=== PATIENT | male | born 1955 | race African-American/Black ===

== ENCOUNTER 2016-11-30 19:30 | Inpatient (IN) | payer OTHER, MEDICARE ==
[~2016-11-30] VITALS: Ht 182.9 cm; Wt 83.7 kg
[~2016-11-30 19:30] MED LIST: AMLO10TA2 PO; CARV12.52 PO; CLON0.1T PO; IRON18TA PO; TRAM50TA PO
[2016-11-30] MEDS ORDERED: PANTOPRAZOLE IV PUSH 40 MG VIAL. IVP ONE (20:00)
[2016-11-30] MEDS ORDERED: IV NORMAL SALINE 1000ML BAG 1,000 ML IV ONE (20:00)
[2016-11-30] MEDS: PANTOPRAZOLE SODIUM IV 80 MG in IV NORMAL SALINE 100ML 100 ML IV SCH (20:05)
[2016-11-30 20:07] LABS: BASO # 0.1 x10^3/uL (0.0-0.2); BASO % 1 % (0-3); EOS % 0 % (0-3); HEMATOCRIT 24.4 % (39.0-53.0); HEMOGLOBIN 7.8 g/dL (13.0-17.5); LYMPH % 10 % (24-48); MEAN CORPUSCULAR HEMOGLOBIN 26 pg (25-35); MEAN CORPUSCULAR HGB CONC 32 g/dL (31-37); MEAN CORPUSCULAR VOLUME 80 fL (79-100); MONO % 5 % (0-9); NEUT % 84 % (31-73); PLATELET COUNT 234 x10^3/uL (140-400); RED BLOOD COUNT 3.05 x10^6/uL (4.30-5.70); RED CELL DISTRIBUTION WIDTH 19.2 % (11.5-14.5); WHITE BLOOD COUNT 20.8 x10^3/uL (4.0-11.0)
--- NOTE | 2016-11-30 20:20 | ED.ADGEN ---
Past Medical History Past Medical History: Diabetes-Type II, Hypertension, Renal Failure Additional Past Medical Histor: KIDNEY DISEASE Past Surgical History: Other Additional Past Surgical Histo: Lt arm dialysis shunt Alcohol Use: None Drug Use: Marijuana Adult General Chief Complaint Chief Complaint: GI PROBLEM HPI HPI Patient is a 61 year old male with history diabetes, hypertension, end-stage renal disease requiring dialysis who presents with multiple episodes of coffee-ground emesis following dialysis at 10 AM this morning. Patient reports diffuse abdominal pain, dizziness lightheadedness accompanied with a syncopal episode. On ED arrival, the patient's tachycardic type hypotensive and mildly diaphoretic. Complains of diffuse abdominal pain and persistent nausea. Patient also reports dark stools for the past several hours. Denies history of cirrhosis, chronic liver disease, peptic ulcer disease or gastritis. Patient takes daily baby aspirin but is not on anticoagulation therapy. No other acute symptoms or complaints. Patient denies routine alcohol use. Review of Systems Review of Systems ROS as per HPI. All other ROS as HPI. Current Medications Current Medications Current Medications Medications (Trade) Dose Ordered Sig/Julian Start Time Stop Time Status Last Admin Dose Admin Fentanyl Citrate (Fentanyl 2ml Vial) 50 mcg 1X ONCE 11/30/16 20:30 11/30/16 20:31 DC 11/30/16 20:16 50 MCG Info (Do NOT chart on this entry -- for MONITORING) 1 each PRN DAILY PRN 11/30/16 20:45 12/02/16 20:44 Iohexol (Omnipaque 300 Mg/ml) 75 ml 1X ONCE 11/30/16 21:00 11/30/16 21:01 DC 11/30/16 21:16 75 ML Metoclopramide HCl (Reglan) 10 mg 1X ONCE 11/30/16 21:30 11/30/16 21:31 DC Ondansetron HCl (Zofran) 8 mg 1X ONCE 11/30/16 20:30 11/30/16 20:31 DC 11/30/16 20:15 8 MG Pantoprazole Sodium (Protonix Vial) 80 mg 1X ONCE 11/30/16 20:00 11/30/16 20:01 DC 11/30/16 20:05 80 MG Pantoprazole Sodium 80 mg/ Sodium Chloride 100 ml @ 10 mls/hr Q10H 11/30/16 20:00 11/30/16 20:05 10 MLS/HR Sodium Chloride 1,000 ml @ 1,000 mls/hr 1X ONCE 11/30/16 20:00 11/30/16 20:59 DC 11/30/16 20:06 1,000 MLS/HR Allergies Allergies Allergies Coded Allergies Type Severity Reaction Last Updated Verified No Known Drug Allergies 08/27/13 No Physical Exam Physical Exam Constitutional: Clammy, weak appearing HENT: Normocephalic, atraumatic, bilateral external ears normal, oropharynx moist, dark brown dried blood around nares and on tongue/ Eyes: PERRLA, EOMI, conjunctiva pale. Neck: Normal range of motion. Cardiovascular: Tachycardic. Lungs & Thorax: Bilateral breath sounds clear to auscultation. Abdomen: Bowel sounds normal, soft, bowel diffuse epigastric pain, no rebound rigidity or guarding. Skin: Diaphoretic. Skin color appropriate for ethnicity. Extremities: No tenderness. Neurologic: Alert and oriented X 3, normal motor function, normal sensory function. Psychologic: Affect normal, judgement normal, mood normal. Current Patient Data Vital Signs Vital Signs Date Time Temp Pulse Resp B/P (MAP) Pulse Ox O2 Delivery O2 Flow Rate FiO2 11/30/16 20:55 96 12 96/54 (68) 100 11/30/16 19:45 Room Air 11/30/16 19:37 97.5 97.5 Lab Values Laboratory Tests Test 11/30/16 19:43 11/30/16 19:56 White Blood Count 20.8 x10^3/uL (4.0-11.0) H Red Blood Count 3.05 x10^6/uL (4.30-5.70) L Hemoglobin 7.8 g/dL (13.0-17.5) L Hematocrit 24.4 % (39.0-53.0) L Mean Corpuscular Volume 80 fL (79-100) Mean Corpuscular Hemoglobin 26 pg (25-35) Mean Corpuscular Hemoglobin Concent 32 g/dL (31-37) Red Cell Distribution Width 19.2 % (11.5-14.5) H Platelet Count 234 x10^3/uL (140-400) Neutrophils (%) (Auto) 84 % (31-73) H Lymphocytes (%) (Auto) 10 % (24-48) L Monocytes (%) (Auto) 5 % (0-9) Eosinophils (%) (Auto) 0 % (0-3) Basophils (%) (Auto) 1 % (0-3) Neutrophils # (Auto) 17.5 x10^3uL (1.8-7.7) H Lymphocytes # (Auto) 2.0 x10^3/uL (1.0-4.8) Monocytes # (Auto) 1.1 x10^3/uL (0.0-1.1) Eosinophils # (Auto) 0.0 x10^3/uL (0.0-0.7) Basophils # (Auto) 0.1 x10^3/uL (0.0-0.2) Segmented Neutrophils % 87 % (35-66) H Lymphocytes % 8 % (24-48) L Monocytes % 4 % (0-10) Basophils % 1 % (0-3) Platelet Estimate Adequate (ADEQUATE) Polychromasia Slight Target Cells Occ Ovalocytes Occ Stomatocytes Occ Prothrombin Time 15.0 SEC (11.7-14.0) H Prothrombin Time INR 1.3 (0.8-1.1) H PTT 31 SEC (24-38) Sodium Level 141 mmol/L (136-145) Potassium Level 4.1 mmol/L (3.5-5.1) Chloride Level 98 mmol/L (98-107) Carbon Dioxide Level 29 mmol/L (21-32) Anion Gap 14 (6-14) Blood Urea Nitrogen 66 mg/dL (8-26) H Creatinine 9.2 mg/dL (0.7-1.3) H Estimated GFR (Cockcroft-Gault) 7.1 BUN/Creatinine Ratio 7 (6-20) Glucose Level 235 mg/dL (70-99) H Calcium Level 8.0 mg/dL (8.5-10.1) L Total Bilirubin 0.3 mg/dL (0.2-1.0) Aspartate Amino Transferase (AST) 10 U/L (15-37) L Alanine Aminotransferase (ALT) 19 U/L (16-63) Alkaline Phosphatase 49 U/L (46-116) Total Protein 7.3 g/dL (6.4-8.2) Albumin 3.1 g/dL (3.4-5.0) L Albumin/Globulin Ratio 0.7 (1.0-1.7) L Lipase 231 U/L (73-393) Ethyl Alcohol Level < 10 mg/dL (0-10) Glucose (Fingerstick) 248 mg/dL (70-99) H Laboratory Tests 11/30/16 19:43 Laboratory Tests 11/30/16 19:43 EKG EKG [EKG: Sinus tach, rate 106, QTC 491, no acute ST-T wave changes.] Radiology/Procedures Radiology/Procedures [CT abdomen pelvis: No acute cardiopulmonary disease.] Course & Med Decision Making Course & Med Decision Making Pertinent Labs and Imaging studies reviewed. (See chart for details) [Patient with acute upper GI bleed with blood loss anemia. Patient initially presents with tachycardia and hypotension with one episode of coffee-ground emesis while in the ED. IV fluids, Protonix bolus and drip given. Abdomen soft, nonsurgical. CT abdomen pelvis is nonacute. Blood pressure, abdominal pain improved with treatment. Patient states he feels much better. Vital signs stabilized. Suspect elevated white blood cell count is stress reaction. Clinically I do not suspect sepsis and multiple boluses of IV fluids are currently contraindicated given patient's end-stage renal disease. Case reviewed in detail with Dr. Mehdi Still. Recommendations are to continue IV fluids, antiemetics, Protonix drips with GI consult in the morning. Patient will be admitted to the ICU. Dr. Martinez accepts care of the patient. Courtesy bridging orders written.] Dragon Disclaimer Dragon Disclaimer This electronic medical record was generated, in whole or in part, using a voice recognition dictation system. HERNANDEZ FIELDS DO Nov 30, 2016 20:20
[2016-11-30 20:24] LABS: CREATININE 9.2 mg/dL (0.7-1.3); GFR 7.1; POTASSIUM 4.1 mmol/L (3.5-5.1)
[2016-11-30] MEDS ORDERED: fentaNYL PF VIAL 100 MCG/2 ML VIAL IV ONE (20:30)
[2016-11-30] MEDS ORDERED: ONDANSETRON PF 4 MG/2 ML VIAL. IV ONE (20:30)
[2016-11-30 20:44] LABS: ALBUMIN 3.1 g/dL (3.4-5.0); ALBUMIN/GLOBULIN RATIO 0.7 (1.0-1.7); TOTAL BILIRUBIN 0.3 mg/dL (0.2-1.0); TOTAL PROTEIN 7.3 g/dL (6.4-8.2)
[2016-11-30] MEDS ORDERED: CONTRAST GIVEN MC PRN (20:45)
[2016-11-30 20:52] LABS: INR 1.3 (0.8-1.1)
[2016-11-30] MEDS ORDERED: IOHEXOL 300 MG/ML 75 ML VIAL IV ONE (21:00)
[2016-11-30] MEDS ORDERED: METOCLOPRAMIDE HCL 10 MG/2 ML VIAL. IV ONE (21:30)
--- NOTE | 2016-11-30 21:35 | RAD ---
CT abdomen and pelvis with contrast History: Left upper quadrant pain, history of kidney failure Technique: After the administration of intravenous contrast, CT imaging was performed of the abdomen and pelvis. No oral contrast was given as per request. Multiplanar images are reviewed. Exposure: One or more of the following individualized dose reduction techniques were utilized for this examination: 1. Automated exposure control 2. Adjustment of the mA and/or kV according to patient size 3. Use of iterative reconstruction technique. Comparison: August 05, 2012 Findings: There is some emphysema of the visualized lung bases. There is no new significant abnormality of the liver, spleen, pancreas, adrenal glands. Band of density along the right dome of the liver is grossly unchanged. Both kidneys enhance without hydronephrosis. There is again 1.3 cm hypodense lesion of the superior right kidney although density measurements indeterminate for simple cyst on this exam 26 Hounsfield units. There is also 1 cm hypodense lesion of the inferior right kidney also with indeterminate density measurements indeterminate for a simple cyst. Tiny hypodense lesion mid left kidney is too small to otherwise characterize at 0.3 cm in size. Kidneys are small.Gallbladder is present without obvious intraluminal abnormality by CT. Accurate evaluation of bowel is limited without oral contrast. There is no significant inflammatory change adjacent to the bowel. There is no evidence of bowel obstruction, free fluid, or free air. Normal appendix is visualized. Relative wall prominence of the stomach could be accentuated by nondistention during exam. Abdominal aortic caliber is within normal limits, scattered plaque present. Urinary bladder is not well distended during exam. Impression: 1. Relative wall prominence of stomach could be due to nondistention during exam unless suspicion for gastritis. 2. Kidneys are small, no hydronephrosis. There are 2 indeterminate small hypodense foci of the right kidney for which nonemergent ultrasound evaluation may be beneficial, also small hypodense lesion of the left kidney too small to characterize accurately. Electronically signed by: Elijah Rodriguez MD (11/30/2016 9:31 PM) [facility]
[2016-11-30 21:39] LABS: % BASOS 1 % (0-3)
[2016-11-30 21:40] LABS: OVALOCYTES OCC; PLT ESTIMATE ADEQUATE (ADEQUATE); POLYCHROMASIA SLIGHT; STOMATOCYTES OCC; TARGET CELLS OCC
[2016-11-30] MEDS ORDERED: ONDANSETRON PF 4 MG/2 ML VIAL. IV PRN (21:45)
[2016-11-30] MEDS: IV NORMAL SALINE 1000ML BAG 1,000 ML IV SCH (22:47)
[2016-11-30 23:20] VITALS: BP 119/85
[2016-11-30 23:30] VITALS: BP 134/61
[2016-11-30 23:45] VITALS: BP 87/57
[2016-12-01] VITALS (34 sets, daily range): BP systolic 81–171; BP diastolic 50–99
[2016-12-01 00:49] LABS: RED BLOOD COUNT 2.63 x10^6/uL (4.30-5.70); RED CELL DISTRIBUTION WIDTH 19.4 % (11.5-14.5); WHITE BLOOD COUNT 19.9 x10^3/uL (4.0-11.0)
[2016-12-01 00:54] LABS: HEMATOCRIT 20.9 % (39.0-53.0); HEMOGLOBIN 6.7 g/dL (13.0-17.5)
--- NOTE | 2016-12-01 02:09 | ACF ---
Admission Forms Criteria GASTROINTESTINAL BLEEDING Clinical Indications for Inpatient Care (Place 'X' for any and all applicable criteria): Ongoing inpatient care may be indicated for gastrointestinal bleeding with ANY ONE of the following (4)(20)(21)(22)(23)(24): [ ]I. Active bleeding (eg, fresh voluminous blood in emesis or nasogastric aspirate, or per rectum) [X]II. Hemodynamic instability [ ]III. Anticoagulation therapy or coagulopathy ((eg, advanced liver disease, irreversible anticoagulation) [ ]IV. Ischemic colitis (22) [ ]V. Endoscopy showing arterial bleeding, adherent clot, nonbleeding visible vessel, varices, flat red spots, ulcer size greater than 2 cm, or portal hypertensive gastropathy [ ]. High-risk low platelet count [ ]VII. Anemia requiring inpatient care as indicated by ANY ONE of the following a)[ ] Cognitive impairment b)[ ] Syncope c)[ ] Heart failure d)[ ] Chest pain e)[ ] Dyspnea f)[ ] Other findings suggesting inadequate perfusion (eg, peripheral or myocardial ischemia, end organ dysfunction) [ ]VIII. High-risk low platelet count [ ]IX. Suspected variceal cause of bleeding as indicated by ANY ONE of the following(27)(28): a)[ ] Known varices b)[ ] Hepatomegaly or splenomegaly c)[ ] Ascites d)[ ] Jaundice or scleral icterus e)[ ] History of liver disease (eg, cirrhosis) f)[ ] Physical findings of portal hypertension (eg, caput medusa) g)[ ] Comorbid disorder indicating risk for portal vein thrombosis (eg , abdominal surgery, sepsis, shock, exchange transfusion, prior umbilical vein catheterization) Extended stay may be needed until ALL of the following are present(20)(38)(47): [ ]a) Hemodynamic stability [ ]b) No evidence of active bleeding (eg, stable Hematocrit) [ ]c) Platelet count, prothrombin time, and partial thromboplastin time acceptable for next level of care [ ]d) Surgical or other acute intervention not needed [ ]e) Oral hydration and diet tolerated The original [employer] content created by Larry Stephenson has been revised. The portions of the content which have been revised are identified through the use of italic text or in bold, and aLrry Stephenson has neither reviewed nor approved the modified material. All other unmodified content is copyright [facility]. Please see references footnoted in the original [facility] edition 2016 Admission Criteria Met?: Yes AUDREY MONTEIRO Dec 01, 2016 02:08
[2016-12-01] MEDS ORDERED: NOREPINEPHRIN PREMIX 250 ML IV ONE (03:40)
[2016-12-01] MEDS ORDERED: NOREPINEPHRIN PREMIX 250 ML IV PRN (04:15)
[2016-12-01] MEDS: PANTOPRAZOLE SODIUM IV 80 MG in IV NORMAL SALINE 100ML 100 ML IV SCH ×3 (04:30→23:19)
[2016-12-01] MEDS: IV NORMAL SALINE 1000ML BAG 1,000 ML IV SCH ×3 (05:44→16:07)
--- NOTE | 2016-12-01 06:05 | EKG ---
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
[2016-12-01] MEDS: MORPHINE SULFATE 4 MG/ML DISP.SYRIN. IV PRN ×2 (06:22→08:31)
--- NOTE | 2016-12-01 07:29 | RAD ---
AP chest radiograph 11/30/2016 Clinical indication: Shortness of air. Comparison: 07/22/2014 Findings: Cardiac and mediastinal silhouettes are within normal limits. There is a stable calcified nodule in the left lung base and bilateral pulmonary gabriella. No pleural effusion, pneumothorax or focal consolidation. Impression: No acute cardiopulmonary abnormality.
[2016-12-01] MEDS ORDERED: PNEUMOC CONJ VACC 23-VALENT 0.5 ML VIAL. VAX IM ONE (09:00)
[2016-12-01] MEDS ORDERED: PNEUMOCOCCAL VAX SCREEN BY RX. MC ONE (09:00)
[2016-12-01 09:31] LABS: CALCIUM 7.3 mg/dL (8.5-10.1); GFR 6.4; POTASSIUM 4.6 mmol/L (3.5-5.1)
--- NOTE | 2016-12-01 09:33 | PDOC2 ---
GI CONSULT Reason For Consult: Hematemesis HPI: HPI: 61 y/o male who developed upper abdominal pain after dialysis yesterday. Subsequently had coffee-ground emesis and presented to ER. Melanotic stools as well. Reasonably stable overnight, but this am, hypotension and small volume coffee-ground emesis (witnessed). No h/o prior GI bleeding. Recently some heartburn and dyspepsia, using TUMS prn. No dysphagia or prior h/o PUD. No prior EGD. Denies liver, GB or pancreatic disease. Smokes. No alcohol. ASA 81mg daily, otherwise no NSAIDS. Stools generally loose w/o h/o overt blood in stool. Had colonoscopy nearly 5 years ago, perhaps with polyps found. PMH: PMH: DM, HTN, ESRD on HD. S/p left arm AV fistula. FH: Family History: No pertinent hx Social History: ALCOHOL: none Drugs: Marijuana ROS: GEN: Denies fevers, chills, sweats HEENT: Denies blurred vision, sore throat CV: Denies chest pain RESP: Denies shortness of air, cough GI: Per HPI : Denies hematuria, dysuria ENDO: Denies weight changes NEURO: Denies confusion, dizziness MSK: Denies weakness, joint pain/swelling SKIN: Denies jaundice, pruritus Vitals: Vitals: Vital Signs Date Time Temp Pulse Resp B/P (MAP) Pulse Ox O2 Delivery O2 Flow Rate FiO2 12/01/16 09:05 112 19 85/54 (64) 99 Room Air 12/01/16 07:00 97.4 97.4 Labs: Labs: Laboratory Tests Test 11/30/16 19:43 11/30/16 19:56 12/01/16 00:30 White Blood Count 20.8 x10^3/uL (4.0-11.0) 19.9 x10^3/uL (4.0-11.0) Red Blood Count 3.05 x10^6/uL (4.30-5.70) 2.63 x10^6/uL (4.30-5.70) Hemoglobin 7.8 g/dL (13.0-17.5) 6.7 g/dL (13.0-17.5) Hematocrit 24.4 % (39.0-53.0) 20.9 % (39.0-53.0) Mean Corpuscular Volume 80 fL (79-100) 79 fL (79-100) Mean Corpuscular Hemoglobin 26 pg (25-35) 26 pg (25-35) Mean Corpuscular Hemoglobin Concent 32 g/dL (31-37) 32 g/dL (31-37) Red Cell Distribution Width 19.2 % (11.5-14.5) 19.4 % (11.5-14.5) Platelet Count 234 x10^3/uL (140-400) 201 x10^3/uL (140-400) Neutrophils (%) (Auto) 84 % (31-73) Lymphocytes (%) (Auto) 10 % (24-48) Monocytes (%) (Auto) 5 % (0-9) Eosinophils (%) (Auto) 0 % (0-3) Basophils (%) (Auto) 1 % (0-3) Neutrophils # (Auto) 17.5 x10^3uL (1.8-7.7) Lymphocytes # (Auto) 2.0 x10^3/uL (1.0-4.8) Monocytes # (Auto) 1.1 x10^3/uL (0.0-1.1) Eosinophils # (Auto) 0.0 x10^3/uL (0.0-0.7) Basophils # (Auto) 0.1 x10^3/uL (0.0-0.2) Segmented Neutrophils % 87 % (35-66) Lymphocytes % 8 % (24-48) Monocytes % 4 % (0-10) Basophils % 1 % (0-3) Platelet Estimate Adequate (ADEQUATE) Polychromasia Slight Target Cells Occ Ovalocytes Occ Stomatocytes Occ Prothrombin Time 15.0 SEC (11.7-14.0) Prothromb Time International Ratio 1.3 (0.8-1.1) Activated Partial Thromboplast Time 31 SEC (24-38) Sodium Level 141 mmol/L (136-145) Potassium Level 4.1 mmol/L (3.5-5.1) Chloride Level 98 mmol/L (98-107) Carbon Dioxide Level 29 mmol/L (21-32) Anion Gap 14 (6-14) Blood Urea Nitrogen 66 mg/dL (8-26) Creatinine 9.2 mg/dL (0.7-1.3) Estimated GFR (Cockcroft-Gault) 7.1 BUN/Creatinine Ratio 7 (6-20) Glucose Level 235 mg/dL (70-99) Calcium Level 8.0 mg/dL (8.5-10.1) Total Bilirubin 0.3 mg/dL (0.2-1.0) Aspartate Amino Transf (AST/SGOT) 10 U/L (15-37) Alanine Aminotransferase (ALT/SGPT) 19 U/L (16-63) Alkaline Phosphatase 49 U/L (46-116) Total Protein 7.3 g/dL (6.4-8.2) Albumin 3.1 g/dL (3.4-5.0) Albumin/Globulin Ratio 0.7 (1.0-1.7) Lipase 231 U/L (73-393) Ethyl Alcohol Level < 10 mg/dL (0-10) Glucose (Fingerstick) 248 mg/dL (70-99) Allergies: Coded Allergies: No Known Drug Allergies (Unverified , 08/27/13) Medications: Current Medications Medications (Trade) Dose Ordered Sig/Julian Route PRN Reason Start Time Stop Time Status Last Admin Dose Admin Sodium Chloride 1,000 ml @ 1,000 mls/hr 1X ONCE IV 11/30/16 20:00 11/30/16 20:59 DC 11/30/16 20:06 Pantoprazole Sodium (Protonix Vial) 80 mg 1X ONCE IVP 11/30/16 20:00 11/30/16 20:01 DC 11/30/16 20:05 Pantoprazole Sodium 80 mg/ Sodium Chloride 100 ml @ 10 mls/hr Q10H IV 11/30/16 20:00 12/01/16 04:30 Ondansetron HCl (Zofran) 8 mg 1X ONCE IV 11/30/16 20:30 11/30/16 20:31 DC 11/30/16 20:15 Fentanyl Citrate (Fentanyl 2ml Vial) 50 mcg 1X ONCE IV 11/30/16 20:30 11/30/16 20:31 DC 11/30/16 20:16 Iohexol (Omnipaque 300 Mg/ml) 75 ml 1X ONCE IV 11/30/16 21:00 11/30/16 21:01 DC 11/30/16 21:16 Metoclopramide HCl (Reglan) 10 mg 1X ONCE IV 11/30/16 21:30 11/30/16 21:31 DC 11/30/16 22:46 Sodium Chloride 1,000 ml @ 150 mls/hr Q6H40M IV 11/30/16 22:00 12/01/16 21:59 12/01/16 05:44 Norepinephrine Bitartrate 250 ml @ 0 mls/hr CONT PRN IV SEE I/O RECORD 12/01/16 04:15 12/01/16 04:32 Morphine Sulfate 2 mg PRN Q2HR PRN IV SEVERE PAIN 12/01/16 06:15 12/01/16 08:31 Imaging: Imaging: CT not revealing. PE: GEN: NAD HEENT: Atraumatic, PERRLA LUNGS: CTAB HEART: RRR, no murmurs ABD: NABS, S/ND, epigastric tenderness, no masses EXTREMITY: No edema SKIN: No rashes, no jaundice NEURO/PSYCH: A & O 3 A/P: A/P: IMP: UGI bleeding in setting of recent dyspepsia--PUD, MW most likely. No history of liver disease, so varices less likely. Vascular lesions possible ( avm's, Dieulafoy's). H/o polyps. REC: Continue IV PPI. Urgent EGD after some volume/blood. --other pending. Thanks. CHRISTINE MODI MD Dec 01, 2016 09:33
--- NOTE | 2016-12-01 09:48 | PDOC1 ---
History and Physical Date of Admission Date of Admission DATE: 12/01/16 TIME: 09:48 Identification/Chief Complaint Chief Complaint vomiting blood Problems: Source Source: Chart review, Patient History of Present Illness History of Present Illness Mr. Pete, is a 61 y/o male admit for acute anemia, s/p vomiting blood. coffee ground emesis X2, then once in ICU this AM He reported acute upper abdominal pain after dialysis yesterday. . no prior Hx GERD or abd pain or bleed, he takes aspirin 82 daily he also reports recent change in stools, darker, not sticky BP low this AM, fluid bolus, 1 u PRBC given, Dr. Still to EGD in ICU This AM, 2 other U PRBC pending Past Medical History Cardiovascular: HTN Renal/: Chronic renal failure Past Surgical History Past Surgical History: No pertinent history Family History Family History: Heart Disease, Hypertension Social History Smoke: No ALCOHOL: none Drugs: Marijuana Current Medications Current Medications Current Medications Sodium Chloride 1,000 ml @ 1,000 mls/hr 1X ONCE IV Last administered on 20:06; Start 11/30/16 at 20:00; Stop 11/30/16 at 20:59; Status DC Pantoprazole Sodium (Protonix Vial) 80 mg 1X ONCE IVP Last administered on 11/30 20:05; Start 11/30/16 at 20:00; Stop 11/30/16 at 20:01; Status DC Pantoprazole Sodium 80 mg/ Sodium Chloride 100 ml @ 10 mls/hr Q10H IV Last administered on 12/01/16 04:30; Start 11/30/16 at 20:00 Ondansetron HCl (Zofran) 8 mg 1X ONCE IV Last administered on 11/30/16 20:15; Start 11/30/16 at 20:30; Stop 11/30/16 at 20:31; Status DC Fentanyl Citrate (Fentanyl 2ml Vial) 50 mcg 1X ONCE IV Last administered on 20:16; Start 11/30/16 at 20:30; Stop 11/30/16 at 20:31; Status DC Iohexol (Omnipaque 300 Mg/ml) 75 ml 1X ONCE IV Last administered on 11/30/16 21:16; Start 11/30/16 at 21:00; Stop 11/30/16 at 21:01; Status DC Info (Do NOT chart on this entry -- for MONITORING) 1 each PRN DAILY PRN MC SEE COMMENTS; Start 11/30/16 at 20:45; Stop 12/02/16 at 20:44 Metoclopramide HCl (Reglan) 10 mg 1X ONCE IV Last administered on 11/30/16 22: 46; Start 11/30/16 at 21:30; Stop 11/30/16 at 21:31; Status DC Ondansetron HCl (Zofran) 4 mg PRN Q8HRS PRN IV NAUSEA/VOMITING; Start 11/30/16 at 21:45; Stop 12/01/16 at 21:44 Sodium Chloride 1,000 ml @ 150 mls/hr Q6H40M IV Last administered on 12/01/16 05:44; Start 11/30/16 at 22:00; Stop 12/01/16 at 21:59 Pneumococcal Polyvalent Vaccine (Do NOT chart on this placeholder) 1 each 1X ONCE MC ; Start 12/01/16 at 09:00; Stop 12/01/16 at 09:01; Status UNV Pneumococcal Polyvalent Vaccine (Pneumovax 23) 0.5 ml ONCE ONCE VAX IM ; Start 12/01/16 at 09:00; Stop 12/01/16 at 09:01; Status DC Norepinephrine Bitartrate 250 ml @ As Directed STK-MED ONCE IV ; Start 12/01/16 at 03:40; Stop 12/01/16 at 03:41; Status DC Norepinephrine Bitartrate 250 ml @ 0 mls/hr CONT PRN IV SEE I/O RECORD Last administered on 12/01/16 04:32; Start 12/01/16 at 04:15 Morphine Sulfate 2 mg PRN Q2HR PRN IV SEVERE PAIN Last administered on 08:31; Start 12/01/16 at 06:15 Active Scripts Active Reported Iron 18 Mg Tablet 65 Mg PO Tramadol Hcl 50 Mg Tablet 50 Mg PO TID Amlodipine Besylate 10 Mg Tablet 10 Mg PO DAILY Clonidine Hcl 0.1 Mg Tablet 0.1 Mg PO BID Carvedilol 12.5 Mg Tablet 12.5 Mg PO BID Allergies Allergies: Coded Allergies: No Known Drug Allergies (Unverified , 08/27/13) ROS General: YES: Fatigue, Malaise, Appetite, No: Chills, Night Sweats, Other PSYCHOLOGICAL ROS: No: Anxiety, Behavioral Disorder, Concentration difficultie , Decreased libido, Depression, Disorientation, Hallucinations, Hostility, Irritablity, Memory difficulties, Mood Swings, Obsessive thoughts, Physical abuse, Sexual abuse, Sleep disturbances, Suicidal ideation, Other Eyes: No Blurry vision, No Decreased vision, No Double vision, No Dry eyes, No Excessive tearing, No Eye Pain, No Itchy Eyes, No Loss of vision, No Photophobia , No Scotomata, No Uses contacts, No Uses glasses, No Other HEENT: No: Heacaches, Visual Changes, Hearing change, Nasal congestion, Nasal discharge, Oral lesions, Sinus pain, Sore Throat, Epistaxis, Sneezing, Snoring, Tinnitus, Vertigo, Vocal changes, Other Respiratory: No: Cough, Hemoptysis, Orthopnea, Pleuritic Pain, Shortness of breath, SOB with excertion, Sputum Changes, Stridor, Tachypnea, Wheezing, Other Cardiovascular: No Chest Pain, No Palpitations, No Orthopnea, No Paroxysmal Noc. Dyspnea, No Edema, No Lt Headedness, No Other Gastrointestinal: Yes Nausea, Yes Vomiting, No Abdominal Pain, No Diarrhea, No Constipation, No Melena, No Hematochezia, No Other Genitourinary: No Dysuria, No Frequency, No Incontinence, No Hematuria, No Retention, No Discharge, No Urgency, No Pain, No Flank Pain, No Other, No , No , No , No , No , No , No Musculoskeletal: No Gait Disturbance, No Joint Pain, No Joint Stiffness, No Joint Swelling, No Muscle Pain, No Muscular Weakness, No Pain In:, No Swelling In:, No Other Neurological: No Behavorial Changes, No Bowel/Bladder ControlChng, No Confusion , No Dizziness, No Gait Disturbance, No Headaches, No Impaired Coord/balance, No Memory Loss, No Numbness/Tingling, No Seizures, No Speech Problems, No Tremors, No Visual Changes, No Weakness, No Other Skin: No Dry Skin, No Eczema, No Hair Changes, No Lumps, No Mole Changes, No Mottling, No Nail Changes, No Pruritus, No Rash, No Skin Lesion Changes, No Other, No Acne Physical Exam General: Alert, Cooperative, mild distress, moderate distress HEENT: Atraumatic, PERRLA Lungs: Clear to auscultation Abdomen: Normal bowel sounds Psych/Mental Status: Mental status NL, Other (lethargic) Vitals Vitals Vital Signs Date Time Temp Pulse Resp B/P (MAP) Pulse Ox O2 Delivery O2 Flow Rate FiO2 12/01/16 09:05 112 19 85/54 (64) 99 Room Air 12/01/16 07:00 97.4 97.4 Labs Labs Laboratory Tests Test 11/30/16 19:43 11/30/16 19:56 12/01/16 00:30 12/01/16 08:35 White Blood Count 20.8 x10^3/uL (4.0-11.0) 19.9 x10^3/uL (4.0-11.0) Red Blood Count 3.05 x10^6/uL (4.30-5.70) 2.63 x10^6/uL (4.30-5.70) Hemoglobin 7.8 g/dL (13.0-17.5) 6.7 g/dL (13.0-17.5) Hematocrit 24.4 % (39.0-53.0) 20.9 % (39.0-53.0) Mean Corpuscular Volume 80 fL (79-100) 79 fL (79-100) Mean Corpuscular Hemoglobin 26 pg (25-35) 26 pg (25-35) Mean Corpuscular Hemoglobin Concent 32 g/dL (31-37) 32 g/dL (31-37) Red Cell Distribution Width 19.2 % (11.5-14.5) 19.4 % (11.5-14.5) Platelet Count 234 x10^3/uL (140-400) 201 x10^3/uL (140-400) Neutrophils (%) (Auto) 84 % (31-73) Lymphocytes (%) (Auto) 10 % (24-48) Monocytes (%) (Auto) 5 % (0-9) Eosinophils (%) (Auto) 0 % (0-3) Basophils (%) (Auto) 1 % (0-3) Neutrophils # (Auto) 17.5 x10^3uL (1.8-7.7) Lymphocytes # (Auto) 2.0 x10^3/uL (1.0-4.8) Monocytes # (Auto) 1.1 x10^3/uL (0.0-1.1) Eosinophils # (Auto) 0.0 x10^3/uL (0.0-0.7) Basophils # (Auto) 0.1 x10^3/uL (0.0-0.2) Segmented Neutrophils % 87 % (35-66) Lymphocytes % 8 % (24-48) Monocytes % 4 % (0-10) Basophils % 1 % (0-3) Platelet Estimate Adequate (ADEQUATE) Polychromasia Slight Target Cells Occ Ovalocytes Occ Stomatocytes Occ Prothrombin Time 15.0 SEC (11.7-14.0) Prothromb Time International Ratio 1.3 (0.8-1.1) Activated Partial Thromboplast Time 31 SEC (24-38) Sodium Level 141 mmol/L (136-145) 142 mmol/L (136-145) Potassium Level 4.1 mmol/L (3.5-5.1) 4.6 mmol/L (3.5-5.1) Chloride Level 98 mmol/L (98-107) 103 mmol/L (98-107) Carbon Dioxide Level 29 mmol/L (21-32) 24 mmol/L (21-32) Anion Gap 14 (6-14) 15 (6-14) Blood Urea Nitrogen 66 mg/dL (8-26) 82 mg/dL (8-26) Creatinine 9.2 mg/dL (0.7-1.3) 10.0 mg/dL (0.7-1.3) Estimated GFR (Cockcroft-Gault) 7.1 6.4 BUN/Creatinine Ratio 7 (6-20) Glucose Level 235 mg/dL (70-99) 194 mg/dL (70-99) Calcium Level 8.0 mg/dL (8.5-10.1) 7.3 mg/dL (8.5-10.1) Total Bilirubin 0.3 mg/dL (0.2-1.0) Aspartate Amino Transf (AST/SGOT) 10 U/L (15-37) Alanine Aminotransferase (ALT/SGPT) 19 U/L (16-63) Alkaline Phosphatase 49 U/L (46-116) Total Protein 7.3 g/dL (6.4-8.2) Albumin 3.1 g/dL (3.4-5.0) Albumin/Globulin Ratio 0.7 (1.0-1.7) Lipase 231 U/L (73-393) Ethyl Alcohol Level < 10 mg/dL (0-10) Glucose (Fingerstick) 248 mg/dL (70-99) Laboratory Tests Test 11/30/16 19:43 11/30/16 19:56 12/01/16 00:30 12/01/16 08:35 White Blood Count 20.8 x10^3/uL (4.0-11.0) 19.9 x10^3/uL (4.0-11.0) Red Blood Count 3.05 x10^6/uL (4.30-5.70) 2.63 x10^6/uL (4.30-5.70) Hemoglobin 7.8 g/dL (13.0-17.5) 6.7 g/dL (13.0-17.5) Hematocrit 24.4 % (39.0-53.0) 20.9 % (39.0-53.0) Mean Corpuscular Volume 80 fL (79-100) 79 fL (79-100) Mean Corpuscular Hemoglobin 26 pg (25-35) 26 pg (25-35) Mean Corpuscular Hemoglobin Concent 32 g/dL (31-37) 32 g/dL (31-37) Red Cell Distribution Width 19.2 % (11.5-14.5) 19.4 % (11.5-14.5) Platelet Count 234 x10^3/uL (140-400) 201 x10^3/uL (140-400) Neutrophils (%) (Auto) 84 % (31-73) Lymphocytes (%) (Auto) 10 % (24-48) Monocytes (%) (Auto) 5 % (0-9) Eosinophils (%) (Auto) 0 % (0-3) Basophils (%) (Auto) 1 % (0-3) Neutrophils # (Auto) 17.5 x10^3uL (1.8-7.7) Lymphocytes # (Auto) 2.0 x10^3/uL (1.0-4.8) Monocytes # (Auto) 1.1 x10^3/uL (0.0-1.1) Eosinophils # (Auto) 0.0 x10^3/uL (0.0-0.7) Basophils # (Auto) 0.1 x10^3/uL (0.0-0.2) Segmented Neutrophils % 87 % (35-66) Lymphocytes % 8 % (24-48) Monocytes % 4 % (0-10) Basophils % 1 % (0-3) Platelet Estimate Adequate (ADEQUATE) Polychromasia Slight Target Cells Occ Ovalocytes Occ Stomatocytes Occ Prothrombin Time 15.0 SEC (11.7-14.0) Prothromb Time International Ratio 1.3 (0.8-1.1) Activated Partial Thromboplast Time 31 SEC (24-38) Sodium Level 141 mmol/L (136-145) 142 mmol/L (136-145) Potassium Level 4.1 mmol/L (3.5-5.1) 4.6 mmol/L (3.5-5.1) Chloride Level 98 mmol/L (98-107) 103 mmol/L (98-107) Carbon Dioxide Level 29 mmol/L (21-32) 24 mmol/L (21-32) Anion Gap 14 (6-14) 15 (6-14) Blood Urea Nitrogen 66 mg/dL (8-26) 82 mg/dL (8-26) Creatinine 9.2 mg/dL (0.7-1.3) 10.0 mg/dL (0.7-1.3) Estimated GFR (Cockcroft-Gault) 7.1 6.4 BUN/Creatinine Ratio 7 (6-20) Glucose Level 235 mg/dL (70-99) 194 mg/dL (70-99) Calcium Level 8.0 mg/dL (8.5-10.1) 7.3 mg/dL (8.5-10.1) Total Bilirubin 0.3 mg/dL (0.2-1.0) Aspartate Amino Transf (AST/SGOT) 10 U/L (15-37) Alanine Aminotransferase (ALT/SGPT) 19 U/L (16-63) Alkaline Phosphatase 49 U/L (46-116) Total Protein 7.3 g/dL (6.4-8.2) Albumin 3.1 g/dL (3.4-5.0) Albumin/Globulin Ratio 0.7 (1.0-1.7) Lipase 231 U/L (73-393) Ethyl Alcohol Level < 10 mg/dL (0-10) Glucose (Fingerstick) 248 mg/dL (70-99) VTE Prophylaxis Ordered VTE Prophylaxis Devices: Yes VTE Pharmacological Prophylaxi: Contraindicated Assessment/Plan Assessment/Plan ACute blood loss anemia GI bleed, Upper, PPI IV BID IV fluid 3 U prbc, then recheck X2 today htn,, currently hypotensive, fluid bolus PRN< hold home BP meds ESRD, renal to follow, will be due 12/02 admitted to ICU SARAH CASTELLON MD Dec 01, 2016 09:48
[2016-12-01 10:18] LABS: BASO % 0 % (0-3); EOS % 0 % (0-3); LYMPH # 2.5 x10^3/uL (1.0-4.8); LYMPH % 13 % (24-48); MEAN CORPUSCULAR HEMOGLOBIN 26 pg (25-35); MEAN CORPUSCULAR HGB CONC 33 g/dL (31-37); MEAN CORPUSCULAR VOLUME 80 fL (79-100); MONO % 7 % (0-9); NEUT % 80 % (31-73); PLATELET COUNT 177 x10^3/uL (140-400); RED BLOOD COUNT 2.22 x10^6/uL (4.30-5.70); RED CELL DISTRIBUTION WIDTH 17.9 % (11.5-14.5)
[2016-12-01 10:25] LABS: HEMATOCRIT 17.7 % (39.0-53.0); HEMOGLOBIN 5.8 g/dL (13.0-17.5)
--- NOTE | 2016-12-01 10:33 | PDOC4 ---
PROCEDURE Procedure EGD/clip x 2 Ind: UGI bleeding. Meds: per anesthesia. Findings: E--Normal. No varices, M-W tear. G--Blood, clots obscuring fundus. Cardia w/o varices or gastric MW. Brisk oozing of BRB from upper body, posterior wall. Unable to clear field to see source. 2 clips blindly placed w/o effect. More distal stomach OK. D--Normal to second portion save old blood. Tolerated well. Due to software malfunction, no photos. IMP: Gastric bleeding, seemingly arterial--ulcer, Dieulafoy's possible. AVM less likely given nature of bleeding. REC: Continue PPI, blood, ivf's. Consult IR re; embolization. Consider surgical consult for standby. Thanks. CHRISTINE MODI MD Dec 01, 2016 10:33
[2016-12-01] MEDS ORDERED: EPINEPHrine SYRINGE 1 MG/10 ML SYRINGE ONE (10:42)
[2016-12-01] MEDS ORDERED: IOHEXOL 300 MG/ML 100ML VIAL. ONE ×2 (12:33→14:38)
[2016-12-01] MEDS ORDERED: LIDOCAINE 1% / SOD BICARB 8.4% 20 ML VIAL. IJ ONE ×2 (12:34→14:45)
[2016-12-01] MEDS ORDERED: HEPARIN for ARTERIAL LINE 1,500 ML ONE (12:34)
[2016-12-01] MEDS ORDERED: MIDAZOLAM HCL/PF 5 MG/5 ML VIAL. ONE (14:09)
[2016-12-01] MEDS ORDERED: fentaNYL PF VIAL 100 MCG/2 ML VIAL ONE (14:09)
[2016-12-01] MEDS ORDERED: MIDAZOLAM HCL/PF 5 MG/5 ML VIAL. IV ONE (14:45)
[2016-12-01] MEDS ORDERED: fentaNYL PF VIAL 100 MCG/2 ML VIAL IV ONE (14:45)
[2016-12-01] MEDS ORDERED: IOHEXOL 300 MG/ML 100ML VIAL. IART ONE (14:45)
--- NOTE | 2016-12-01 15:54 | PDOC ---
G I PROGRESS NOTE Objective Angio done. Reviewed with IR. No active bleeding at time of procedure; no embolization. One clip still present in general area of active bleeding, other free in lumen. Review of Relevant I have reviewed the following items tomas (where applicable) has been applied. Labs Laboratory Tests Test 11/30/16 19:43 11/30/16 19:56 11/30/16 23:25 12/01/16 00:30 White Blood Count 20.8 x10^3/uL (4.0-11.0) 19.9 x10^3/uL (4.0-11.0) Red Blood Count 3.05 x10^6/uL (4.30-5.70) 2.63 x10^6/uL (4.30-5.70) Hemoglobin 7.8 g/dL (13.0-17.5) 6.7 g/dL (13.0-17.5) Hematocrit 24.4 % (39.0-53.0) 20.9 % (39.0-53.0) Mean Corpuscular Volume 80 fL (79-100) 79 fL (79-100) Mean Corpuscular Hemoglobin 26 pg (25-35) 26 pg (25-35) Mean Corpuscular Hemoglobin Concent 32 g/dL (31-37) 32 g/dL (31-37) Red Cell Distribution Width 19.2 % (11.5-14.5) 19.4 % (11.5-14.5) Platelet Count 234 x10^3/uL (140-400) 201 x10^3/uL (140-400) Neutrophils (%) (Auto) 84 % (31-73) Lymphocytes (%) (Auto) 10 % (24-48) Monocytes (%) (Auto) 5 % (0-9) Eosinophils (%) (Auto) 0 % (0-3) Basophils (%) (Auto) 1 % (0-3) Neutrophils # (Auto) 17.5 x10^3uL (1.8-7.7) Lymphocytes # (Auto) 2.0 x10^3/uL (1.0-4.8) Monocytes # (Auto) 1.1 x10^3/uL (0.0-1.1) Eosinophils # (Auto) 0.0 x10^3/uL (0.0-0.7) Basophils # (Auto) 0.1 x10^3/uL (0.0-0.2) Segmented Neutrophils % 87 % (35-66) Lymphocytes % 8 % (24-48) Monocytes % 4 % (0-10) Basophils % 1 % (0-3) Platelet Estimate Adequate (ADEQUATE) Polychromasia Slight Target Cells Occ Ovalocytes Occ Stomatocytes Occ Prothrombin Time 15.0 SEC (11.7-14.0) Prothromb Time International Ratio 1.3 (0.8-1.1) Activated Partial Thromboplast Time 31 SEC (24-38) Sodium Level 141 mmol/L (136-145) Potassium Level 4.1 mmol/L (3.5-5.1) Chloride Level 98 mmol/L (98-107) Carbon Dioxide Level 29 mmol/L (21-32) Anion Gap 14 (6-14) Blood Urea Nitrogen 66 mg/dL (8-26) Creatinine 9.2 mg/dL (0.7-1.3) Estimated GFR (Cockcroft-Gault) 7.1 BUN/Creatinine Ratio 7 (6-20) Glucose Level 235 mg/dL (70-99) Calcium Level 8.0 mg/dL (8.5-10.1) Total Bilirubin 0.3 mg/dL (0.2-1.0) Aspartate Amino Transf (AST/SGOT) 10 U/L (15-37) Alanine Aminotransferase (ALT/SGPT) 19 U/L (16-63) Alkaline Phosphatase 49 U/L (46-116) Total Protein 7.3 g/dL (6.4-8.2) Albumin 3.1 g/dL (3.4-5.0) Albumin/Globulin Ratio 0.7 (1.0-1.7) Lipase 231 U/L (73-393) Ethyl Alcohol Level < 10 mg/dL (0-10) Glucose (Fingerstick) 248 mg/dL (70-99) Nasal Screen MRSA (PCR) Negative (Negative) Test 12/01/16 08:35 White Blood Count 19.0 x10^3/uL (4.0-11.0) Red Blood Count 2.22 x10^6/uL (4.30-5.70) Hemoglobin 5.8 g/dL (13.0-17.5) Hematocrit 17.7 % (39.0-53.0) Mean Corpuscular Volume 80 fL (79-100) Mean Corpuscular Hemoglobin 26 pg (25-35) Mean Corpuscular Hemoglobin Concent 33 g/dL (31-37) Red Cell Distribution Width 17.9 % (11.5-14.5) Platelet Count 177 x10^3/uL (140-400) Neutrophils (%) (Auto) 80 % (31-73) Lymphocytes (%) (Auto) 13 % (24-48) Monocytes (%) (Auto) 7 % (0-9) Eosinophils (%) (Auto) 0 % (0-3) Basophils (%) (Auto) 0 % (0-3) Neutrophils # (Auto) 15.1 x10^3uL (1.8-7.7) Lymphocytes # (Auto) 2.5 x10^3/uL (1.0-4.8) Monocytes # (Auto) 1.3 x10^3/uL (0.0-1.1) Eosinophils # (Auto) 0.0 x10^3/uL (0.0-0.7) Basophils # (Auto) 0.0 x10^3/uL (0.0-0.2) Sodium Level 142 mmol/L (136-145) Potassium Level 4.6 mmol/L (3.5-5.1) Chloride Level 103 mmol/L (98-107) Carbon Dioxide Level 24 mmol/L (21-32) Anion Gap 15 (6-14) Blood Urea Nitrogen 82 mg/dL (8-26) Creatinine 10.0 mg/dL (0.7-1.3) Estimated GFR (Cockcroft-Gault) 6.4 Glucose Level 194 mg/dL (70-99) Calcium Level 7.3 mg/dL (8.5-10.1) Laboratory Tests Test 11/30/16 19:43 11/30/16 19:56 11/30/16 23:25 12/01/16 00:30 White Blood Count 20.8 x10^3/uL (4.0-11.0) 19.9 x10^3/uL (4.0-11.0) Red Blood Count 3.05 x10^6/uL (4.30-5.70) 2.63 x10^6/uL (4.30-5.70) Hemoglobin 7.8 g/dL (13.0-17.5) 6.7 g/dL (13.0-17.5) Hematocrit 24.4 % (39.0-53.0) 20.9 % (39.0-53.0) Mean Corpuscular Volume 80 fL (79-100) 79 fL (79-100) Mean Corpuscular Hemoglobin 26 pg (25-35) 26 pg (25-35) Mean Corpuscular Hemoglobin Concent 32 g/dL (31-37) 32 g/dL (31-37) Red Cell Distribution Width 19.2 % (11.5-14.5) 19.4 % (11.5-14.5) Platelet Count 234 x10^3/uL (140-400) 201 x10^3/uL (140-400) Neutrophils (%) (Auto) 84 % (31-73) Lymphocytes (%) (Auto) 10 % (24-48) Monocytes (%) (Auto) 5 % (0-9) Eosinophils (%) (Auto) 0 % (0-3) Basophils (%) (Auto) 1 % (0-3) Neutrophils # (Auto) 17.5 x10^3uL (1.8-7.7) Lymphocytes # (Auto) 2.0 x10^3/uL (1.0-4.8) Monocytes # (Auto) 1.1 x10^3/uL (0.0-1.1) Eosinophils # (Auto) 0.0 x10^3/uL (0.0-0.7) Basophils # (Auto) 0.1 x10^3/uL (0.0-0.2) Segmented Neutrophils % 87 % (35-66) Lymphocytes % 8 % (24-48) Monocytes % 4 % (0-10) Basophils % 1 % (0-3) Platelet Estimate Adequate (ADEQUATE) Polychromasia Slight Target Cells Occ Ovalocytes Occ Stomatocytes Occ Prothrombin Time 15.0 SEC (11.7-14.0) Prothromb Time International Ratio 1.3 (0.8-1.1) Activated Partial Thromboplast Time 31 SEC (24-38) Sodium Level 141 mmol/L (136-145) Potassium Level 4.1 mmol/L (3.5-5.1) Chloride Level 98 mmol/L (98-107) Carbon Dioxide Level 29 mmol/L (21-32) Anion Gap 14 (6-14) Blood Urea Nitrogen 66 mg/dL (8-26) Creatinine 9.2 mg/dL (0.7-1.3) Estimated GFR (Cockcroft-Gault) 7.1 BUN/Creatinine Ratio 7 (6-20) Glucose Level 235 mg/dL (70-99) Calcium Level 8.0 mg/dL (8.5-10.1) Total Bilirubin 0.3 mg/dL (0.2-1.0) Aspartate Amino Transf (AST/SGOT) 10 U/L (15-37) Alanine Aminotransferase (ALT/SGPT) 19 U/L (16-63) Alkaline Phosphatase 49 U/L (46-116) Total Protein 7.3 g/dL (6.4-8.2) Albumin 3.1 g/dL (3.4-5.0) Albumin/Globulin Ratio 0.7 (1.0-1.7) Lipase 231 U/L (73-393) Ethyl Alcohol Level < 10 mg/dL (0-10) Glucose (Fingerstick) 248 mg/dL (70-99) Nasal Screen MRSA (PCR) Negative (Negative) Test 12/01/16 08:35 White Blood Count 19.0 x10^3/uL (4.0-11.0) Red Blood Count 2.22 x10^6/uL (4.30-5.70) Hemoglobin 5.8 g/dL (13.0-17.5) Hematocrit 17.7 % (39.0-53.0) Mean Corpuscular Volume 80 fL (79-100) Mean Corpuscular Hemoglobin 26 pg (25-35) Mean Corpuscular Hemoglobin Concent 33 g/dL (31-37) Red Cell Distribution Width 17.9 % (11.5-14.5) Platelet Count 177 x10^3/uL (140-400) Neutrophils (%) (Auto) 80 % (31-73) Lymphocytes (%) (Auto) 13 % (24-48) Monocytes (%) (Auto) 7 % (0-9) Eosinophils (%) (Auto) 0 % (0-3) Basophils (%) (Auto) 0 % (0-3) Neutrophils # (Auto) 15.1 x10^3uL (1.8-7.7) Lymphocytes # (Auto) 2.5 x10^3/uL (1.0-4.8) Monocytes # (Auto) 1.3 x10^3/uL (0.0-1.1) Eosinophils # (Auto) 0.0 x10^3/uL (0.0-0.7) Basophils # (Auto) 0.0 x10^3/uL (0.0-0.2) Sodium Level 142 mmol/L (136-145) Potassium Level 4.6 mmol/L (3.5-5.1) Chloride Level 103 mmol/L (98-107) Carbon Dioxide Level 24 mmol/L (21-32) Anion Gap 15 (6-14) Blood Urea Nitrogen 82 mg/dL (8-26) Creatinine 10.0 mg/dL (0.7-1.3) Estimated GFR (Cockcroft-Gault) 6.4 Glucose Level 194 mg/dL (70-99) Calcium Level 7.3 mg/dL (8.5-10.1) Medications Current Medications Sodium Chloride 1,000 ml @ 1,000 mls/hr 1X ONCE IV Last administered on 20:06; Start 11/30/16 at 20:00; Stop 11/30/16 at 20:59; Status DC Pantoprazole Sodium (Protonix Vial) 80 mg 1X ONCE IVP Last administered on 11/30 20:05; Start 11/30/16 at 20:00; Stop 11/30/16 at 20:01; Status DC Pantoprazole Sodium 80 mg/ Sodium Chloride 100 ml @ 10 mls/hr Q10H IV Last administered on 12/01/16 04:30; Start 11/30/16 at 20:00 Ondansetron HCl (Zofran) 8 mg 1X ONCE IV Last administered on 11/30/16 20:15; Start 11/30/16 at 20:30; Stop 11/30/16 at 20:31; Status DC Fentanyl Citrate (Fentanyl 2ml Vial) 50 mcg 1X ONCE IV Last administered on 20:16; Start 11/30/16 at 20:30; Stop 11/30/16 at 20:31; Status DC Iohexol (Omnipaque 300 Mg/ml) 75 ml 1X ONCE IV Last administered on 11/30/16 21:16; Start 11/30/16 at 21:00; Stop 11/30/16 at 21:01; Status DC Info (Do NOT chart on this entry -- for MONITORING) 1 each PRN DAILY PRN MC SEE COMMENTS; Start 11/30/16 at 20:45; Stop 12/02/16 at 20:44 Metoclopramide HCl (Reglan) 10 mg 1X ONCE IV Last administered on 11/30/16 22: 46; Start 11/30/16 at 21:30; Stop 11/30/16 at 21:31; Status DC Ondansetron HCl (Zofran) 4 mg PRN Q8HRS PRN IV NAUSEA/VOMITING; Start 11/30/16 at 21:45; Stop 12/01/16 at 21:44 Sodium Chloride 1,000 ml @ 150 mls/hr Q6H40M IV Last administered on 12/01/16 05:44; Start 11/30/16 at 22:00; Stop 12/01/16 at 21:59 Pneumococcal Polyvalent Vaccine (Do NOT chart on this placeholder) 1 each 1X ONCE MC ; Start 12/01/16 at 09:00; Stop 12/01/16 at 09:01; Status UNV Pneumococcal Polyvalent Vaccine (Pneumovax 23) 0.5 ml ONCE ONCE VAX IM ; Start 12/01/16 at 09:00; Stop 12/01/16 at 09:01; Status DC Norepinephrine Bitartrate 250 ml @ As Directed STK-MED ONCE IV ; Start 12/01/16 at 03:40; Stop 12/01/16 at 03:41; Status DC Norepinephrine Bitartrate 250 ml @ 0 mls/hr CONT PRN IV SEE I/O RECORD Last administered on 12/01/16 04:32; Start 12/01/16 at 04:15 Morphine Sulfate 2 mg PRN Q2HR PRN IV SEVERE PAIN Last administered on 08:31; Start 12/01/16 at 06:15 Epinephrine HCl (EPINEPHrine SYRINGE) 1 mg STK-MED ONCE .ROUTE ; Start 12/01/16 at 10:42; Stop 12/01/16 at 10:43; Status DC Iohexol (Omnipaque 300 Mg/ml) 100 ml STK-MED ONCE .ROUTE ; Start 12/01/16 at 12: 33; Stop 12/01/16 at 12:34; Status DC Lidocaine/Sodium Bicarbonate (Buffered Lidocaine 1%) 20 ml STK-MED ONCE IJ ; Start 12/01/16 at 12:34; Stop 12/01/16 at 12:35; Status DC Heparin Sodium/ Sodium Chloride 1,500 ml @ As Directed STK-MED ONCE .ROUTE ; Start 12/01/16 at 12:34; Stop 12/01/16 at 12:35; Status DC Midazolam HCl (Versed) 5 mg STK-MED ONCE .ROUTE ; Start 12/01/16 at 14:09; Stop 12/01/16 at 14:10; Status DC Fentanyl Citrate (Fentanyl 2ml Vial) 100 mcg STK-MED ONCE .ROUTE ; Start at 14:09; Stop 12/01/16 at 14:10; Status DC Iohexol (Omnipaque 300 Mg/ml) 100 ml STK-MED ONCE .ROUTE ; Start 12/01/16 at 14: 38; Stop 12/01/16 at 14:39; Status DC Heparin Sodium/ Sodium Chloride 1,000 unit 1X ONCE IART Last administered on 15:19; Start 12/01/16 at 14:45; Stop 12/01/16 at 14:51; Status DC Heparin Sodium/ Sodium Chloride 1,000 unit 1X ONCE IART Last administered on 15:20; Start 12/01/16 at 14:45; Stop 12/01/16 at 14:52; Status DC Lidocaine/Sodium Bicarbonate (Buffered Lidocaine 1%) 20 ml 1X ONCE IJ Last administered on 12/01/16 15:18; Start 12/01/16 at 14:45; Stop 12/01/16 at 14:51; Status DC Midazolam HCl (Versed) 5 mg 1X ONCE IV Last administered on 12/01/16 15:17; Start 12/01/16 at 14:45; Stop 12/01/16 at 14:51; Status DC Fentanyl Citrate (Fentanyl 2ml Vial) 100 mcg 1X ONCE IV Last administered on 15:18; Start 12/01/16 at 14:45; Stop 12/01/16 at 14:51; Status DC Iohexol (Omnipaque 300 Mg/ml) 100 ml 1X ONCE IART Last administered on t 15:18; Start 12/01/16 at 14:45; Stop 12/01/16 at 14:51; Status DC Active Scripts Active Reported Iron 18 Mg Tablet 65 Mg PO Tramadol Hcl 50 Mg Tablet 50 Mg PO TID Amlodipine Besylate 10 Mg Tablet 10 Mg PO DAILY Clonidine Hcl 0.1 Mg Tablet 0.1 Mg PO BID Carvedilol 12.5 Mg Tablet 12.5 Mg PO BID Vitals/I & O Vital Sign - Last 24 Hours 11/30/16 11/30/16 11/30/16 11/30/16 19:37 19:45 19:55 20:10 Temp 97.5 97.5 Pulse 111 107 107 109 Resp 20 21 18 21 B/P (MAP) 97/53 (68) 100/56 (71) 94/53 (67) 104/50 (68) Pulse Ox 97 100 99 99 O2 Delivery Room Air Room Air 11/30/16 11/30/16 11/30/16 11/30/16 20:25 20:40 20:55 21:10 Pulse 103 94 96 91 Resp 16 14 12 20 B/P (MAP) 109/57 (74) 87/53 (64) 96/54 (68) 95/57 (70) Pulse Ox 100 98 100 100 11/30/16 11/30/16 11/30/16 11/30/16 21:25 21:40 21:55 22:10 Pulse 91 90 94 100 Resp 20 20 21 21 B/P (MAP) 160/73 (102) 109/54 (72) 109/67 (81) 111/71 (84) Pulse Ox 100 100 100 99 11/30/16 11/30/16 11/30/16 11/30/16 22:25 22:40 23:20 23:30 Temp 97.6 97.6 Pulse 98 99 112 108 Resp 20 21 16 25 B/P (MAP) 120/75 (90) 137/98 (111) 119/85 (96) 134/61 (85) Pulse Ox 100 100 100 99 O2 Delivery Room Air Room Air Room Air 11/30/16 11/30/16 12/01/16 12/01/16 23:45 23:45 00:00 01:00 Pulse 104 106 108 Resp 10 14 13 B/P (MAP) 87/57 (67) 101/54 (70) 108/73 (85) Pulse Ox 98 99 98 O2 Delivery Room Air Room Air Room Air Room Air 12/01/16 12/01/16 12/01/16 12/01/16 01:25 01:40 02:00 03:00 Temp 98.4 98.1 98.4 98.1 Pulse 113 117 122 107 Resp 12 8 22 20 B/P (MAP) 93/55 100/61 85/52 (63) 137/62 (87) Pulse Ox 100 100 O2 Delivery Room Air Room Air 12/01/16 12/01/16 12/01/16 12/01/16 04:00 04:00 05:00 06:00 Temp 99.0 99.0 Pulse 116 118 115 Resp 20 23 30 B/P (MAP) 99/55 (70) 109/56 (73) 91/50 (64) Pulse Ox 100 100 99 O2 Delivery Room Air Room Air Room Air Room Air 12/01/16 12/01/16 12/01/16 12/01/16 06:22 07:00 08:00 08:21 Temp 97.4 97.4 Pulse 118 110 Resp 12 19 20 B/P (MAP) 81/54 (63) 97/54 (68) Pulse Ox 99 99 100 O2 Delivery Room Air Room Air Room Air Room Air 12/01/16 12/01/16 12/01/16 12/01/16 08:31 09:01 09:05 10:00 Pulse 112 97 Resp 19 17 B/P (MAP) 85/54 (64) 116/62 (80) Pulse Ox 100 99 97 O2 Delivery Room Air Room Air Room Air Room Air 12/01/16 12/01/16 12/01/16 12/01/16 10:27 11:16 11:48 12:06 Temp 97 97.8 97.0 97.8 Pulse 96 103 99 Resp 18 20 12 B/P (MAP) 85/50 125/70 (88) 153/93 (113) Pulse Ox 92 100 100 O2 Delivery Nasal Cannula Room Air Room Air Room Air O2 Flow Rate 2 2.0 12/01/16 12/01/16 12/01/1612/01/17 13:13 14:10 14:25 14:25 Temp 98.9 98.6 98.6 98.9 98.6 98.6 Pulse 101 102 96 86 Resp 11 19 20 18 B/P (MAP) 112/66 (81) 150/66 141/74 128/73 Pulse Ox 100 O2 Delivery Room Air 12/01/16 12/01/16 12/01/16 15:10 15:18 15:27 Temp 98.4 98.4 Pulse 92 92 Resp 19 17 16 B/P (MAP) 147/79 Pulse Ox 100 99 O2 Delivery Room Air Room Air Intake and Output 11/30/16 11/30/16 12/01/16 15:00 23:00 07:00 Intake Total 1462 ml Balance 1462 ml Assessment UGI bleed from intragastric lesion, nature unclear. Suspect vascular lesion. Plan of Care: Continue current Tx, Mgmt Plan of Care Note Keep NPO save ice chips. Monitor for re-bleed. If rebleeds, call IR. Would obtain surgical opinion for standby. If remains OK over the weekend, may consider second-look EGD Sunday. Dr. Nazanin carrington. CHRISTINE MODI MD Dec 01, 2016 15:54
[2016-12-01 15:57] LABS: HEMATOCRIT 29.8 % (39.0-53.0); HEMOGLOBIN 9.8 g/dL (13.0-17.5); RED BLOOD COUNT 3.36 x10^6/uL (4.30-5.70); RED CELL DISTRIBUTION WIDTH 17.2 % (11.5-14.5); WHITE BLOOD COUNT 18.8 x10^3/uL (4.0-11.0)
[2016-12-01] MEDS ORDERED: LIDOCAINE 1% PF 5 ML VIAL. ONE (16:47)
[2016-12-01] MEDS ORDERED: PROPOFOL 40 ML IV ONE (16:47)
--- NOTE | 2016-12-01 16:55 | RAD ---
Mesenteric angiography 12/01/2016 Indication: Upper gastrointestinal hemorrhage, localized to the stomach by endoscopy Discussion: The risks and benefits of the procedure were discussed the patient. Informed consent was obtained. The patient was brought to the fluoroscopy suite and placed in the supine position. A timeout procedure was performed. The right groin was prepped and draped using maximum sterile barrier technique. Right common femoral artery was accessed using micropuncture technique. Fluoroscopic and ultrasound guidance was used. Reference images were saved in the medical record. A 5 Norwegian vascular sheath was placed. A Simio Omni catheter was advanced into the celiac artery. Multiple angiograms were obtained. 2 Gastric clips are noted, one free-floating, the other in the body of the stomach. Using a series of wires and catheters selective angiography of the gastroduodenal artery, splenic artery, and the common trunk supplying the left hepatic artery and multiple small left gastric arteries was performed. No evidence of active extravasation of contrast or active bleeding was appreciated. No lesion readily identifiable as a source of bleeding was identified. The superior mesenteric artery was also selected. Angiography demonstrates no gross abnormalities. The right common femoral artery was heavily calcified. Manual pressure was held to achieve hemostasis. A Sterile dressing was applied. Fluoroscopy time: 16.9 minutes Dose area product: 815 The procedure was performed under conscious sedation including continuous cardiopulmonary monitoring via dedicated sedation nurse. Sedation time was approximately 1 hour. Impression: No evidence of active gastrointestinal hemorrhage is identified.
--- NOTE | 2016-12-01 17:11 | PDOC ---
Provider Note Provider Note IR NOTE Mesenteric angiography performed for upper GI bleed. No active bleeding. Patient has variant celiac anatomy making angiography and possible intervention more challenging. Endoscopy earlier today demonstrated general area of bleeding in the body of the stomach with active bleeding at that time, and signs of shock. No endoscopic intervention was performed as bleeding obscured visualization. He is now hemodynamically stable and his Hb has responded to transfusion. He does not appear to be actively bleeding at current. If he rebleeds, or shows signs of oozing, repeat endoscopy may be needed. Alternatively a CTA may be helpful. This could help localize bleeding source. ROSARIO ADKINS MD Dec 01, 2016 17:11
[2016-12-01 22:22] LABS: HEMATOCRIT 26.5 % (39.0-53.0); HEMOGLOBIN 8.8 g/dL (13.0-17.5); RED BLOOD COUNT 3.12 x10^6/uL (4.30-5.70); RED CELL DISTRIBUTION WIDTH 17.5 % (11.5-14.5); WHITE BLOOD COUNT 20.7 x10^3/uL (4.0-11.0)
[2016-12-02] VITALS (26 sets, daily range): BP systolic 105–153; BP diastolic 48–89
[2016-12-02 04:40] LABS: BASO # 0.1 x10^3/uL (0.0-0.2); BASO % 1 % (0-3); EOS % 1 % (0-3); HEMATOCRIT 23.1 % (39.0-53.0); HEMOGLOBIN 7.7 g/dL (13.0-17.5); LYMPH # 2.4 x10^3/uL (1.0-4.8); LYMPH % 12 % (24-48); MEAN CORPUSCULAR HEMOGLOBIN 29 pg (25-35); MEAN CORPUSCULAR HGB CONC 33 g/dL (31-37); MEAN CORPUSCULAR VOLUME 86 fL (79-100); MONO % 8 % (0-9); NEUT % 78 % (31-73); PLATELET COUNT 105 x10^3/uL (140-400); RED BLOOD COUNT 2.68 x10^6/uL (4.30-5.70); RED CELL DISTRIBUTION WIDTH 17.1 % (11.5-14.5); WHITE BLOOD COUNT 19.3 x10^3/uL (4.0-11.0)
[2016-12-02 05:11] LABS: ALBUMIN 2.1 g/dL (3.4-5.0); ALBUMIN/GLOBULIN RATIO 0.7 (1.0-1.7); CALCIUM 6.3 mg/dL (8.5-10.1); GFR 5.8; POTASSIUM 5.2 mmol/L (3.5-5.1); TOTAL BILIRUBIN 0.2 mg/dL (0.2-1.0)
[2016-12-02] MEDS: PANTOPRAZOLE SODIUM IV 80 MG in IV NORMAL SALINE 100ML 100 ML IV SCH ×2 (08:31→19:36)
[2016-12-02] MEDS ORDERED: IV NORMAL SALINE 1000ML BAG 1,000 ML IV PRN ×2 (09:54)
[2016-12-02] MEDS ORDERED: PHYTONADIONE (VIT K1) IV 10 MG in IV NORMAL SALINE 50ML 50 ML IV ONE (10:00)
[2016-12-02] MEDS ORDERED: DIALYSIS PATIENT. MC PRN ×2 (10:00)
--- NOTE | 2016-12-02 10:40 | PDOC ---
PROGRESS NOTES Chief Complaint Chief Complaint ACute blood loss anemia GI bleed, Upper, PPI IV BID IV fluid 3 U prbc, then recheck X2 today htn,, currently hypotensive, fluid bolus PRN< hold home BP meds ESRD, renal to follow, will be due 12/02 admitted to ICU History of Present Illness History of Present Illness awake and alert, sitting up today, no new complaint is a few pounds over dry weight, blood and NS given mult doses yesterday HD today in ICU, per able to tolerative with BP, sBP 140 this AM cont NPO with ice chips, add biotene Vitals Vitals Vital Signs Date Time Temp Pulse Resp B/P (MAP) Pulse Ox O2 Delivery O2 Flow Rate FiO2 12/02/16 10:02 97 133/71 (91) 100 Nasal Cannula 2.0 12/02/16 07:23 97.6 97.6 12/02/16 05:08 18 Physical Exam General: Alert, Cooperative, mild distress, moderate distress Abdomen: Normal bowel sounds Labs LABS Laboratory Tests Test 12/01/16 15:50 12/01/16 21:45 12/02/16 04:00 White Blood Count 18.8 x10^3/uL (4.0-11.0) 20.7 x10^3/uL (4.0-11.0) 19.3 x10^3/uL (4.0-11.0) Red Blood Count 3.36 x10^6/uL (4.30-5.70) 3.12 x10^6/uL (4.30-5.70) 2.68 x10^6/uL (4.30-5.70) Hemoglobin 9.8 g/dL (13.0-17.5) 8.8 g/dL (13.0-17.5) 7.7 g/dL (13.0-17.5) Hematocrit 29.8 % (39.0-53.0) 26.5 % (39.0-53.0) 23.1 % (39.0-53.0) Mean Corpuscular Volume 89 fL (79-100) 85 fL (79-100) 86 fL (79-100) Mean Corpuscular Hemoglobin 29 pg (25-35) 28 pg (25-35) 29 pg (25-35) Mean Corpuscular Hemoglobin Concent 33 g/dL (31-37) 33 g/dL (31-37) 33 g/dL (31-37) Red Cell Distribution Width 17.2 % (11.5-14.5) 17.5 % (11.5-14.5) 17.1 % (11.5-14.5) Platelet Count 100 x10^3/uL (140-400) 115 x10^3/uL (140-400) 105 x10^3/uL (140-400) Neutrophils (%) (Auto) 78 % (31-73) Lymphocytes (%) (Auto) 12 % (24-48) Monocytes (%) (Auto) 8 % (0-9) Eosinophils (%) (Auto) 1 % (0-3) Basophils (%) (Auto) 1 % (0-3) Neutrophils # (Auto) 15.1 x10^3uL (1.8-7.7) Lymphocytes # (Auto) 2.4 x10^3/uL (1.0-4.8) Monocytes # (Auto) 1.5 x10^3/uL (0.0-1.1) Eosinophils # (Auto) 0.2 x10^3/uL (0.0-0.7) Basophils # (Auto) 0.1 x10^3/uL (0.0-0.2) Sodium Level 140 mmol/L (136-145) Potassium Level 5.2 mmol/L (3.5-5.1) Chloride Level 107 mmol/L (98-107) Carbon Dioxide Level 23 mmol/L (21-32) Anion Gap 10 (6-14) Blood Urea Nitrogen 100 mg/dL (8-26) Creatinine 11.0 mg/dL (0.7-1.3) Estimated GFR (Cockcroft-Gault) 5.8 BUN/Creatinine Ratio 9 (6-20) Glucose Level 117 mg/dL (70-99) Calcium Level 6.3 mg/dL (8.5-10.1) Total Bilirubin 0.2 mg/dL (0.2-1.0) Aspartate Amino Transf (AST/SGOT) 11 U/L (15-37) Alanine Aminotransferase (ALT/SGPT) 12 U/L (16-63) Alkaline Phosphatase 32 U/L (46-116) Total Protein 5.0 g/dL (6.4-8.2) Albumin 2.1 g/dL (3.4-5.0) Albumin/Globulin Ratio 0.7 (1.0-1.7) Review of Systems Review of Systems thirsty, dry mouth no pain no stool 12 hours, no bloody sensatino in mouth, no vomitus he overall feels much better Assessment and Plan Assessmemt and Plan 1 u pRBC ordered, cont to follow, bleeding seems to have slowed but continues , cont ICu care, Problems: Comment Review of Relevant I have reviewed the following items tomas (where applicable) has been applied. Labs Laboratory Tests Test 11/30/16 19:43 11/30/16 19:56 11/30/16 23:25 12/01/16 00:30 White Blood Count 20.8 x10^3/uL (4.0-11.0) 19.9 x10^3/uL (4.0-11.0) Red Blood Count 3.05 x10^6/uL (4.30-5.70) 2.63 x10^6/uL (4.30-5.70) Hemoglobin 7.8 g/dL (13.0-17.5) 6.7 g/dL (13.0-17.5) Hematocrit 24.4 % (39.0-53.0) 20.9 % (39.0-53.0) Mean Corpuscular Volume 80 fL (79-100) 79 fL (79-100) Mean Corpuscular Hemoglobin 26 pg (25-35) 26 pg (25-35) Mean Corpuscular Hemoglobin Concent 32 g/dL (31-37) 32 g/dL (31-37) Red Cell Distribution Width 19.2 % (11.5-14.5) 19.4 % (11.5-14.5) Platelet Count 234 x10^3/uL (140-400) 201 x10^3/uL (140-400) Neutrophils (%) (Auto) 84 % (31-73) Lymphocytes (%) (Auto) 10 % (24-48) Monocytes (%) (Auto) 5 % (0-9) Eosinophils (%) (Auto) 0 % (0-3) Basophils (%) (Auto) 1 % (0-3) Neutrophils # (Auto) 17.5 x10^3uL (1.8-7.7) Lymphocytes # (Auto) 2.0 x10^3/uL (1.0-4.8) Monocytes # (Auto) 1.1 x10^3/uL (0.0-1.1) Eosinophils # (Auto) 0.0 x10^3/uL (0.0-0.7) Basophils # (Auto) 0.1 x10^3/uL (0.0-0.2) Segmented Neutrophils % 87 % (35-66) Lymphocytes % 8 % (24-48) Monocytes % 4 % (0-10) Basophils % 1 % (0-3) Platelet Estimate Adequate (ADEQUATE) Polychromasia Slight Target Cells Occ Ovalocytes Occ Stomatocytes Occ Prothrombin Time 15.0 SEC (11.7-14.0) Prothromb Time International Ratio 1.3 (0.8-1.1) Activated Partial Thromboplast Time 31 SEC (24-38) Sodium Level 141 mmol/L (136-145) Potassium Level 4.1 mmol/L (3.5-5.1) Chloride Level 98 mmol/L (98-107) Carbon Dioxide Level 29 mmol/L (21-32) Anion Gap 14 (6-14) Blood Urea Nitrogen 66 mg/dL (8-26) Creatinine 9.2 mg/dL (0.7-1.3) Estimated GFR (Cockcroft-Gault) 7.1 BUN/Creatinine Ratio 7 (6-20) Glucose Level 235 mg/dL (70-99) Calcium Level 8.0 mg/dL (8.5-10.1) Total Bilirubin 0.3 mg/dL (0.2-1.0) Aspartate Amino Transf (AST/SGOT) 10 U/L (15-37) Alanine Aminotransferase (ALT/SGPT) 19 U/L (16-63) Alkaline Phosphatase 49 U/L (46-116) Total Protein 7.3 g/dL (6.4-8.2) Albumin 3.1 g/dL (3.4-5.0) Albumin/Globulin Ratio 0.7 (1.0-1.7) Lipase 231 U/L (73-393) Ethyl Alcohol Level < 10 mg/dL (0-10) Glucose (Fingerstick) 248 mg/dL (70-99) Nasal Screen MRSA (PCR) Negative (Negative) Test 12/01/16 08:35 12/01/16 15:50 12/01/16 21:45 12/02/16 04:00 White Blood Count 19.0 x10^3/uL (4.0-11.0) 18.8 x10^3/uL (4.0-11.0) 20.7 x10^3/uL (4.0-11.0) 19.3 x10^3/uL (4.0-11.0) Red Blood Count 2.22 x10^6/uL (4.30-5.70) 3.36 x10^6/uL (4.30-5.70) 3.12 x10^6/uL (4.30-5.70) 2.68 x10^6/uL (4.30-5.70) Hemoglobin 5.8 g/dL (13.0-17.5) 9.8 g/dL (13.0-17.5) 8.8 g/dL (13.0-17.5) 7.7 g/dL (13.0-17.5) Hematocrit 17.7 % (39.0-53.0) 29.8 % (39.0-53.0) 26.5 % (39.0-53.0) 23.1 % (39.0-53.0) Mean Corpuscular Volume 80 fL (79-100) 89 fL (79-100) 85 fL (79-100) 86 fL ( 79-100) Mean Corpuscular Hemoglobin 26 pg (25-35) 29 pg (25-35) 28 pg (25-35) 29 pg ( 25-35) Mean Corpuscular Hemoglobin Concent 33 g/dL (31-37) 33 g/dL (31-37) 33 g/dL (31-37) 33 g/dL (31-37) Red Cell Distribution Width 17.9 % (11.5-14.5) 17.2 % (11.5-14.5) 17.5 % (11.5-14.5) 17.1 % (11.5-14.5) Platelet Count 177 x10^3/uL (140-400) 100 x10^3/uL (140-400) 115 x10^3/uL (140-400) 105 x10^3/uL (140-400) Neutrophils (%) (Auto) 80 % (31-73) 78 % (31-73) Lymphocytes (%) (Auto) 13 % (24-48) 12 % (24-48) Monocytes (%) (Auto) 7 % (0-9) 8 % (0-9) Eosinophils (%) (Auto) 0 % (0-3) 1 % (0-3) Basophils (%) (Auto) 0 % (0-3) 1 % (0-3) Neutrophils # (Auto) 15.1 x10^3uL (1.8-7.7) 15.1 x10^3uL (1.8-7.7) Lymphocytes # (Auto) 2.5 x10^3/uL (1.0-4.8) 2.4 x10^3/uL (1.0-4.8) Monocytes # (Auto) 1.3 x10^3/uL (0.0-1.1) 1.5 x10^3/uL (0.0-1.1) Eosinophils # (Auto) 0.0 x10^3/uL (0.0-0.7) 0.2 x10^3/uL (0.0-0.7) Basophils # (Auto) 0.0 x10^3/uL (0.0-0.2) 0.1 x10^3/uL (0.0-0.2) Sodium Level 142 mmol/L (136-145) 140 mmol/L (136-145) Potassium Level 4.6 mmol/L (3.5-5.1) 5.2 mmol/L (3.5-5.1) Chloride Level 103 mmol/L (98-107) 107 mmol/L (98-107) Carbon Dioxide Level 24 mmol/L (21-32) 23 mmol/L (21-32) Anion Gap 15 (6-14) 10 (6-14) Blood Urea Nitrogen 82 mg/dL (8-26) 100 mg/dL (8-26) Creatinine 10.0 mg/dL (0.7-1.3) 11.0 mg/dL (0.7-1.3) Estimated GFR (Cockcroft-Gault) 6.4 5.8 Glucose Level 194 mg/dL (70-99) 117 mg/dL (70-99) Calcium Level 7.3 mg/dL (8.5-10.1) 6.3 mg/dL (8.5-10.1) BUN/Creatinine Ratio 9 (6-20) Total Bilirubin 0.2 mg/dL (0.2-1.0) Aspartate Amino Transf (AST/SGOT) 11 U/L (15-37) Alanine Aminotransferase (ALT/SGPT) 12 U/L (16-63) Alkaline Phosphatase 32 U/L (46-116) Total Protein 5.0 g/dL (6.4-8.2) Albumin 2.1 g/dL (3.4-5.0) Albumin/Globulin Ratio 0.7 (1.0-1.7) Laboratory Tests Test 12/01/16 15:50 12/01/16 21:45 12/02/16 04:00 White Blood Count 18.8 x10^3/uL (4.0-11.0) 20.7 x10^3/uL (4.0-11.0) 19.3 x10^3/uL (4.0-11.0) Red Blood Count 3.36 x10^6/uL (4.30-5.70) 3.12 x10^6/uL (4.30-5.70) 2.68 x10^6/uL (4.30-5.70) Hemoglobin 9.8 g/dL (13.0-17.5) 8.8 g/dL (13.0-17.5) 7.7 g/dL (13.0-17.5) Hematocrit 29.8 % (39.0-53.0) 26.5 % (39.0-53.0) 23.1 % (39.0-53.0) Mean Corpuscular Volume 89 fL (79-100) 85 fL (79-100) 86 fL (79-100) Mean Corpuscular Hemoglobin 29 pg (25-35) 28 pg (25-35) 29 pg (25-35) Mean Corpuscular Hemoglobin Concent 33 g/dL (31-37) 33 g/dL (31-37) 33 g/dL (31-37) Red Cell Distribution Width 17.2 % (11.5-14.5) 17.5 % (11.5-14.5) 17.1 % (11.5-14.5) Platelet Count 100 x10^3/uL (140-400) 115 x10^3/uL (140-400) 105 x10^3/uL (140-400) Neutrophils (%) (Auto) 78 % (31-73) Lymphocytes (%) (Auto) 12 % (24-48) Monocytes (%) (Auto) 8 % (0-9) Eosinophils (%) (Auto) 1 % (0-3) Basophils (%) (Auto) 1 % (0-3) Neutrophils # (Auto) 15.1 x10^3uL (1.8-7.7) Lymphocytes # (Auto) 2.4 x10^3/uL (1.0-4.8) Monocytes # (Auto) 1.5 x10^3/uL (0.0-1.1) Eosinophils # (Auto) 0.2 x10^3/uL (0.0-0.7) Basophils # (Auto) 0.1 x10^3/uL (0.0-0.2) Sodium Level 140 mmol/L (136-145) Potassium Level 5.2 mmol/L (3.5-5.1) Chloride Level 107 mmol/L (98-107) Carbon Dioxide Level 23 mmol/L (21-32) Anion Gap 10 (6-14) Blood Urea Nitrogen 100 mg/dL (8-26) Creatinine 11.0 mg/dL (0.7-1.3) Estimated GFR (Cockcroft-Gault) 5.8 BUN/Creatinine Ratio 9 (6-20) Glucose Level 117 mg/dL (70-99) Calcium Level 6.3 mg/dL (8.5-10.1) Total Bilirubin 0.2 mg/dL (0.2-1.0) Aspartate Amino Transf (AST/SGOT) 11 U/L (15-37) Alanine Aminotransferase (ALT/SGPT) 12 U/L (16-63) Alkaline Phosphatase 32 U/L (46-116) Total Protein 5.0 g/dL (6.4-8.2) Albumin 2.1 g/dL (3.4-5.0) Albumin/Globulin Ratio 0.7 (1.0-1.7) Medications Current Medications Sodium Chloride 1,000 ml @ 1,000 mls/hr 1X ONCE IV Last administered on 20:06; Start 11/30/16 at 20:00; Stop 11/30/16 at 20:59; Status DC Pantoprazole Sodium (Protonix Vial) 80 mg 1X ONCE IVP Last administered on 11/30 20:05; Start 11/30/16 at 20:00; Stop 11/30/16 at 20:01; Status DC Pantoprazole Sodium 80 mg/ Sodium Chloride 100 ml @ 10 mls/hr Q10H IV Last administered on 12/02/16 08:31; Start 11/30/16 at 20:00 Ondansetron HCl (Zofran) 8 mg 1X ONCE IV Last administered on 11/30/16 20:15; Start 11/30/16 at 20:30; Stop 11/30/16 at 20:31; Status DC Fentanyl Citrate (Fentanyl 2ml Vial) 50 mcg 1X ONCE IV Last administered on 20:16; Start 11/30/16 at 20:30; Stop 11/30/16 at 20:31; Status DC Iohexol (Omnipaque 300 Mg/ml) 75 ml 1X ONCE IV Last administered on 11/30/16 21:16; Start 11/30/16 at 21:00; Stop 11/30/16 at 21:01; Status DC Info (Do NOT chart on this entry -- for MONITORING) 1 each PRN DAILY PRN MC SEE COMMENTS; Start 11/30/16 at 20:45; Stop 12/02/16 at 20:44 Metoclopramide HCl (Reglan) 10 mg 1X ONCE IV Last administered on 11/30/16 22: 46; Start 11/30/16 at 21:30; Stop 11/30/16 at 21:31; Status DC Ondansetron HCl (Zofran) 4 mg PRN Q8HRS PRN IV NAUSEA/VOMITING; Start 11/30/16 at 21:45; Stop 12/01/16 at 21:44; Status DC Sodium Chloride 1,000 ml @ 150 mls/hr Q6H40M IV Last administered on 12/01/16 05:44; Start 11/30/16 at 22:00; Stop 12/01/16 at 21:59; Status DC Pneumococcal Polyvalent Vaccine (Do NOT chart on this placeholder) 1 each 1X ONCE MC ; Start 12/01/16 at 09:00; Stop 12/01/16 at 09:01; Status UNV Pneumococcal Polyvalent Vaccine (Pneumovax 23) 0.5 ml ONCE ONCE VAX IM ; Start 12/01/16 at 09:00; Stop 12/01/16 at 09:01; Status DC Norepinephrine Bitartrate 250 ml @ As Directed STK-MED ONCE IV ; Start 12/01/16 at 03:40; Stop 12/01/16 at 03:41; Status DC Norepinephrine Bitartrate 250 ml @ 0 mls/hr CONT PRN IV SEE I/O RECORD Last administered on 12/01/16 04:32; Start 12/01/16 at 04:15 Morphine Sulfate 2 mg PRN Q2HR PRN IV SEVERE PAIN Last administered on 08:31; Start 12/01/16 at 06:15 Epinephrine HCl (EPINEPHrine SYRINGE) 1 mg STK-MED ONCE .ROUTE ; Start 12/01/16 at 10:42; Stop 12/01/16 at 10:43; Status DC Iohexol (Omnipaque 300 Mg/ml) 100 ml STK-MED ONCE .ROUTE ; Start 12/01/16 at 12: 33; Stop 12/01/16 at 12:34; Status DC Lidocaine/Sodium Bicarbonate (Buffered Lidocaine 1%) 20 ml STK-MED ONCE IJ ; Start 12/01/16 at 12:34; Stop 12/01/16 at 12:35; Status DC Heparin Sodium/ Sodium Chloride 1,500 ml @ As Directed STK-MED ONCE .ROUTE ; Start 12/01/16 at 12:34; Stop 12/01/16 at 12:35; Status DC Midazolam HCl (Versed) 5 mg STK-MED ONCE .ROUTE ; Start 12/01/16 at 14:09; Stop 12/01/16 at 14:10; Status DC Fentanyl Citrate (Fentanyl 2ml Vial) 100 mcg STK-MED ONCE .ROUTE ; Start at 14:09; Stop 12/01/16 at 14:10; Status DC Iohexol (Omnipaque 300 Mg/ml) 100 ml STK-MED ONCE .ROUTE ; Start 12/01/16 at 14: 38; Stop 12/01/16 at 14:39; Status DC Heparin Sodium/ Sodium Chloride 1,000 unit 1X ONCE IART Last administered on 15:19; Start 12/01/16 at 14:45; Stop 12/01/16 at 14:51; Status DC Heparin Sodium/ Sodium Chloride 1,000 unit 1X ONCE IART Last administered on 15:20; Start 12/01/16 at 14:45; Stop 12/01/16 at 14:52; Status DC Lidocaine/Sodium Bicarbonate (Buffered Lidocaine 1%) 20 ml 1X ONCE IJ Last administered on 12/01/16 15:18; Start 12/01/16 at 14:45; Stop 12/01/16 at 14:51; Status DC Midazolam HCl (Versed) 5 mg 1X ONCE IV Last administered on 12/01/16 15:17; Start 12/01/16 at 14:45; Stop 12/01/16 at 14:51; Status DC Fentanyl Citrate (Fentanyl 2ml Vial) 100 mcg 1X ONCE IV Last administered on 15:18; Start 12/01/16 at 14:45; Stop 12/01/16 at 14:51; Status DC Iohexol (Omnipaque 300 Mg/ml) 100 ml 1X ONCE IART Last administered on 15:18; Start 12/01/16 at 14:45; Stop 12/01/16 at 14:51; Status DC Propofol 40 ml @ As Directed STK-MED ONCE IV ; Start 12/01/16 at 16:47; Stop 12/01 at 16:48; Status DC Lidocaine HCl (Xylocaine-Mpf 1% Vial) 5 ml STK-MED ONCE .ROUTE ; Start 12/01/16 at 16:47; Stop 12/01/16 at 16:48; Status DC Phytonadione 10 mg/Sodium Chloride 51 ml @ 102 mls/hr 1X ONCE IV ; Start at 10:00; Stop 12/02/16 at 10:29; Status DC Sodium Chloride 1,000 ml @ 1,000 mls/hr Q1H PRN IV hypotension; Start 12/02/16 at 09:54; Stop 12/02/16 at 15:53 Sodium Chloride 1,000 ml @ 400 mls/hr Q2H30M PRN IV PATENCY; Start 12/02/16 at 09:54; Stop 12/02/16 at 21:53 Info (PHARMACY MONITORING -- do not chart) 1 each PRN DAILY PRN MC SEE COMMENTS ; Start 12/02/16 at 10:00; Status UNV Info (PHARMACY MONITORING -- do not chart) 1 each PRN DAILY PRN MC SEE COMMENTS ; Start 12/02/16 at 10:00 Active Scripts Active Reported Iron 18 Mg Tablet 65 Mg PO Tramadol Hcl 50 Mg Tablet 50 Mg PO TID Amlodipine Besylate 10 Mg Tablet 10 Mg PO DAILY Clonidine Hcl 0.1 Mg Tablet 0.1 Mg PO BID Carvedilol 12.5 Mg Tablet 12.5 Mg PO BID Vitals/I & O Vital Sign - Last 24 Hours 12/01/16 12/01/16 12/01/16 12/01/16 11:16 11:48 12:06 13:13 Temp 97.8 97.8 Pulse 103 99 101 Resp 20 12 11 B/P (MAP) 125/70 (88) 153/93 (113) 112/66 (81) Pulse Ox 100 100 100 O2 Delivery Room Air Room Air Room Air Room Air O2 Flow Rate 2.0 12/01/16 12/01/16 12/01/16 12/01/16 14:10 14:25 14:25 15:10 Temp 98.9 98.6 98.6 98.4 98.9 98.6 98.6 98.4 Pulse 102 96 86 92 Resp 19 20 18 19 B/P (MAP) 150/66 141/74 128/73 147/79 12/01/16 12/01/16 12/01/16 12/01/16 15:18 15:27 15:45 15:50 Temp 98.6 98.6 98.6 98.6 Pulse 92 96 96 Resp 17 16 12 12 B/P (MAP) 152/99 (116) 152/99 Pulse Ox 100 99 100 O2 Delivery Room Air Room Air Room Air 12/01/16 12/01/16 12/01/16 12/01/16 15:56 16:00 16:17 16:30 Pulse 94 96 94 Resp 14 20 16 B/P (MAP) 171/88 (115) 162/94 (116) 163/88 (113) Pulse Ox 100 100 100 O2 Delivery Room Air Room Air Room Air Room Air O2 Flow Rate 2.0 12/01/16 12/01/16 12/01/16 12/01/16 16:45 17:00 17:30 18:00 Pulse 94 94 98 98 Resp 10 11 13 23 B/P (MAP) 164/85 (111) 166/86 (112) 170/91 (117) 157/86 (109) Pulse Ox 100 100 100 99 O2 Delivery Room Air Room Air Room Air Room Air 12/01/16 12/01/16 12/01/16 12/01/16 19:00 20:00 20:00 20:55 Temp 98.9 98.9 Pulse 96 99 Resp 18 20 16 B/P (MAP) 148/73 (98) 151/80 (103) Pulse Ox 97 100 87 O2 Delivery Room Air Room Air Room Air Room Air 12/01/16 12/01/16 12/01/16 12/01/16 21:00 22:00 22:53 23:59 Pulse 99 101 97 Resp 18 16 14 B/P (MAP) 133/74 (93) 134/72 (92) 107/52 (70) Pulse Ox 100 100 100 O2 Delivery Room Air Nasal Cannula Nasal Cannula Nasal Cannula O2 Flow Rate 2.0 2.0 2.0 12/02/16 12/02/16 12/02/16 12/02/16 00:01 01:00 02:00 03:00 Pulse 94 96 95 91 Resp 18 20 16 18 B/P (MAP) 150/88 (108) 114/56 (75) 113/48 (69) 141/70 (93) Pulse Ox 99 99 96 95 O2 Delivery Nasal Cannula Nasal Cannula Nasal Cannula Nasal Cannula O2 Flow Rate 2.0 2.0 2.0 2.0 12/02/16 12/02/16 12/02/16 12/02/16 04:00 04:06 05:08 06:00 Temp 98.2 98.2 Pulse 101 90 94 Resp 16 18 B/P (MAP) 119/71 (87) 136/78 (97) 152/67 (95) Pulse Ox 99 100 100 O2 Delivery Nasal Cannula Nasal Cannula Nasal Cannula Nasal Cannula O2 Flow Rate 2.0 2.0 2.0 2.0 12/02/16 12/02/16 12/02/16 12/02/16 07:07 07:23 07:30 08:00 Temp 97.6 97.6 Pulse 96 83 B/P (MAP) 119/72 (88) 135/75 (95) Pulse Ox 99 97 O2 Delivery Nasal Cannula Nasal Cannula Nasal Cannula O2 Flow Rate 2.0 2.0 2.0 12/02/16 12/02/16 09:00 10:02 Pulse 86 97 B/P (MAP) 148/76 (100) 133/71 (91) Pulse Ox 100 100 O2 Delivery Nasal Cannula Nasal Cannula O2 Flow Rate 2.0 2.0 Intake and Output 12/01/16 12/01/16 12/02/16 15:00 23:00 07:00 Intake Total 325 ml 1720 ml 0 ml Output Total 250 ml 300 ml Balance 325 ml 1470 ml -300 ml SARAH CASTELLON MD Dec 02, 2016 10:40
[2016-12-02] MEDS ORDERED: SALIVA STIMULANT AGENT 44ML SPRAY BOTTLE. PO PRN (10:45)
--- NOTE | 2016-12-02 12:39 | PDOC ---
G I PROGRESS NOTE Reason for Follow-up Hematemesis/acute blood loss anemia Subjective No further bleeding/dialysis in progress Physical Exam Lungs clear CV S1 S2 ABD +BS, soft, nontender Review of Relevant I have reviewed the following items tomas (where applicable) has been applied. Labs Laboratory Tests Test 11/30/16 19:43 11/30/16 19:56 11/30/16 23:25 12/01/16 00:30 White Blood Count 20.8 x10^3/uL (4.0-11.0) 19.9 x10^3/uL (4.0-11.0) Red Blood Count 3.05 x10^6/uL (4.30-5.70) 2.63 x10^6/uL (4.30-5.70) Hemoglobin 7.8 g/dL (13.0-17.5) 6.7 g/dL (13.0-17.5) Hematocrit 24.4 % (39.0-53.0) 20.9 % (39.0-53.0) Mean Corpuscular Volume 80 fL (79-100) 79 fL (79-100) Mean Corpuscular Hemoglobin 26 pg (25-35) 26 pg (25-35) Mean Corpuscular Hemoglobin Concent 32 g/dL (31-37) 32 g/dL (31-37) Red Cell Distribution Width 19.2 % (11.5-14.5) 19.4 % (11.5-14.5) Platelet Count 234 x10^3/uL (140-400) 201 x10^3/uL (140-400) Neutrophils (%) (Auto) 84 % (31-73) Lymphocytes (%) (Auto) 10 % (24-48) Monocytes (%) (Auto) 5 % (0-9) Eosinophils (%) (Auto) 0 % (0-3) Basophils (%) (Auto) 1 % (0-3) Neutrophils # (Auto) 17.5 x10^3uL (1.8-7.7) Lymphocytes # (Auto) 2.0 x10^3/uL (1.0-4.8) Monocytes # (Auto) 1.1 x10^3/uL (0.0-1.1) Eosinophils # (Auto) 0.0 x10^3/uL (0.0-0.7) Basophils # (Auto) 0.1 x10^3/uL (0.0-0.2) Segmented Neutrophils % 87 % (35-66) Lymphocytes % 8 % (24-48) Monocytes % 4 % (0-10) Basophils % 1 % (0-3) Platelet Estimate Adequate (ADEQUATE) Polychromasia Slight Target Cells Occ Ovalocytes Occ Stomatocytes Occ Prothrombin Time 15.0 SEC (11.7-14.0) Prothromb Time International Ratio 1.3 (0.8-1.1) Activated Partial Thromboplast Time 31 SEC (24-38) Sodium Level 141 mmol/L (136-145) Potassium Level 4.1 mmol/L (3.5-5.1) Chloride Level 98 mmol/L (98-107) Carbon Dioxide Level 29 mmol/L (21-32) Anion Gap 14 (6-14) Blood Urea Nitrogen 66 mg/dL (8-26) Creatinine 9.2 mg/dL (0.7-1.3) Estimated GFR (Cockcroft-Gault) 7.1 BUN/Creatinine Ratio 7 (6-20) Glucose Level 235 mg/dL (70-99) Calcium Level 8.0 mg/dL (8.5-10.1) Total Bilirubin 0.3 mg/dL (0.2-1.0) Aspartate Amino Transf (AST/SGOT) 10 U/L (15-37) Alanine Aminotransferase (ALT/SGPT) 19 U/L (16-63) Alkaline Phosphatase 49 U/L (46-116) Total Protein 7.3 g/dL (6.4-8.2) Albumin 3.1 g/dL (3.4-5.0) Albumin/Globulin Ratio 0.7 (1.0-1.7) Lipase 231 U/L (73-393) Ethyl Alcohol Level < 10 mg/dL (0-10) Glucose (Fingerstick) 248 mg/dL (70-99) Nasal Screen MRSA (PCR) Negative (Negative) Test 12/01/16 08:35 12/01/16 15:50 12/01/16 21:45 12/02/16 04:00 White Blood Count 19.0 x10^3/uL (4.0-11.0) 18.8 x10^3/uL (4.0-11.0) 20.7 x10^3/uL (4.0-11.0) 19.3 x10^3/uL (4.0-11.0) Red Blood Count 2.22 x10^6/uL (4.30-5.70) 3.36 x10^6/uL (4.30-5.70) 3.12 x10^6/uL (4.30-5.70) 2.68 x10^6/uL (4.30-5.70) Hemoglobin 5.8 g/dL (13.0-17.5) 9.8 g/dL (13.0-17.5) 8.8 g/dL (13.0-17.5) 7.7 g/dL (13.0-17.5) Hematocrit 17.7 % (39.0-53.0) 29.8 % (39.0-53.0) 26.5 % (39.0-53.0) 23.1 % (39.0-53.0) Mean Corpuscular Volume 80 fL (79-100) 89 fL (79-100) 85 fL (79-100) 86 fL ( 79-100) Mean Corpuscular Hemoglobin 26 pg (25-35) 29 pg (25-35) 28 pg (25-35) 29 pg ( 25-35) Mean Corpuscular Hemoglobin Concent 33 g/dL (31-37) 33 g/dL (31-37) 33 g/dL (31-37) 33 g/dL (31-37) Red Cell Distribution Width 17.9 % (11.5-14.5) 17.2 % (11.5-14.5) 17.5 % (11.5-14.5) 17.1 % (11.5-14.5) Platelet Count 177 x10^3/uL (140-400) 100 x10^3/uL (140-400) 115 x10^3/uL (140-400) 105 x10^3/uL (140-400) Neutrophils (%) (Auto) 80 % (31-73) 78 % (31-73) Lymphocytes (%) (Auto) 13 % (24-48) 12 % (24-48) Monocytes (%) (Auto) 7 % (0-9) 8 % (0-9) Eosinophils (%) (Auto) 0 % (0-3) 1 % (0-3) Basophils (%) (Auto) 0 % (0-3) 1 % (0-3) Neutrophils # (Auto) 15.1 x10^3uL (1.8-7.7) 15.1 x10^3uL (1.8-7.7) Lymphocytes # (Auto) 2.5 x10^3/uL (1.0-4.8) 2.4 x10^3/uL (1.0-4.8) Monocytes # (Auto) 1.3 x10^3/uL (0.0-1.1) 1.5 x10^3/uL (0.0-1.1) Eosinophils # (Auto) 0.0 x10^3/uL (0.0-0.7) 0.2 x10^3/uL (0.0-0.7) Basophils # (Auto) 0.0 x10^3/uL (0.0-0.2) 0.1 x10^3/uL (0.0-0.2) Sodium Level 142 mmol/L (136-145) 140 mmol/L (136-145) Potassium Level 4.6 mmol/L (3.5-5.1) 5.2 mmol/L (3.5-5.1) Chloride Level 103 mmol/L (98-107) 107 mmol/L (98-107) Carbon Dioxide Level 24 mmol/L (21-32) 23 mmol/L (21-32) Anion Gap 15 (6-14) 10 (6-14) Blood Urea Nitrogen 82 mg/dL (8-26) 100 mg/dL (8-26) Creatinine 10.0 mg/dL (0.7-1.3) 11.0 mg/dL (0.7-1.3) Estimated GFR (Cockcroft-Gault) 6.4 5.8 Glucose Level 194 mg/dL (70-99) 117 mg/dL (70-99) Calcium Level 7.3 mg/dL (8.5-10.1) 6.3 mg/dL (8.5-10.1) BUN/Creatinine Ratio 9 (6-20) Total Bilirubin 0.2 mg/dL (0.2-1.0) Aspartate Amino Transf (AST/SGOT) 11 U/L (15-37) Alanine Aminotransferase (ALT/SGPT) 12 U/L (16-63) Alkaline Phosphatase 32 U/L (46-116) Total Protein 5.0 g/dL (6.4-8.2) Albumin 2.1 g/dL (3.4-5.0) Albumin/Globulin Ratio 0.7 (1.0-1.7) Laboratory Tests Test 12/01/16 15:50 12/01/16 21:45 12/02/16 04:00 White Blood Count 18.8 x10^3/uL (4.0-11.0) 20.7 x10^3/uL (4.0-11.0) 19.3 x10^3/uL (4.0-11.0) Red Blood Count 3.36 x10^6/uL (4.30-5.70) 3.12 x10^6/uL (4.30-5.70) 2.68 x10^6/uL (4.30-5.70) Hemoglobin 9.8 g/dL (13.0-17.5) 8.8 g/dL (13.0-17.5) 7.7 g/dL (13.0-17.5) Hematocrit 29.8 % (39.0-53.0) 26.5 % (39.0-53.0) 23.1 % (39.0-53.0) Mean Corpuscular Volume 89 fL (79-100) 85 fL (79-100) 86 fL (79-100) Mean Corpuscular Hemoglobin 29 pg (25-35) 28 pg (25-35) 29 pg (25-35) Mean Corpuscular Hemoglobin Concent 33 g/dL (31-37) 33 g/dL (31-37) 33 g/dL (31-37) Red Cell Distribution Width 17.2 % (11.5-14.5) 17.5 % (11.5-14.5) 17.1 % (11.5-14.5) Platelet Count 100 x10^3/uL (140-400) 115 x10^3/uL (140-400) 105 x10^3/uL (140-400) Neutrophils (%) (Auto) 78 % (31-73) Lymphocytes (%) (Auto) 12 % (24-48) Monocytes (%) (Auto) 8 % (0-9) Eosinophils (%) (Auto) 1 % (0-3) Basophils (%) (Auto) 1 % (0-3) Neutrophils # (Auto) 15.1 x10^3uL (1.8-7.7) Lymphocytes # (Auto) 2.4 x10^3/uL (1.0-4.8) Monocytes # (Auto) 1.5 x10^3/uL (0.0-1.1) Eosinophils # (Auto) 0.2 x10^3/uL (0.0-0.7) Basophils # (Auto) 0.1 x10^3/uL (0.0-0.2) Sodium Level 140 mmol/L (136-145) Potassium Level 5.2 mmol/L (3.5-5.1) Chloride Level 107 mmol/L (98-107) Carbon Dioxide Level 23 mmol/L (21-32) Anion Gap 10 (6-14) Blood Urea Nitrogen 100 mg/dL (8-26) Creatinine 11.0 mg/dL (0.7-1.3) Estimated GFR (Cockcroft-Gault) 5.8 BUN/Creatinine Ratio 9 (6-20) Glucose Level 117 mg/dL (70-99) Calcium Level 6.3 mg/dL (8.5-10.1) Total Bilirubin 0.2 mg/dL (0.2-1.0) Aspartate Amino Transf (AST/SGOT) 11 U/L (15-37) Alanine Aminotransferase (ALT/SGPT) 12 U/L (16-63) Alkaline Phosphatase 32 U/L (46-116) Total Protein 5.0 g/dL (6.4-8.2) Albumin 2.1 g/dL (3.4-5.0) Albumin/Globulin Ratio 0.7 (1.0-1.7) Medications Current Medications Sodium Chloride 1,000 ml @ 1,000 mls/hr 1X ONCE IV Last administered on t 20:06; Start 11/30/16 at 20:00; Stop 11/30/16 at 20:59; Status DC Pantoprazole Sodium (Protonix Vial) 80 mg 1X ONCE IVP Last administered on 11/30 20:05; Start 11/30/16 at 20:00; Stop 11/30/16 at 20:01; Status DC Pantoprazole Sodium 80 mg/ Sodium Chloride 100 ml @ 10 mls/hr Q10H IV Last administered on 12/02/16 08:31; Start 11/30/16 at 20:00 Ondansetron HCl (Zofran) 8 mg 1X ONCE IV Last administered on 11/30/16 20:15; Start 11/30/16 at 20:30; Stop 11/30/16 at 20:31; Status DC Fentanyl Citrate (Fentanyl 2ml Vial) 50 mcg 1X ONCE IV Last administered on 20:16; Start 11/30/16 at 20:30; Stop 11/30/16 at 20:31; Status DC Iohexol (Omnipaque 300 Mg/ml) 75 ml 1X ONCE IV Last administered on 11/30/16 21:16; Start 11/30/16 at 21:00; Stop 11/30/16 at 21:01; Status DC Info (Do NOT chart on this entry -- for MONITORING) 1 each PRN DAILY PRN MC SEE COMMENTS; Start 11/30/16 at 20:45; Stop 12/02/16 at 20:44 Metoclopramide HCl (Reglan) 10 mg 1X ONCE IV Last administered on 11/30/16 22: 46; Start 11/30/16 at 21:30; Stop 11/30/16 at 21:31; Status DC Ondansetron HCl (Zofran) 4 mg PRN Q8HRS PRN IV NAUSEA/VOMITING; Start 11/30/16 at 21:45; Stop 12/01/16 at 21:44; Status DC Sodium Chloride 1,000 ml @ 150 mls/hr Q6H40M IV Last administered on 12/01/16 05:44; Start 11/30/16 at 22:00; Stop 12/01/16 at 21:59; Status DC Pneumococcal Polyvalent Vaccine (Do NOT chart on this placeholder) 1 each 1X ONCE MC ; Start 12/01/16 at 09:00; Stop 12/01/16 at 09:01; Status UNV Pneumococcal Polyvalent Vaccine (Pneumovax 23) 0.5 ml ONCE ONCE VAX IM ; Start 12/01/16 at 09:00; Stop 12/01/16 at 09:01; Status DC Norepinephrine Bitartrate 250 ml @ As Directed STK-MED ONCE IV ; Start 12/01/16 at 03:40; Stop 12/01/16 at 03:41; Status DC Norepinephrine Bitartrate 250 ml @ 0 mls/hr CONT PRN IV SEE I/O RECORD Last administered on 12/01/16 04:32; Start 12/01/16 at 04:15 Morphine Sulfate 2 mg PRN Q2HR PRN IV SEVERE PAIN Last administered on 08:31; Start 12/01/16 at 06:15 Epinephrine HCl (EPINEPHrine SYRINGE) 1 mg STK-MED ONCE .ROUTE ; Start 12/01/16 at 10:42; Stop 12/01/16 at 10:43; Status DC Iohexol (Omnipaque 300 Mg/ml) 100 ml STK-MED ONCE .ROUTE ; Start 12/01/16 at 12: 33; Stop 12/01/16 at 12:34; Status DC Lidocaine/Sodium Bicarbonate (Buffered Lidocaine 1%) 20 ml STK-MED ONCE IJ ; Start 12/01/16 at 12:34; Stop 12/01/16 at 12:35; Status DC Heparin Sodium/ Sodium Chloride 1,500 ml @ As Directed STK-MED ONCE .ROUTE ; Start 12/01/16 at 12:34; Stop 12/01/16 at 12:35; Status DC Midazolam HCl (Versed) 5 mg STK-MED ONCE .ROUTE ; Start 12/01/16 at 14:09; Stop 12/01/16 at 14:10; Status DC Fentanyl Citrate (Fentanyl 2ml Vial) 100 mcg STK-MED ONCE .ROUTE ; Start at 14:09; Stop 12/01/16 at 14:10; Status DC Iohexol (Omnipaque 300 Mg/ml) 100 ml STK-MED ONCE .ROUTE ; Start 12/01/16 at 14: 38; Stop 12/01/16 at 14:39; Status DC Heparin Sodium/ Sodium Chloride 1,000 unit 1X ONCE IART Last administered on 15:19; Start 12/01/16 at 14:45; Stop 12/01/16 at 14:51; Status DC Heparin Sodium/ Sodium Chloride 1,000 unit 1X ONCE IART Last administered on 15:20; Start 12/01/16 at 14:45; Stop 12/01/16 at 14:52; Status DC Lidocaine/Sodium Bicarbonate (Buffered Lidocaine 1%) 20 ml 1X ONCE IJ Last administered on 12/01/16 15:18; Start 12/01/16 at 14:45; Stop 12/01/16 at 14:51; Status DC Midazolam HCl (Versed) 5 mg 1X ONCE IV Last administered on 12/01/16 15:17; Start 12/01/16 at 14:45; Stop 12/01/16 at 14:51; Status DC Fentanyl Citrate (Fentanyl 2ml Vial) 100 mcg 1X ONCE IV Last administered on 15:18; Start 12/01/16 at 14:45; Stop 12/01/16 at 14:51; Status DC Iohexol (Omnipaque 300 Mg/ml) 100 ml 1X ONCE IART Last administered on 15:18; Start 12/01/16 at 14:45; Stop 12/01/16 at 14:51; Status DC Propofol 40 ml @ As Directed STK-MED ONCE IV ; Start 12/01/16 at 16:47; Stop 12/01 at 16:48; Status DC Lidocaine HCl (Xylocaine-Mpf 1% Vial) 5 ml STK-MED ONCE .ROUTE ; Start 12/01/16 at 16:47; Stop 12/01/16 at 16:48; Status DC Phytonadione 10 mg/Sodium Chloride 51 ml @ 102 mls/hr 1X ONCE IV ; Start at 10:00; Stop 12/02/16 at 10:29; Status DC Sodium Chloride 1,000 ml @ 1,000 mls/hr Q1H PRN IV hypotension; Start 12/02/16 at 09:54; Stop 12/02/16 at 15:53 Sodium Chloride 1,000 ml @ 400 mls/hr Q2H30M PRN IV PATENCY; Start 12/02/16 at 09:54; Stop 12/02/16 at 21:53 Info (PHARMACY MONITORING -- do not chart) 1 each PRN DAILY PRN MC SEE COMMENTS ; Start 12/02/16 at 10:00; Status UNV Info (PHARMACY MONITORING -- do not chart) 1 each PRN DAILY PRN SEE COMMENTS ; Start 12/02/16 at 10:00 Saliva Substitute (Biotene Moisturizing Mouth) 2 spray PRN Q15MIN PRN PO DRY MOUTH Last administered on 12/02/16t 11:49; Start 12/02/16 at 10:45 Active Scripts Active Reported Iron 18 Mg Tablet 65 Mg PO Tramadol Hcl 50 Mg Tablet 50 Mg PO TID Amlodipine Besylate 10 Mg Tablet 10 Mg PO DAILY Clonidine Hcl 0.1 Mg Tablet 0.1 Mg PO BID Carvedilol 12.5 Mg Tablet 12.5 Mg PO BID Vitals/I & O Vital Sign - Last 24 Hours 12/01/16 12/01/16 12/01/16 12/01/16 13:13 14:10 14:25 14:25 Temp 98.9 98.6 98.6 98.9 98.6 98.6 Pulse 101 102 96 86 Resp 11 19 20 18 B/P (MAP) 112/66 (81) 150/66 141/74 128/73 Pulse Ox 100 O2 Delivery Room Air 12/01/16 12/01/16 12/01/16 12/01/16 15:10 15:18 15:27 15:45 Temp 98.4 98.6 98.4 98.6 Pulse 92 92 96 Resp 19 17 16 12 B/P (MAP) 147/79 152/99 (116) Pulse Ox 100 99 100 O2 Delivery Room Air Room Air Room Air 12/01/16 12/01/16 12/01/16 12/01/16 15:50 15:56 16:00 16:17 Temp 98.6 98.6 Pulse 96 94 96 Resp 12 14 20 B/P (MAP) 152/99 171/88 (115) 162/94 (116) Pulse Ox 100 100 O2 Delivery Room Air Room Air Room Air O2 Flow Rate 2.0 12/01/16 12/01/16 12/01/16 12/01/16 16:30 16:45 17:00 17:30 Pulse 94 94 94 98 Resp 16 10 11 13 B/P (MAP) 163/88 (113) 164/85 (111) 166/86 (112) 170/91 (117) Pulse Ox 100 100 100 100 O2 Delivery Room Air Room Air Room Air Room Air 12/01/16 12/01/16 12/01/16 12/01/16 18:00 19:00 20:00 20:00 Temp 98.9 98.9 Pulse 98 96 99 Resp 23 18 20 B/P (MAP) 157/86 (109) 148/73 (98) 151/80 (103) Pulse Ox 99 97 100 O2 Delivery Room Air Room Air Room Air Room Air 12/01/16 12/01/16 12/01/16 12/01/16 20:55 21:00 22:00 22:53 Pulse 99 101 97 Resp 16 18 16 14 B/P (MAP) 133/74 (93) 134/72 (92) 107/52 (70) Pulse Ox 87 100 100 100 O2 Delivery Room Air Room Air Nasal Cannula Nasal Cannula O2 Flow Rate 2.0 2.0 12/01/16 12/02/16 12/02/16 12/02/16 23:59 00:01 01:00 02:00 Pulse 94 96 95 Resp 18 20 16 B/P (MAP) 150/88 (108) 114/56 (75) 113/48 (69) Pulse Ox 99 99 96 O2 Delivery Nasal Cannula Nasal Cannula Nasal Cannula Nasal Cannula O2 Flow Rate 2.0 2.0 2.0 2.0 12/02/16 12/02/16 12/02/16 12/02/16 03:00 04:00 04:06 05:08 Temp 98.2 98.2 Pulse 91 101 90 Resp 18 16 18 B/P (MAP) 141/70 (93) 119/71 (87) 136/78 (97) Pulse Ox 95 99 100 O2 Delivery Nasal Cannula Nasal Cannula Nasal Cannula Nasal Cannula O2 Flow Rate 2.0 2.0 2.0 2.0 12/02/16 12/02/16 12/02/16 12/02/16 06:00 07:07 07:23 07:30 Temp 97.6 97.6 Pulse 94 96 B/P (MAP) 152/67 (95) 119/72 (88) Pulse Ox 100 99 O2 Delivery Nasal Cannula Nasal Cannula Nasal Cannula O2 Flow Rate 2.0 2.0 2.0 12/02/16 12/02/16 12/02/16 12/02/16 08:00 09:00 10:02 10:57 Temp 97.4 97.4 Pulse 83 86 97 97 Resp 16 B/P (MAP) 135/75 (95) 148/76 (100) 133/71 (91) 105/60 Pulse Ox 97 100 100 O2 Delivery Nasal Cannula Nasal Cannula Nasal Cannula O2 Flow Rate 2.0 2.0 2.0 12/02/16 12/02/16 12/02/16 12/02/16 11:00 11:12 11:17 12:01 Temp 98.3 97.9 98.3 97.9 Pulse 97 98 94 Resp 12 14 B/P (MAP) 116/57 (76) 116/57 121/64 Pulse Ox 100 O2 Delivery Nasal Cannula Nasal Cannula O2 Flow Rate 2.0 2.0 12/02/16 12:03 Pulse 102 B/P (MAP) 111/58 (75) Pulse Ox 100 O2 Delivery Room Air O2 Flow Rate Intake and Output 12/01/16 12/01/16 12/02/16 15:00 23:00 07:00 Intake Total 325 ml 1720 ml 0 ml Output Total 250 ml 300 ml Balance 325 ml 1470 ml -300 ml Problem List Acute blood loss anemia- gastric ulcer/dielufuoy lesion leads differential. Plan medical therpay with serial cbcs npo for additional 24 hours priro to trial of liquids MIMI CLEARY MD Dec 02, 2016 12:39
--- NOTE | 2016-12-02 21:16 | PDOC2 ---
CONSULT Date of Consult Date of Consult DATE: 12/01/16 TIME: 15:00 Past Medical History Cardiovascular: HTN Renal/: Chronic renal failure Past Surgical History Past Surgical History: No pertinent history Family History Family History: Heart Disease, Hypertension Social History No ALCOHOL: none Drugs: Marijuana Current Medications Current Medications Current Medications Sodium Chloride 1,000 ml @ 1,000 mls/hr 1X ONCE IV Last administered on 20:06; Start 11/30/16 at 20:00; Stop 11/30/16 at 20:59; Status DC Pantoprazole Sodium (Protonix Vial) 80 mg 1X ONCE IVP Last administered on 11/30 20:05; Start 11/30/16 at 20:00; Stop 11/30/16 at 20:01; Status DC Pantoprazole Sodium 80 mg/ Sodium Chloride 100 ml @ 10 mls/hr Q10H IV Last administered on 12/02/16 19:36; Start 11/30/16 at 20:00 Ondansetron HCl (Zofran) 8 mg 1X ONCE IV Last administered on 11/30/16 20:15; Start 11/30/16 at 20:30; Stop 11/30/16 at 20:31; Status DC Fentanyl Citrate (Fentanyl 2ml Vial) 50 mcg 1X ONCE IV Last administered on 20:16; Start 11/30/16 at 20:30; Stop 11/30/16 at 20:31; Status DC Iohexol (Omnipaque 300 Mg/ml) 75 ml 1X ONCE IV Last administered on 11/30/16 21:16; Start 11/30/16 at 21:00; Stop 11/30/16 at 21:01; Status DC Info (Do NOT chart on this entry -- for MONITORING) 1 each PRN DAILY PRN MC SEE COMMENTS; Start 11/30/16 at 20:45; Stop 12/02/16 at 20:44; Status DC Metoclopramide HCl (Reglan) 10 mg 1X ONCE IV Last administered on 11/30/16 22: 46; Start 11/30/16 at 21:30; Stop 11/30/16 at 21:31; Status DC Ondansetron HCl (Zofran) 4 mg PRN Q8HRS PRN IV NAUSEA/VOMITING; Start 11/30/16 at 21:45; Stop 12/01/16 at 21:44; Status DC Sodium Chloride 1,000 ml @ 150 mls/hr Q6H40M IV Last administered on 12/01/16 05:44; Start 11/30/16 at 22:00; Stop 12/01/16 at 21:59; Status DC Pneumococcal Polyvalent Vaccine (Do NOT chart on this placeholder) 1 each 1X ONCE MC ; Start 12/01/16 at 09:00; Stop 12/01/16 at 09:01; Status UNV Pneumococcal Polyvalent Vaccine (Pneumovax 23) 0.5 ml ONCE ONCE VAX IM ; Start 12/01/16 at 09:00; Stop 12/01/16 at 09:01; Status DC Norepinephrine Bitartrate 250 ml @ As Directed STK-MED ONCE IV ; Start 12/01/16 at 03:40; Stop 12/01/16 at 03:41; Status DC Norepinephrine Bitartrate 250 ml @ 0 mls/hr CONT PRN IV SEE I/O RECORD Last administered on 12/01/16 04:32; Start 12/01/16 at 04:15 Morphine Sulfate 2 mg PRN Q2HR PRN IV SEVERE PAIN Last administered on 08:31; Start 12/01/16 at 06:15 Epinephrine HCl (EPINEPHrine SYRINGE) 1 mg STK-MED ONCE .ROUTE ; Start 12/01/16 at 10:42; Stop 12/01/16 at 10:43; Status DC Iohexol (Omnipaque 300 Mg/ml) 100 ml STK-MED ONCE .ROUTE ; Start 12/01/16 at 12: 33; Stop 12/01/16 at 12:34; Status DC Lidocaine/Sodium Bicarbonate (Buffered Lidocaine 1%) 20 ml STK-MED ONCE IJ ; Start 12/01/16 at 12:34; Stop 12/01/16 at 12:35; Status DC Heparin Sodium/ Sodium Chloride 1,500 ml @ As Directed STK-MED ONCE .ROUTE ; Start 12/01/16 at 12:34; Stop 12/01/16 at 12:35; Status DC Midazolam HCl (Versed) 5 mg STK-MED ONCE .ROUTE ; Start 12/01/16 at 14:09; Stop 12/01/16 at 14:10; Status DC Fentanyl Citrate (Fentanyl 2ml Vial) 100 mcg STK-MED ONCE .ROUTE ; Start at 14:09; Stop 12/01/16 at 14:10; Status DC Iohexol (Omnipaque 300 Mg/ml) 100 ml STK-MED ONCE .ROUTE ; Start 12/01/16 at 14: 38; Stop 12/01/16 at 14:39; Status DC Heparin Sodium/ Sodium Chloride 1,000 unit 1X ONCE IART Last administered on 15:19; Start 12/01/16 at 14:45; Stop 12/01/16 at 14:51; Status DC Heparin Sodium/ Sodium Chloride 1,000 unit 1X ONCE IART Last administered on 15:20; Start 12/01/16 at 14:45; Stop 12/01/16 at 14:52; Status DC Lidocaine/Sodium Bicarbonate (Buffered Lidocaine 1%) 20 ml 1X ONCE IJ Last administered on 12/01/16 15:18; Start 12/01/16 at 14:45; Stop 12/01/16 at 14:51; Status DC Midazolam HCl (Versed) 5 mg 1X ONCE IV Last administered on 12/01/16 15:17; Start 12/01/16 at 14:45; Stop 12/01/16 at 14:51; Status DC Fentanyl Citrate (Fentanyl 2ml Vial) 100 mcg 1X ONCE IV Last administered on 15:18; Start 12/01/16 at 14:45; Stop 12/01/16 at 14:51; Status DC Iohexol (Omnipaque 300 Mg/ml) 100 ml 1X ONCE IART Last administered on 15:18; Start 12/01/16 at 14:45; Stop 12/01/16 at 14:51; Status DC Propofol 40 ml @ As Directed STK-MED ONCE IV ; Start 12/01/16 at 16:47; Stop 12/01 at 16:48; Status DC Lidocaine HCl (Xylocaine-Mpf 1% Vial) 5 ml STK-MED ONCE .ROUTE ; Start 12/01/16 at 16:47; Stop 12/01/16 at 16:48; Status DC Phytonadione 10 mg/Sodium Chloride 51 ml @ 102 mls/hr 1X ONCE IV Last administered on 8/5/17at 14:14; Start 12/02/16 at 10:00; Stop 12/02/16 at 10:29; Status DC Sodium Chloride 1,000 ml @ 1,000 mls/hr Q1H PRN IV hypotension; Start 12/02/16 at 09:54; Stop 12/02/16 at 15:53; Status DC Sodium Chloride 1,000 ml @ 400 mls/hr Q2H30M PRN IV PATENCY; Start 12/02/16 at 09:54; Stop 12/02/16 at 21:53 Info (PHARMACY MONITORING -- do not chart) 1 each PRN DAILY PRN MC SEE COMMENTS ; Start 12/02/16 at 10:00; Status UNV Info (PHARMACY MONITORING -- do not chart) 1 each PRN DAILY PRN MC SEE COMMENTS ; Start 12/02/16 at 10:00 Saliva Substitute (Biotene Moisturizing Mouth) 2 spray PRN Q15MIN PRN PO DRY MOUTH Last administered on 12/02/16t 11:49; Start 12/02/16 at 10:45 Active Scripts Active Reported Iron 18 Mg Tablet 65 Mg PO Tramadol Hcl 50 Mg Tablet 50 Mg PO TID Amlodipine Besylate 10 Mg Tablet 10 Mg PO DAILY Clonidine Hcl 0.1 Mg Tablet 0.1 Mg PO BID Carvedilol 12.5 Mg Tablet 12.5 Mg PO BID Allergies Allergies: Coded Allergies: No Known Drug Allergies (Unverified , 08/27/13) Vitals VITALS Vital Signs Date Time Temp Pulse Resp B/P (MAP) Pulse Ox O2 Delivery O2 Flow Rate FiO2 12/02/16 20:00 98.8 88 15 139/77 (97) 95 Room Air 98.8 12/02/16 16:06 2.0 Labs Labs Laboratory Tests Test 11/30/16 23:25 12/01/16 00:30 12/01/16 08:35 12/01/16 15:50 Nasal Screen MRSA (PCR) Negative (Negative) White Blood Count 19.9 x10^3/uL (4.0-11.0) 19.0 x10^3/uL (4.0-11.0) 18.8 x10^3/uL (4.0-11.0) Red Blood Count 2.63 x10^6/uL (4.30-5.70) 2.22 x10^6/uL (4.30-5.70) 3.36 x10^6/uL (4.30-5.70) Hemoglobin 6.7 g/dL (13.0-17.5) 5.8 g/dL (13.0-17.5) 9.8 g/dL (13.0-17.5) Hematocrit 20.9 % (39.0-53.0) 17.7 % (39.0-53.0) 29.8 % (39.0-53.0) Mean Corpuscular Volume 79 fL (79-100) 80 fL (79-100) 89 fL (79-100) Mean Corpuscular Hemoglobin 26 pg (25-35) 26 pg (25-35) 29 pg (25-35) Mean Corpuscular Hemoglobin Concent 32 g/dL (31-37) 33 g/dL (31-37) 33 g/dL (31-37) Red Cell Distribution Width 19.4 % (11.5-14.5) 17.9 % (11.5-14.5) 17.2 % (11.5-14.5) Platelet Count 201 x10^3/uL (140-400) 177 x10^3/uL (140-400) 100 x10^3/uL (140-400) Neutrophils (%) (Auto) 80 % (31-73) Lymphocytes (%) (Auto) 13 % (24-48) Monocytes (%) (Auto) 7 % (0-9) Eosinophils (%) (Auto) 0 % (0-3) Basophils (%) (Auto) 0 % (0-3) Neutrophils # (Auto) 15.1 x10^3uL (1.8-7.7) Lymphocytes # (Auto) 2.5 x10^3/uL (1.0-4.8) Monocytes # (Auto) 1.3 x10^3/uL (0.0-1.1) Eosinophils # (Auto) 0.0 x10^3/uL (0.0-0.7) Basophils # (Auto) 0.0 x10^3/uL (0.0-0.2) Sodium Level 142 mmol/L (136-145) Potassium Level 4.6 mmol/L (3.5-5.1) Chloride Level 103 mmol/L (98-107) Carbon Dioxide Level 24 mmol/L (21-32) Anion Gap 15 (6-14) Blood Urea Nitrogen 82 mg/dL (8-26) Creatinine 10.0 mg/dL (0.7-1.3) Estimated GFR (Cockcroft-Gault) 6.4 Glucose Level 194 mg/dL (70-99) Calcium Level 7.3 mg/dL (8.5-10.1) Test 12/01/16 21:45 12/02/16 04:00 White Blood Count 20.7 x10^3/uL (4.0-11.0) 19.3 x10^3/uL (4.0-11.0) Red Blood Count 3.12 x10^6/uL (4.30-5.70) 2.68 x10^6/uL (4.30-5.70) Hemoglobin 8.8 g/dL (13.0-17.5) 7.7 g/dL (13.0-17.5) Hematocrit 26.5 % (39.0-53.0) 23.1 % (39.0-53.0) Mean Corpuscular Volume 85 fL (79-100) 86 fL (79-100) Mean Corpuscular Hemoglobin 28 pg (25-35) 29 pg (25-35) Mean Corpuscular Hemoglobin Concent 33 g/dL (31-37) 33 g/dL (31-37) Red Cell Distribution Width 17.5 % (11.5-14.5) 17.1 % (11.5-14.5) Platelet Count 115 x10^3/uL (140-400) 105 x10^3/uL (140-400) Neutrophils (%) (Auto) 78 % (31-73) Lymphocytes (%) (Auto) 12 % (24-48) Monocytes (%) (Auto) 8 % (0-9) Eosinophils (%) (Auto) 1 % (0-3) Basophils (%) (Auto) 1 % (0-3) Neutrophils # (Auto) 15.1 x10^3uL (1.8-7.7) Lymphocytes # (Auto) 2.4 x10^3/uL (1.0-4.8) Monocytes # (Auto) 1.5 x10^3/uL (0.0-1.1) Eosinophils # (Auto) 0.2 x10^3/uL (0.0-0.7) Basophils # (Auto) 0.1 x10^3/uL (0.0-0.2) Sodium Level 140 mmol/L (136-145) Potassium Level 5.2 mmol/L (3.5-5.1) Chloride Level 107 mmol/L (98-107) Carbon Dioxide Level 23 mmol/L (21-32) Anion Gap 10 (6-14) Blood Urea Nitrogen 100 mg/dL (8-26) Creatinine 11.0 mg/dL (0.7-1.3) Estimated GFR (Cockcroft-Gault) 5.8 BUN/Creatinine Ratio 9 (6-20) Glucose Level 117 mg/dL (70-99) Calcium Level 6.3 mg/dL (8.5-10.1) Total Bilirubin 0.2 mg/dL (0.2-1.0) Aspartate Amino Transf (AST/SGOT) 11 U/L (15-37) Alanine Aminotransferase (ALT/SGPT) 12 U/L (16-63) Alkaline Phosphatase 32 U/L (46-116) Total Protein 5.0 g/dL (6.4-8.2) Albumin 2.1 g/dL (3.4-5.0) Albumin/Globulin Ratio 0.7 (1.0-1.7) Laboratory Tests Test 12/01/16 21:45 12/02/16 04:00 White Blood Count 20.7 x10^3/uL (4.0-11.0) 19.3 x10^3/uL (4.0-11.0) Red Blood Count 3.12 x10^6/uL (4.30-5.70) 2.68 x10^6/uL (4.30-5.70) Hemoglobin 8.8 g/dL (13.0-17.5) 7.7 g/dL (13.0-17.5) Hematocrit 26.5 % (39.0-53.0) 23.1 % (39.0-53.0) Mean Corpuscular Volume 85 fL (79-100) 86 fL (79-100) Mean Corpuscular Hemoglobin 28 pg (25-35) 29 pg (25-35) Mean Corpuscular Hemoglobin Concent 33 g/dL (31-37) 33 g/dL (31-37) Red Cell Distribution Width 17.5 % (11.5-14.5) 17.1 % (11.5-14.5) Platelet Count 115 x10^3/uL (140-400) 105 x10^3/uL (140-400) Neutrophils (%) (Auto) 78 % (31-73) Lymphocytes (%) (Auto) 12 % (24-48) Monocytes (%) (Auto) 8 % (0-9) Eosinophils (%) (Auto) 1 % (0-3) Basophils (%) (Auto) 1 % (0-3) Neutrophils # (Auto) 15.1 x10^3uL (1.8-7.7) Lymphocytes # (Auto) 2.4 x10^3/uL (1.0-4.8) Monocytes # (Auto) 1.5 x10^3/uL (0.0-1.1) Eosinophils # (Auto) 0.2 x10^3/uL (0.0-0.7) Basophils # (Auto) 0.1 x10^3/uL (0.0-0.2) Sodium Level 140 mmol/L (136-145) Potassium Level 5.2 mmol/L (3.5-5.1) Chloride Level 107 mmol/L (98-107) Carbon Dioxide Level 23 mmol/L (21-32) Anion Gap 10 (6-14) Blood Urea Nitrogen 100 mg/dL (8-26) Creatinine 11.0 mg/dL (0.7-1.3) Estimated GFR (Cockcroft-Gault) 5.8 BUN/Creatinine Ratio 9 (6-20) Glucose Level 117 mg/dL (70-99) Calcium Level 6.3 mg/dL (8.5-10.1) Total Bilirubin 0.2 mg/dL (0.2-1.0) Aspartate Amino Transf (AST/SGOT) 11 U/L (15-37) Alanine Aminotransferase (ALT/SGPT) 12 U/L (16-63) Alkaline Phosphatase 32 U/L (46-116) Total Protein 5.0 g/dL (6.4-8.2) Albumin 2.1 g/dL (3.4-5.0) Albumin/Globulin Ratio 0.7 (1.0-1.7) Assessment/Plan Assessment/Plan RENAL CONSULT/ AR ESRD HTN w CKD GI BLEED / ANEMIA Supportive care. HD in am ( 12/02). CPM. ROBERT JOYNER MD Dec 02, 2016 21:16
--- NOTE | 2016-12-02 21:18 | PDOC4 ---
PROCEDURE Procedure RENAL DIALYSIS / AR HD done F 180/HCO3 / 3K Qb 450 ML/MIN Qd 600 ml/min No heparin UF goal to dry weight. Well tolerated. No complications. ROBERT JOYNER MD Dec 02, 2016 21:18
--- NOTE | 2016-12-02 21:22 | PDOC ---
Provider Note Provider Note RENAL F/U : AR Date of service : 12/02/16. S : Resting comfortably. No new or active c/o O : VSS Afebrile. Neck : Supple. Lungs : Decreased bases. CVS : RRR ABD : Soft, benign appearance. EXT : No CCE Neuro : Intact grossly. Labs reviewed. A/P : ESRD HTN w CKD ANEMIA w GI BLEED> HD done Supportive care Labs reviewed. Critical care time spent : 20 mins 14:00-14:20 ROBERT JOYNER MD Dec 02, 2016 21:21
[2016-12-03] VITALS (14 sets, daily range): BP systolic 115–190; BP diastolic 54–97
[2016-12-03] MEDS: PANTOPRAZOLE SODIUM IV 80 MG in IV NORMAL SALINE 100ML 100 ML IV SCH (05:21)
[2016-12-03 07:45] LABS: HEMATOCRIT 23.5 % (39.0-53.0); HEMOGLOBIN 7.9 g/dL (13.0-17.5); RED BLOOD COUNT 2.75 x10^6/uL (4.30-5.70); RED CELL DISTRIBUTION WIDTH 16.8 % (11.5-14.5); WHITE BLOOD COUNT 17.2 x10^3/uL (4.0-11.0)
[2016-12-03 08:04] LABS: CREATININE 9.5 mg/dL (0.7-1.3); GFR 6.8; POTASSIUM 3.9 mmol/L (3.5-5.1)
--- NOTE | 2016-12-03 09:19 | PDOC ---
PROGRESS NOTES Chief Complaint Chief Complaint ACute blood loss anemia GI bleed, Upper, s/p EGD on admit, clips, IR attempted to coil, not fully successful htn,, recently hypotensive, s/p fluid boluses s ESRD, HD yesterday thrombocytpenia History of Present Illness History of Present Illness restart home meds awake and alert, sitting up today, no new complaint is a few pounds over dry weight, blood and NS given mult doses yesterday BP excellent hgb stable, s/p 1 u yesterday clear liquid no,w, advance to full add [facility], he would like a shower Vitals Vitals Vital Signs Date Time Temp Pulse Resp B/P (MAP) Pulse Ox O2 Delivery O2 Flow Rate FiO2 12/03/16 08:48 98.7 88 12 136/63 (87) 99 Room Air 98.7 12/02/16 16:06 2.0 Physical Exam General: Alert, Cooperative, mild distress, moderate distress Abdomen: Normal bowel sounds Extremities: No clubbing Skin: No rashes Labs LABS Laboratory Tests Test 12/03/16 07:30 White Blood Count 17.2 x10^3/uL (4.0-11.0) Red Blood Count 2.75 x10^6/uL (4.30-5.70) Hemoglobin 7.9 g/dL (13.0-17.5) Hematocrit 23.5 % (39.0-53.0) Mean Corpuscular Volume 86 fL (79-100) Mean Corpuscular Hemoglobin 29 pg (25-35) Mean Corpuscular Hemoglobin Concent 34 g/dL (31-37) Red Cell Distribution Width 16.8 % (11.5-14.5) Platelet Count 119 x10^3/uL (140-400) Sodium Level 140 mmol/L (136-145) Potassium Level 3.9 mmol/L (3.5-5.1) Chloride Level 102 mmol/L (98-107) Carbon Dioxide Level 28 mmol/L (21-32) Anion Gap 10 (6-14) Blood Urea Nitrogen 56 mg/dL (8-26) Creatinine 9.5 mg/dL (0.7-1.3) Estimated GFR (Cockcroft-Gault) 6.8 Glucose Level 88 mg/dL (70-99) Calcium Level 7.0 mg/dL (8.5-10.1) Review of Systems Review of Systems he wants a shower and a toothbrush, wants to leave, will discuss with try clears advance diet Comment Review of Relevant I have reviewed the following items tomas (where applicable) has been applied. Labs Laboratory Tests Test 12/01/16 15:50 12/01/16 21:45 12/02/16 04:00 12/02/16 09:05 White Blood Count 18.8 x10^3/uL (4.0-11.0) 20.7 x10^3/uL (4.0-11.0) 19.3 x10^3/uL (4.0-11.0) Red Blood Count 3.36 x10^6/uL (4.30-5.70) 3.12 x10^6/uL (4.30-5.70) 2.68 x10^6/uL (4.30-5.70) Hemoglobin 9.8 g/dL (13.0-17.5) 8.8 g/dL (13.0-17.5) 7.7 g/dL (13.0-17.5) Hematocrit 29.8 % (39.0-53.0) 26.5 % (39.0-53.0) 23.1 % (39.0-53.0) Mean Corpuscular Volume 89 fL (79-100) 85 fL (79-100) 86 fL (79-100) Mean Corpuscular Hemoglobin 29 pg (25-35) 28 pg (25-35) 29 pg (25-35) Mean Corpuscular Hemoglobin Concent 33 g/dL (31-37) 33 g/dL (31-37) 33 g/dL (31-37) Red Cell Distribution Width 17.2 % (11.5-14.5) 17.5 % (11.5-14.5) 17.1 % (11.5-14.5) Platelet Count 100 x10^3/uL (140-400) 115 x10^3/uL (140-400) 105 x10^3/uL (140-400) Neutrophils (%) (Auto) 78 % (31-73) Lymphocytes (%) (Auto) 12 % (24-48) Monocytes (%) (Auto) 8 % (0-9) Eosinophils (%) (Auto) 1 % (0-3) Basophils (%) (Auto) 1 % (0-3) Neutrophils # (Auto) 15.1 x10^3uL (1.8-7.7) Lymphocytes # (Auto) 2.4 x10^3/uL (1.0-4.8) Monocytes # (Auto) 1.5 x10^3/uL (0.0-1.1) Eosinophils # (Auto) 0.2 x10^3/uL (0.0-0.7) Basophils # (Auto) 0.1 x10^3/uL (0.0-0.2) Sodium Level 140 mmol/L (136-145) Potassium Level 5.2 mmol/L (3.5-5.1) Chloride Level 107 mmol/L (98-107) Carbon Dioxide Level 23 mmol/L (21-32) Anion Gap 10 (6-14) Blood Urea Nitrogen 100 mg/dL (8-26) Creatinine 11.0 mg/dL (0.7-1.3) Estimated GFR (Cockcroft-Gault) 5.8 BUN/Creatinine Ratio 9 (6-20) Glucose Level 117 mg/dL (70-99) Calcium Level 6.3 mg/dL (8.5-10.1) Total Bilirubin 0.2 mg/dL (0.2-1.0) Aspartate Amino Transf (AST/SGOT) 11 U/L (15-37) Alanine Aminotransferase (ALT/SGPT) 12 U/L (16-63) Alkaline Phosphatase 32 U/L (46-116) Total Protein 5.0 g/dL (6.4-8.2) Albumin 2.1 g/dL (3.4-5.0) Albumin/Globulin Ratio 0.7 (1.0-1.7) Hepatitis B Surface Antibody Reactive (.) Hepatitis B Surface Antigen Negative (Negative) Test 12/03/16 07:30 White Blood Count 17.2 x10^3/uL (4.0-11.0) Red Blood Count 2.75 x10^6/uL (4.30-5.70) Hemoglobin 7.9 g/dL (13.0-17.5) Hematocrit 23.5 % (39.0-53.0) Mean Corpuscular Volume 86 fL (79-100) Mean Corpuscular Hemoglobin 29 pg (25-35) Mean Corpuscular Hemoglobin Concent 34 g/dL (31-37) Red Cell Distribution Width 16.8 % (11.5-14.5) Platelet Count 119 x10^3/uL (140-400) Sodium Level 140 mmol/L (136-145) Potassium Level 3.9 mmol/L (3.5-5.1) Chloride Level 102 mmol/L (98-107) Carbon Dioxide Level 28 mmol/L (21-32) Anion Gap 10 (6-14) Blood Urea Nitrogen 56 mg/dL (8-26) Creatinine 9.5 mg/dL (0.7-1.3) Estimated GFR (Cockcroft-Gault) 6.8 Glucose Level 88 mg/dL (70-99) Calcium Level 7.0 mg/dL (8.5-10.1) Laboratory Tests Test 12/03/16 07:30 White Blood Count 17.2 x10^3/uL (4.0-11.0) Red Blood Count 2.75 x10^6/uL (4.30-5.70) Hemoglobin 7.9 g/dL (13.0-17.5) Hematocrit 23.5 % (39.0-53.0) Mean Corpuscular Volume 86 fL (79-100) Mean Corpuscular Hemoglobin 29 pg (25-35) Mean Corpuscular Hemoglobin Concent 34 g/dL (31-37) Red Cell Distribution Width 16.8 % (11.5-14.5) Platelet Count 119 x10^3/uL (140-400) Sodium Level 140 mmol/L (136-145) Potassium Level 3.9 mmol/L (3.5-5.1) Chloride Level 102 mmol/L (98-107) Carbon Dioxide Level 28 mmol/L (21-32) Anion Gap 10 (6-14) Blood Urea Nitrogen 56 mg/dL (8-26) Creatinine 9.5 mg/dL (0.7-1.3) Estimated GFR (Cockcroft-Gault) 6.8 Glucose Level 88 mg/dL (70-99) Calcium Level 7.0 mg/dL (8.5-10.1) Medications Current Medications Sodium Chloride 1,000 ml @ 1,000 mls/hr 1X ONCE IV Last administered on 20:06; Start 11/30/16 at 20:00; Stop 11/30/16 at 20:59; Status DC Pantoprazole Sodium (Protonix Vial) 80 mg 1X ONCE IVP Last administered on 11/30 20:05; Start 11/30/16 at 20:00; Stop 11/30/16 at 20:01; Status DC Pantoprazole Sodium 80 mg/ Sodium Chloride 100 ml @ 10 mls/hr Q10H IV Last administered on 12/03/16 05:21; Start 11/30/16 at 20:00 Ondansetron HCl (Zofran) 8 mg 1X ONCE IV Last administered on 11/30/16 20:15; Start 11/30/16 at 20:30; Stop 11/30/16 at 20:31; Status DC Fentanyl Citrate (Fentanyl 2ml Vial) 50 mcg 1X ONCE IV Last administered on 20:16; Start 11/30/16 at 20:30; Stop 11/30/16 at 20:31; Status DC Iohexol (Omnipaque 300 Mg/ml) 75 ml 1X ONCE IV Last administered on 11/30/16 21:16; Start 11/30/16 at 21:00; Stop 11/30/16 at 21:01; Status DC Info (Do NOT chart on this entry -- for MONITORING) 1 each PRN DAILY PRN MC SEE COMMENTS; Start 11/30/16 at 20:45; Stop 12/02/16 at 20:44; Status DC Metoclopramide HCl (Reglan) 10 mg 1X ONCE IV Last administered on 11/30/16 22: 46; Start 11/30/16 at 21:30; Stop 11/30/16 at 21:31; Status DC Ondansetron HCl (Zofran) 4 mg PRN Q8HRS PRN IV NAUSEA/VOMITING; Start 11/30/16 at 21:45; Stop 12/01/16 at 21:44; Status DC Sodium Chloride 1,000 ml @ 150 mls/hr Q6H40M IV Last administered on 12/01/16 05:44; Start 11/30/16 at 22:00; Stop 12/01/16 at 21:59; Status DC Pneumococcal Polyvalent Vaccine (Do NOT chart on this placeholder) 1 each 1X ONCE MC ; Start 12/01/16 at 09:00; Stop 12/01/16 at 09:01; Status UNV Pneumococcal Polyvalent Vaccine (Pneumovax 23) 0.5 ml ONCE ONCE VAX IM ; Start 12/01/16 at 09:00; Stop 12/01/16 at 09:01; Status DC Norepinephrine Bitartrate 250 ml @ As Directed STK-MED ONCE IV ; Start 12/01/16 at 03:40; Stop 12/01/16 at 03:41; Status DC Norepinephrine Bitartrate 250 ml @ 0 mls/hr CONT PRN IV SEE I/O RECORD Last administered on 12/01/16 04:32; Start 12/01/16 at 04:15 Morphine Sulfate 2 mg PRN Q2HR PRN IV SEVERE PAIN Last administered on 08:31; Start 12/01/16 at 06:15 Epinephrine HCl (EPINEPHrine SYRINGE) 1 mg STK-MED ONCE .ROUTE ; Start 12/01/16 at 10:42; Stop 12/01/16 at 10:43; Status DC Iohexol (Omnipaque 300 Mg/ml) 100 ml STK-MED ONCE .ROUTE ; Start 12/01/16 at 12: 33; Stop 12/01/16 at 12:34; Status DC Lidocaine/Sodium Bicarbonate (Buffered Lidocaine 1%) 20 ml STK-MED ONCE IJ ; Start 12/01/16 at 12:34; Stop 12/01/16 at 12:35; Status DC Heparin Sodium/ Sodium Chloride 1,500 ml @ As Directed STK-MED ONCE .ROUTE ; Start 12/01/16 at 12:34; Stop 12/01/16 at 12:35; Status DC Midazolam HCl (Versed) 5 mg STK-MED ONCE .ROUTE ; Start 12/01/16 at 14:09; Stop 12/01/16 at 14:10; Status DC Fentanyl Citrate (Fentanyl 2ml Vial) 100 mcg STK-MED ONCE .ROUTE ; Start at 14:09; Stop 12/01/16 at 14:10; Status DC Iohexol (Omnipaque 300 Mg/ml) 100 ml STK-MED ONCE .ROUTE ; Start 12/01/16 at 14: 38; Stop 12/01/16 at 14:39; Status DC Heparin Sodium/ Sodium Chloride 1,000 unit 1X ONCE IART Last administered on 15:19; Start 12/01/16 at 14:45; Stop 12/01/16 at 14:51; Status DC Heparin Sodium/ Sodium Chloride 1,000 unit 1X ONCE IART Last administered on 15:20; Start 12/01/16 at 14:45; Stop 12/01/16 at 14:52; Status DC Lidocaine/Sodium Bicarbonate (Buffered Lidocaine 1%) 20 ml 1X ONCE IJ Last administered on 12/01/16 15:18; Start 12/01/16 at 14:45; Stop 12/01/16 at 14:51; Status DC Midazolam HCl (Versed) 5 mg 1X ONCE IV Last administered on 12/01/16 15:17; Start 12/01/16 at 14:45; Stop 12/01/16 at 14:51; Status DC Fentanyl Citrate (Fentanyl 2ml Vial) 100 mcg 1X ONCE IV Last administered on 15:18; Start 12/01/16 at 14:45; Stop 12/01/16 at 14:51; Status DC Iohexol (Omnipaque 300 Mg/ml) 100 ml 1X ONCE IART Last administered on 15:18; Start 12/01/16 at 14:45; Stop 12/01/16 at 14:51; Status DC Propofol 40 ml @ As Directed STK-MED ONCE IV ; Start 12/01/16 at 16:47; Stop 12/01 at 16:48; Status DC Lidocaine HCl (Xylocaine-Mpf 1% Vial) 5 ml STK-MED ONCE .ROUTE ; Start 12/01/16 at 16:47; Stop 12/01/16 at 16:48; Status DC Phytonadione 10 mg/Sodium Chloride 51 ml @ 102 mls/hr 1X ONCE IV Last administered on 12/02/16 14:14; Start 12/02/16 at 10:00; Stop 12/02/16 at 10:29; Status DC Sodium Chloride 1,000 ml @ 1,000 mls/hr Q1H PRN IV hypotension; Start 12/02/16 at 09:54; Stop 12/02/16 at 15:53; Status DC Sodium Chloride 1,000 ml @ 400 mls/hr Q2H30M PRN IV PATENCY; Start 12/02/16 at 09:54; Stop 12/02/16 at 21:53; Status DC Info (PHARMACY MONITORING -- do not chart) 1 each PRN DAILY PRN MC SEE COMMENTS ; Start 12/02/16 at 10:00; Status UNV Info (PHARMACY MONITORING -- do not chart) 1 each PRN DAILY PRN MC SEE COMMENTS ; Start 12/02/16 at 10:00 Saliva Substitute (Biotene Moisturizing Mouth) 2 spray PRN Q15MIN PRN PO DRY MOUTH Last administered on 12/02/16t 11:49; Start 12/02/16 at 10:45 Active Scripts Active Reported Iron 18 Mg Tablet 65 Mg PO Tramadol Hcl 50 Mg Tablet 50 Mg PO TID Amlodipine Besylate 10 Mg Tablet 10 Mg PO DAILY Clonidine Hcl 0.1 Mg Tablet 0.1 Mg PO BID Carvedilol 12.5 Mg Tablet 12.5 Mg PO BID Vitals/I & O Vital Sign - Last 24 Hours 12/02/16 12/02/16 12/02/16 12/02/16 10:02 10:57 11:00 11:12 Temp 97.4 98.3 97.4 98.3 Pulse 97 97 97 98 Resp 16 12 B/P (MAP) 133/71 (91) 105/60 116/57 (76) 116/57 Pulse Ox 100 100 O2 Delivery Nasal Cannula Nasal Cannula O2 Flow Rate 2.0 2.0 12/02/16 12/02/16 12/02/16 12/02/16 11:17 12:01 12:03 13:06 Temp 97.9 97.9 Pulse 94 102 105 Resp 14 B/P (MAP) 121/64 111/58 (75) 110/70 (83) Pulse Ox 100 100 O2 Delivery Nasal Cannula Room Air Room Air O2 Flow Rate 2.0 12/02/16 12/02/16 12/02/16 12/02/16 14:00 15:00 16:01 16:06 Pulse 94 87 101 Resp 13 16 B/P (MAP) 152/79 (103) 128/69 (88) 131/75 (93) Pulse Ox 100 100 100 O2 Delivery Room Air Nasal Cannula Nasal Cannula Nasal Cannula O2 Flow Rate 2.0 2.0 2.0 12/02/16 12/02/16 12/02/16 12/02/16 17:06 17:14 19:00 19:50 Temp 98.9 98.9 Pulse 99 98 Resp 24 B/P (MAP) 121/68 (85) 123/70 (87) Pulse Ox 86 98 96 O2 Delivery Room Air Room Air Room Air Room Air 12/02/16 12/02/16 12/02/16 12/02/16 20:00 21:14 22:00 23:00 Temp 98.8 98.8 Pulse 88 95 98 98 Resp 15 17 16 20 B/P (MAP) 139/77 (97) 153/89 (110) 151/86 (107) 142/71 (94) Pulse Ox 95 98 93 97 O2 Delivery Room Air Room Air Room Air Room Air 12/03/16 12/03/16 12/03/16 12/03/16 00:05 00:05 01:00 02:00 Temp 99.4 99.4 Pulse 95 86 96 Resp 20 12 16 B/P (MAP) 124/67 (86) 115/54 (74) 138/61 (86) Pulse Ox 92 99 96 O2 Delivery Room Air Room Air Room Air Room Air 12/03/16 12/03/16 12/03/16 12/03/16 03:00 04:00 04:00 05:17 Temp 97.4 97.4 Pulse 82 86 88 Resp 13 21 21 B/P (MAP) 146/62 (90) 134/65 (88) 130/62 (84) Pulse Ox 98 98 97 O2 Delivery Room Air Room Air Room Air Room Air 12/03/16 12/03/16 12/03/16 12/03/16 06:00 07:14 08:00 08:48 Temp 99.0 99.0 98.7 99.0 99.0 98.7 Pulse 80 84 87 88 Resp 12 18 12 12 B/P (MAP) 129/61 (83) 137/80 (99) 133/58 (83) 136/63 (87) Pulse Ox 100 100 99 99 O2 Delivery Room Air Room Air Room Air Room Air Intake and Output 12/02/16 12/02/16 12/03/16 15:00 23:00 07:00 Intake Total 541 ml 415 ml 200 ml Output Total 2000 ml 0 ml Balance 541 ml -1585 ml 200 ml SARAH CASTELLON MD Dec 03, 2016 09:19
--- NOTE | 2016-12-03 13:09 | PDOC ---
G I PROGRESS NOTE Reason for Follow-up Hematemesis/acute blood loss anemia Subjective Hungry Physical Exam Lungs clear CV S1 S2 ABD +BS, soft, nontender Review of Relevant I have reviewed the following items tomas (where applicable) has been applied. Labs Laboratory Tests Test 12/01/16 15:50 12/01/16 21:45 12/02/16 04:00 12/02/16 09:05 White Blood Count 18.8 x10^3/uL (4.0-11.0) 20.7 x10^3/uL (4.0-11.0) 19.3 x10^3/uL (4.0-11.0) Red Blood Count 3.36 x10^6/uL (4.30-5.70) 3.12 x10^6/uL (4.30-5.70) 2.68 x10^6/uL (4.30-5.70) Hemoglobin 9.8 g/dL (13.0-17.5) 8.8 g/dL (13.0-17.5) 7.7 g/dL (13.0-17.5) Hematocrit 29.8 % (39.0-53.0) 26.5 % (39.0-53.0) 23.1 % (39.0-53.0) Mean Corpuscular Volume 89 fL (79-100) 85 fL (79-100) 86 fL (79-100) Mean Corpuscular Hemoglobin 29 pg (25-35) 28 pg (25-35) 29 pg (25-35) Mean Corpuscular Hemoglobin Concent 33 g/dL (31-37) 33 g/dL (31-37) 33 g/dL (31-37) Red Cell Distribution Width 17.2 % (11.5-14.5) 17.5 % (11.5-14.5) 17.1 % (11.5-14.5) Platelet Count 100 x10^3/uL (140-400) 115 x10^3/uL (140-400) 105 x10^3/uL (140-400) Neutrophils (%) (Auto) 78 % (31-73) Lymphocytes (%) (Auto) 12 % (24-48) Monocytes (%) (Auto) 8 % (0-9) Eosinophils (%) (Auto) 1 % (0-3) Basophils (%) (Auto) 1 % (0-3) Neutrophils # (Auto) 15.1 x10^3uL (1.8-7.7) Lymphocytes # (Auto) 2.4 x10^3/uL (1.0-4.8) Monocytes # (Auto) 1.5 x10^3/uL (0.0-1.1) Eosinophils # (Auto) 0.2 x10^3/uL (0.0-0.7) Basophils # (Auto) 0.1 x10^3/uL (0.0-0.2) Sodium Level 140 mmol/L (136-145) Potassium Level 5.2 mmol/L (3.5-5.1) Chloride Level 107 mmol/L (98-107) Carbon Dioxide Level 23 mmol/L (21-32) Anion Gap 10 (6-14) Blood Urea Nitrogen 100 mg/dL (8-26) Creatinine 11.0 mg/dL (0.7-1.3) Estimated GFR (Cockcroft-Gault) 5.8 BUN/Creatinine Ratio 9 (6-20) Glucose Level 117 mg/dL (70-99) Calcium Level 6.3 mg/dL (8.5-10.1) Total Bilirubin 0.2 mg/dL (0.2-1.0) Aspartate Amino Transf (AST/SGOT) 11 U/L (15-37) Alanine Aminotransferase (ALT/SGPT) 12 U/L (16-63) Alkaline Phosphatase 32 U/L (46-116) Total Protein 5.0 g/dL (6.4-8.2) Albumin 2.1 g/dL (3.4-5.0) Albumin/Globulin Ratio 0.7 (1.0-1.7) Hepatitis B Surface Antibody Reactive (.) Hepatitis B Surface Antigen Negative (Negative) Test 12/03/16 07:30 White Blood Count 17.2 x10^3/uL (4.0-11.0) Red Blood Count 2.75 x10^6/uL (4.30-5.70) Hemoglobin 7.9 g/dL (13.0-17.5) Hematocrit 23.5 % (39.0-53.0) Mean Corpuscular Volume 86 fL (79-100) Mean Corpuscular Hemoglobin 29 pg (25-35) Mean Corpuscular Hemoglobin Concent 34 g/dL (31-37) Red Cell Distribution Width 16.8 % (11.5-14.5) Platelet Count 119 x10^3/uL (140-400) Sodium Level 140 mmol/L (136-145) Potassium Level 3.9 mmol/L (3.5-5.1) Chloride Level 102 mmol/L (98-107) Carbon Dioxide Level 28 mmol/L (21-32) Anion Gap 10 (6-14) Blood Urea Nitrogen 56 mg/dL (8-26) Creatinine 9.5 mg/dL (0.7-1.3) Estimated GFR (Cockcroft-Gault) 6.8 Glucose Level 88 mg/dL (70-99) Calcium Level 7.0 mg/dL (8.5-10.1) Laboratory Tests Test 12/03/16 07:30 White Blood Count 17.2 x10^3/uL (4.0-11.0) Red Blood Count 2.75 x10^6/uL (4.30-5.70) Hemoglobin 7.9 g/dL (13.0-17.5) Hematocrit 23.5 % (39.0-53.0) Mean Corpuscular Volume 86 fL (79-100) Mean Corpuscular Hemoglobin 29 pg (25-35) Mean Corpuscular Hemoglobin Concent 34 g/dL (31-37) Red Cell Distribution Width 16.8 % (11.5-14.5) Platelet Count 119 x10^3/uL (140-400) Sodium Level 140 mmol/L (136-145) Potassium Level 3.9 mmol/L (3.5-5.1) Chloride Level 102 mmol/L (98-107) Carbon Dioxide Level 28 mmol/L (21-32) Anion Gap 10 (6-14) Blood Urea Nitrogen 56 mg/dL (8-26) Creatinine 9.5 mg/dL (0.7-1.3) Estimated GFR (Cockcroft-Gault) 6.8 Glucose Level 88 mg/dL (70-99) Calcium Level 7.0 mg/dL (8.5-10.1) Medications Current Medications Sodium Chloride 1,000 ml @ 1,000 mls/hr 1X ONCE IV Last administered on 20:06; Start 11/30/16 at 20:00; Stop 11/30/16 at 20:59; Status DC Pantoprazole Sodium (Protonix Vial) 80 mg 1X ONCE IVP Last administered on 11/30 20:05; Start 11/30/16 at 20:00; Stop 11/30/16 at 20:01; Status DC Pantoprazole Sodium 80 mg/ Sodium Chloride 100 ml @ 10 mls/hr Q10H IV Last administered on 12/03/16 05:21; Start 11/30/16 at 20:00 Ondansetron HCl (Zofran) 8 mg 1X ONCE IV Last administered on 11/30/16 20:15; Start 11/30/16 at 20:30; Stop 11/30/16 at 20:31; Status DC Fentanyl Citrate (Fentanyl 2ml Vial) 50 mcg 1X ONCE IV Last administered on 20:16; Start 11/30/16 at 20:30; Stop 11/30/16 at 20:31; Status DC Iohexol (Omnipaque 300 Mg/ml) 75 ml 1X ONCE IV Last administered on 11/30/16 21:16; Start 11/30/16 at 21:00; Stop 11/30/16 at 21:01; Status DC Info (Do NOT chart on this entry -- for MONITORING) 1 each PRN DAILY PRN MC SEE COMMENTS; Start 11/30/16 at 20:45; Stop 12/02/16 at 20:44; Status DC Metoclopramide HCl (Reglan) 10 mg 1X ONCE IV Last administered on 11/30/16 22: 46; Start 11/30/16 at 21:30; Stop 11/30/16 at 21:31; Status DC Ondansetron HCl (Zofran) 4 mg PRN Q8HRS PRN IV NAUSEA/VOMITING; Start 11/30/16 at 21:45; Stop 12/01/16 at 21:44; Status DC Sodium Chloride 1,000 ml @ 150 mls/hr Q6H40M IV Last administered on 12/01/16 05:44; Start 11/30/16 at 22:00; Stop 12/01/16 at 21:59; Status DC Pneumococcal Polyvalent Vaccine (Do NOT chart on this placeholder) 1 each 1X ONCE MC ; Start 12/01/16 at 09:00; Stop 12/01/16 at 09:01; Status UNV Pneumococcal Polyvalent Vaccine (Pneumovax 23) 0.5 ml ONCE ONCE VAX IM ; Start 12/01/16 at 09:00; Stop 12/01/16 at 09:01; Status DC Norepinephrine Bitartrate 250 ml @ As Directed STK-MED ONCE IV ; Start 12/01/16 at 03:40; Stop 12/01/16 at 03:41; Status DC Norepinephrine Bitartrate 250 ml @ 0 mls/hr CONT PRN IV SEE I/O RECORD Last administered on 12/01/16t 04:32; Start 12/01/16 at 04:15 Morphine Sulfate 2 mg PRN Q2HR PRN IV SEVERE PAIN Last administered on t 08:31; Start 12/01/16 at 06:15 Epinephrine HCl (EPINEPHrine SYRINGE) 1 mg STK-MED ONCE .ROUTE ; Start 12/01/16 at 10:42; Stop 12/01/16 at 10:43; Status DC Iohexol (Omnipaque 300 Mg/ml) 100 ml STK-MED ONCE .ROUTE ; Start 12/01/16 at 12: 33; Stop 12/01/16 at 12:34; Status DC Lidocaine/Sodium Bicarbonate (Buffered Lidocaine 1%) 20 ml STK-MED ONCE IJ ; Start 12/01/16 at 12:34; Stop 12/01/16 at 12:35; Status DC Heparin Sodium/ Sodium Chloride 1,500 ml @ As Directed STK-MED ONCE .ROUTE ; Start 12/01/16 at 12:34; Stop 12/01/16 at 12:35; Status DC Midazolam HCl (Versed) 5 mg STK-MED ONCE .ROUTE ; Start 12/01/16 at 14:09; Stop 12/01/16 at 14:10; Status DC Fentanyl Citrate (Fentanyl 2ml Vial) 100 mcg STK-MED ONCE .ROUTE ; Start at 14:09; Stop 12/01/16 at 14:10; Status DC Iohexol (Omnipaque 300 Mg/ml) 100 ml STK-MED ONCE .ROUTE ; Start 12/01/16 at 14: 38; Stop 12/01/16 at 14:39; Status DC Heparin Sodium/ Sodium Chloride 1,000 unit 1X ONCE IART Last administered on 15:19; Start 12/01/16 at 14:45; Stop 12/01/16 at 14:51; Status DC Heparin Sodium/ Sodium Chloride 1,000 unit 1X ONCE IART Last administered on 15:20; Start 12/01/16 at 14:45; Stop 12/01/16 at 14:52; Status DC Lidocaine/Sodium Bicarbonate (Buffered Lidocaine 1%) 20 ml 1X ONCE IJ Last administered on 12/01/16 15:18; Start 12/01/16 at 14:45; Stop 12/01/16 at 14:51; Status DC Midazolam HCl (Versed) 5 mg 1X ONCE IV Last administered on 12/01/16 15:17; Start 12/01/16 at 14:45; Stop 12/01/16 at 14:51; Status DC Fentanyl Citrate (Fentanyl 2ml Vial) 100 mcg 1X ONCE IV Last administered on 15:18; Start 12/01/16 at 14:45; Stop 12/01/16 at 14:51; Status DC Iohexol (Omnipaque 300 Mg/ml) 100 ml 1X ONCE IART Last administered on 15:18; Start 12/01/16 at 14:45; Stop 12/01/16 at 14:51; Status DC Propofol 40 ml @ As Directed STK-MED ONCE IV ; Start 12/01/16 at 16:47; Stop 12/01 at 16:48; Status DC Lidocaine HCl (Xylocaine-Mpf 1% Vial) 5 ml STK-MED ONCE .ROUTE ; Start 12/01/16 at 16:47; Stop 12/01/16 at 16:48; Status DC Phytonadione 10 mg/Sodium Chloride 51 ml @ 102 mls/hr 1X ONCE IV Last administered on 12/02/16 14:14; Start 12/02/16 at 10:00; Stop 12/02/16 at 10:29; Status DC Sodium Chloride 1,000 ml @ 1,000 mls/hr Q1H PRN IV hypotension; Start 12/02/16 at 09:54; Stop 12/02/16 at 15:53; Status DC Sodium Chloride 1,000 ml @ 400 mls/hr Q2H30M PRN IV PATENCY; Start 12/02/16 at 09:54; Stop 12/02/16 at 21:53; Status DC Info (PHARMACY MONITORING -- do not chart) 1 each PRN DAILY PRN MC SEE COMMENTS ; Start 12/02/16 at 10:00; Status UNV Info (PHARMACY MONITORING -- do not chart) 1 each PRN DAILY PRN MC SEE COMMENTS ; Start 12/02/16 at 10:00 Saliva Substitute (Biotene Moisturizing Mouth) 2 spray PRN Q15MIN PRN PO DRY MOUTH Last administered on 12/02/16t 11:49; Start 12/02/16 at 10:45 Active Scripts Active Reported Iron 18 Mg Tablet 65 Mg PO Tramadol Hcl 50 Mg Tablet 50 Mg PO TID Amlodipine Besylate 10 Mg Tablet 10 Mg PO DAILY Clonidine Hcl 0.1 Mg Tablet 0.1 Mg PO BID Carvedilol 12.5 Mg Tablet 12.5 Mg PO BID Vitals/I & O Vital Sign - Last 24 Hours 12/02/16 12/02/16 12/02/16 12/02/16 14:00 15:00 16:01 16:06 Pulse 94 87 101 Resp 13 16 B/P (MAP) 152/79 (103) 128/69 (88) 131/75 (93) Pulse Ox 100 100 100 O2 Delivery Room Air Nasal Cannula Nasal Cannula Nasal Cannula O2 Flow Rate 2.0 2.0 2.0 12/02/16 12/02/16 12/02/16 12/02/16 17:06 17:14 19:00 19:50 Temp 98.9 98.9 Pulse 99 98 Resp 24 B/P (MAP) 121/68 (85) 123/70 (87) Pulse Ox 86 98 96 O2 Delivery Room Air Room Air Room Air Room Air 12/02/16 12/02/16 12/02/16 12/02/16 20:00 21:14 22:00 23:00 Temp 98.8 98.8 Pulse 88 95 98 98 Resp 15 17 16 20 B/P (MAP) 139/77 (97) 153/89 (110) 151/86 (107) 142/71 (94) Pulse Ox 95 98 93 97 O2 Delivery Room Air Room Air Room Air Room Air 12/03/16 12/03/16 12/03/16 12/03/16 00:05 00:05 01:00 02:00 Temp 99.4 99.4 Pulse 95 86 96 Resp 20 12 16 B/P (MAP) 124/67 (86) 115/54 (74) 138/61 (86) Pulse Ox 92 99 96 O2 Delivery Room Air Room Air Room Air Room Air 12/03/16 12/03/16 12/03/16 12/03/16 03:00 04:00 04:00 05:17 Temp 97.4 97.4 Pulse 82 86 88 Resp 13 21 21 B/P (MAP) 146/62 (90) 134/65 (88) 130/62 (84) Pulse Ox 98 98 97 O2 Delivery Room Air Room Air Room Air Room Air 12/03/16 12/03/16 12/03/16 12/03/16 06:00 07:14 08:00 08:48 Temp 99.0 99.0 98.7 99.0 99.0 98.7 Pulse 80 84 87 88 Resp 12 18 12 12 B/P (MAP) 129/61 (83) 137/80 (99) 133/58 (83) 136/63 (87) Pulse Ox 100 100 99 99 O2 Delivery Room Air Room Air Room Air Room Air 12/03/16 12/03/16 12/03/16 10:05 11:13 12:01 Temp 97.9 97.9 Pulse 84 Resp 16 B/P (MAP) 132/74 (93) Pulse Ox 100 O2 Delivery Room Air Room Air Room Air Intake and Output 12/02/16 12/02/16 12/03/16 15:00 23:00 07:00 Intake Total 541 ml 415 ml 200 ml Output Total 2000 ml 0 ml Balance 541 ml -1585 ml 200 ml Problem List Hematemesis- with acute blood loss anemia,. most likely secondary to , Hg stable, will advance diet and reassess MIMI CLEARY MD Dec 03, 2016 13:09
[2016-12-03] MEDS ORDERED: amLODIPine BESYLATE 10 MG TABLET PO SCH (16:30)
[2016-12-03] MEDS: PANTOPRAZOLE 40 MG TABLET.DR. PO SCH (16:50)
[2016-12-03] MEDS ORDERED: CARVEDILOL 12.5 MG TABLET. PO SCH (17:00)
[2016-12-03] MEDS ORDERED: CARV25TA2 PO (17:24)
[2016-12-03] MEDS ORDERED: CARVEDILOL 12.5 MG TABLET. PO ONE (17:30)
[2016-12-03] MEDS ORDERED: traMADol 50 MG TABLET PO SCH (21:00)
[2016-12-03] MEDS ORDERED: traMADol 50 MG TABLET PO PRN (21:00)
[2016-12-03] MEDS ORDERED: cloNIDine HCL 0.1 MG TABLET PO SCH (21:00)
[2016-12-04 03:00] VITALS: BP 130/70
[2016-12-04 04:12] LABS: BASO # 0.1 x10^3/uL (0.0-0.2); BASO % 1 % (0-3); EOS % 3 % (0-3); HEMATOCRIT 22.5 % (39.0-53.0); HEMOGLOBIN 7.6 g/dL (13.0-17.5); LYMPH # 2.3 x10^3/uL (1.0-4.8); LYMPH % 17 % (24-48); MEAN CORPUSCULAR HEMOGLOBIN 29 pg (25-35); MEAN CORPUSCULAR HGB CONC 34 g/dL (31-37); MEAN CORPUSCULAR VOLUME 86 fL (79-100); MONO % 7 % (0-9); NEUT % 74 % (31-73); PLATELET COUNT 125 x10^3/uL (140-400); RED BLOOD COUNT 2.61 x10^6/uL (4.30-5.70); RED CELL DISTRIBUTION WIDTH 17.1 % (11.5-14.5)
[2016-12-04 04:28] LABS: CALCIUM 6.2 mg/dL (8.5-10.1); CREATININE 11.3 mg/dL (0.7-1.3); GFR 5.6; POTASSIUM 3.9 mmol/L (3.5-5.1)
[2016-12-04 07:45] VITALS: BP 149/86
[2016-12-04] MEDS: PANTOPRAZOLE 40 MG TABLET.DR. PO SCH ×2 (08:18→16:57)
[2016-12-04] MEDS: CARVEDILOL 12.5 MG TABLET. PO SCH ×2 (08:20→17:00)
[2016-12-04 11:15] VITALS: BP 135/78
--- NOTE | 2016-12-04 11:29 | PDOC3 ---
Discharge Summary Visit Information Date of Admission: Nov 30, 2016 Date of Discharge: Dec 04, 2016 Admitting Diagnosis Comment: ACute blood loss anemia GI bleed, Upper, s/p EGD on admit, clips, IR attempted to coil, not fully successful htn,, recently hypotensive, s/p fluid boluses s ESRD, HD yesterday thrombocytpenia Brief Hospital Course Allergies Allergies Coded Allergies Type Severity Reaction Last Updated Verified No Known Drug Allergies 08/27/13 No Vital Signs Vital Signs Date Time Temp Pulse Resp B/P (MAP) Pulse Ox O2 Delivery O2 Flow Rate FiO2 12/04/16 11:15 97.7 84 16 135/78 (97) 99 Room Air 97.7 Lab Results Laboratory Tests Test 12/03/16 07:30 12/04/16 03:25 White Blood Count 17.2 x10^3/uL (4.0-11.0) 14.0 x10^3/uL (4.0-11.0) Red Blood Count 2.75 x10^6/uL (4.30-5.70) 2.61 x10^6/uL (4.30-5.70) Hemoglobin 7.9 g/dL (13.0-17.5) 7.6 g/dL (13.0-17.5) Hematocrit 23.5 % (39.0-53.0) 22.5 % (39.0-53.0) Mean Corpuscular Volume 86 fL (79-100) 86 fL (79-100) Mean Corpuscular Hemoglobin 29 pg (25-35) 29 pg (25-35) Mean Corpuscular Hemoglobin Concent 34 g/dL (31-37) 34 g/dL (31-37) Red Cell Distribution Width 16.8 % (11.5-14.5) 17.1 % (11.5-14.5) Platelet Count 119 x10^3/uL (140-400) 125 x10^3/uL (140-400) Sodium Level 140 mmol/L (136-145) 136 mmol/L (136-145) Potassium Level 3.9 mmol/L (3.5-5.1) 3.9 mmol/L (3.5-5.1) Chloride Level 102 mmol/L (98-107) 100 mmol/L (98-107) Carbon Dioxide Level 28 mmol/L (21-32) 26 mmol/L (21-32) Anion Gap 10 (6-14) 10 (6-14) Blood Urea Nitrogen 56 mg/dL (8-26) 67 mg/dL (8-26) Creatinine 9.5 mg/dL (0.7-1.3) 11.3 mg/dL (0.7-1.3) Estimated GFR (Cockcroft-Gault) 6.8 5.6 Glucose Level 88 mg/dL (70-99) 106 mg/dL (70-99) Calcium Level 7.0 mg/dL (8.5-10.1) 6.2 mg/dL (8.5-10.1) Neutrophils (%) (Auto) 74 % (31-73) Lymphocytes (%) (Auto) 17 % (24-48) Monocytes (%) (Auto) 7 % (0-9) Eosinophils (%) (Auto) 3 % (0-3) Basophils (%) (Auto) 1 % (0-3) Neutrophils # (Auto) 10.3 x10^3uL (1.8-7.7) Lymphocytes # (Auto) 2.3 x10^3/uL (1.0-4.8) Monocytes # (Auto) 1.0 x10^3/uL (0.0-1.1) Eosinophils # (Auto) 0.4 x10^3/uL (0.0-0.7) Basophils # (Auto) 0.1 x10^3/uL (0.0-0.2) Laboratory Tests Test 12/04/16 03:25 White Blood Count 14.0 x10^3/uL (4.0-11.0) Red Blood Count 2.61 x10^6/uL (4.30-5.70) Hemoglobin 7.6 g/dL (13.0-17.5) Hematocrit 22.5 % (39.0-53.0) Mean Corpuscular Volume 86 fL (79-100) Mean Corpuscular Hemoglobin 29 pg (25-35) Mean Corpuscular Hemoglobin Concent 34 g/dL (31-37) Red Cell Distribution Width 17.1 % (11.5-14.5) Platelet Count 125 x10^3/uL (140-400) Neutrophils (%) (Auto) 74 % (31-73) Lymphocytes (%) (Auto) 17 % (24-48) Monocytes (%) (Auto) 7 % (0-9) Eosinophils (%) (Auto) 3 % (0-3) Basophils (%) (Auto) 1 % (0-3) Neutrophils # (Auto) 10.3 x10^3uL (1.8-7.7) Lymphocytes # (Auto) 2.3 x10^3/uL (1.0-4.8) Monocytes # (Auto) 1.0 x10^3/uL (0.0-1.1) Eosinophils # (Auto) 0.4 x10^3/uL (0.0-0.7) Basophils # (Auto) 0.1 x10^3/uL (0.0-0.2) Sodium Level 136 mmol/L (136-145) Potassium Level 3.9 mmol/L (3.5-5.1) Chloride Level 100 mmol/L (98-107) Carbon Dioxide Level 26 mmol/L (21-32) Anion Gap 10 (6-14) Blood Urea Nitrogen 67 mg/dL (8-26) Creatinine 11.3 mg/dL (0.7-1.3) Estimated GFR (Cockcroft-Gault) 5.6 Glucose Level 106 mg/dL (70-99) Calcium Level 6.2 mg/dL (8.5-10.1) Brief Hospital Course Mr. Pete is a 61 old AA male admitted to ICU for hematemesis and BRBPR, to ICU bec was also hypotensive,w as taking ASa 325 at home coremaker, EGD done with endoclipping, better, Tolerating PO renal Diet, ESRD on HD TTHS, baseline hgb 7 , hgb on dc is 7 plus PT seen and examined COunselled, Dc time 32 mins cumulative, 50% educn and counselling COnsults; GI PRoc: EGD and endoclipping Discharge Information Condition at Discharge: Improved, Stable Disposition/Orders: D/C to Home Scheduled Carvedilol (Carvedilol), 1 TAB PO BID, (Reported) Tramadol Hcl (Tramadol Hcl), 50 MG PO TID, (Reported) Discontinued Medications Amlodipine Besylate (Amlodipine Besylate), 10 MG PO DAILY, (Reported) Carvedilol (Carvedilol), 12.5 MG PO BID, (Reported) Clonidine Hcl (Clonidine Hcl), 0.1 MG PO BID, (Reported) Iron (Iron), 65 MG PO, (Reported) LORI MATHIAS MD Dec 04, 2016 11:29
--- NOTE | 2016-12-04 12:10 | PDOC ---
Renal-Progress Notes Subjective Notes Notes NONE History of Present Illness Hx of present illness NO CHANGE Vitals Vitals Vital Signs Date Time Temp Pulse Resp B/P (MAP) Pulse Ox O2 Delivery O2 Flow Rate FiO2 12/04/16 11:15 97.7 84 16 135/78 (97) 99 Room Air 97.7 Weight Weight [ ] I.O. Intake and Output Intake and Output 12/04/16 07:00 Intake Total 700 ml Balance 700 ml Intake Oral 700 ml # Voids 1 # Bowel Movements 1 Labs Labs Laboratory Tests Test 12/04/16 03:25 White Blood Count 14.0 x10^3/uL (4.0-11.0) Red Blood Count 2.61 x10^6/uL (4.30-5.70) Hemoglobin 7.6 g/dL (13.0-17.5) Hematocrit 22.5 % (39.0-53.0) Mean Corpuscular Volume 86 fL (79-100) Mean Corpuscular Hemoglobin 29 pg (25-35) Mean Corpuscular Hemoglobin Concent 34 g/dL (31-37) Red Cell Distribution Width 17.1 % (11.5-14.5) Platelet Count 125 x10^3/uL (140-400) Neutrophils (%) (Auto) 74 % (31-73) Lymphocytes (%) (Auto) 17 % (24-48) Monocytes (%) (Auto) 7 % (0-9) Eosinophils (%) (Auto) 3 % (0-3) Basophils (%) (Auto) 1 % (0-3) Neutrophils # (Auto) 10.3 x10^3uL (1.8-7.7) Lymphocytes # (Auto) 2.3 x10^3/uL (1.0-4.8) Monocytes # (Auto) 1.0 x10^3/uL (0.0-1.1) Eosinophils # (Auto) 0.4 x10^3/uL (0.0-0.7) Basophils # (Auto) 0.1 x10^3/uL (0.0-0.2) Sodium Level 136 mmol/L (136-145) Potassium Level 3.9 mmol/L (3.5-5.1) Chloride Level 100 mmol/L (98-107) Carbon Dioxide Level 26 mmol/L (21-32) Anion Gap 10 (6-14) Blood Urea Nitrogen 67 mg/dL (8-26) Creatinine 11.3 mg/dL (0.7-1.3) Estimated GFR (Cockcroft-Gault) 5.6 Glucose Level 106 mg/dL (70-99) Calcium Level 6.2 mg/dL (8.5-10.1) Review of Systems Constitutional: yes: alert, oriented Ears/Nose/Throat: Yes: no symptom reported Pulmonary: Yes no symptom reported Cardiovascular: Yes no symptom reported Gastrointestional: Yes: no symptom reported Genitourinary: Yes: no symptom reported Musculoskeletal: Yes: muscle stiffness Skin: Yes no symptom reported Psychiatric/Neurological: Yes: no symptom reported Endocrine: Yes: no symptom reported Physical Exam General Appearance: no apparent distress Skin: warm Respiratory: bilateral CTA Heart: S1S2, RRR Abdomen: soft, bowel sounds present Genitourinary: bladder flat Extremities: pulses present Neurology: alert Assessment Assessment IMP ESRD ANEMIA HEMATEMESIS PLAN HD TOMORROW GI EVAL AND TX START KEITH ARANDA MD Dec 04, 2016 12:10
--- NOTE | 2016-12-04 14:43 | PDOC ---
G I PROGRESS NOTE Subjective No complaints. No reports of any signs of active bleeding. Physical Exam Lungs clear. RRR Abdomen soft, not tender nor distended. Review of Relevant I have reviewed the following items tomas (where applicable) has been applied. Labs Laboratory Tests Test 12/03/16 07:30 12/04/16 03:25 White Blood Count 17.2 x10^3/uL (4.0-11.0) 14.0 x10^3/uL (4.0-11.0) Red Blood Count 2.75 x10^6/uL (4.30-5.70) 2.61 x10^6/uL (4.30-5.70) Hemoglobin 7.9 g/dL (13.0-17.5) 7.6 g/dL (13.0-17.5) Hematocrit 23.5 % (39.0-53.0) 22.5 % (39.0-53.0) Mean Corpuscular Volume 86 fL (79-100) 86 fL (79-100) Mean Corpuscular Hemoglobin 29 pg (25-35) 29 pg (25-35) Mean Corpuscular Hemoglobin Concent 34 g/dL (31-37) 34 g/dL (31-37) Red Cell Distribution Width 16.8 % (11.5-14.5) 17.1 % (11.5-14.5) Platelet Count 119 x10^3/uL (140-400) 125 x10^3/uL (140-400) Sodium Level 140 mmol/L (136-145) 136 mmol/L (136-145) Potassium Level 3.9 mmol/L (3.5-5.1) 3.9 mmol/L (3.5-5.1) Chloride Level 102 mmol/L (98-107) 100 mmol/L (98-107) Carbon Dioxide Level 28 mmol/L (21-32) 26 mmol/L (21-32) Anion Gap 10 (6-14) 10 (6-14) Blood Urea Nitrogen 56 mg/dL (8-26) 67 mg/dL (8-26) Creatinine 9.5 mg/dL (0.7-1.3) 11.3 mg/dL (0.7-1.3) Estimated GFR (Cockcroft-Gault) 6.8 5.6 Glucose Level 88 mg/dL (70-99) 106 mg/dL (70-99) Calcium Level 7.0 mg/dL (8.5-10.1) 6.2 mg/dL (8.5-10.1) Neutrophils (%) (Auto) 74 % (31-73) Lymphocytes (%) (Auto) 17 % (24-48) Monocytes (%) (Auto) 7 % (0-9) Eosinophils (%) (Auto) 3 % (0-3) Basophils (%) (Auto) 1 % (0-3) Neutrophils # (Auto) 10.3 x10^3uL (1.8-7.7) Lymphocytes # (Auto) 2.3 x10^3/uL (1.0-4.8) Monocytes # (Auto) 1.0 x10^3/uL (0.0-1.1) Eosinophils # (Auto) 0.4 x10^3/uL (0.0-0.7) Basophils # (Auto) 0.1 x10^3/uL (0.0-0.2) Laboratory Tests Test 12/04/16 03:25 White Blood Count 14.0 x10^3/uL (4.0-11.0) Red Blood Count 2.61 x10^6/uL (4.30-5.70) Hemoglobin 7.6 g/dL (13.0-17.5) Hematocrit 22.5 % (39.0-53.0) Mean Corpuscular Volume 86 fL (79-100) Mean Corpuscular Hemoglobin 29 pg (25-35) Mean Corpuscular Hemoglobin Concent 34 g/dL (31-37) Red Cell Distribution Width 17.1 % (11.5-14.5) Platelet Count 125 x10^3/uL (140-400) Neutrophils (%) (Auto) 74 % (31-73) Lymphocytes (%) (Auto) 17 % (24-48) Monocytes (%) (Auto) 7 % (0-9) Eosinophils (%) (Auto) 3 % (0-3) Basophils (%) (Auto) 1 % (0-3) Neutrophils # (Auto) 10.3 x10^3uL (1.8-7.7) Lymphocytes # (Auto) 2.3 x10^3/uL (1.0-4.8) Monocytes # (Auto) 1.0 x10^3/uL (0.0-1.1) Eosinophils # (Auto) 0.4 x10^3/uL (0.0-0.7) Basophils # (Auto) 0.1 x10^3/uL (0.0-0.2) Sodium Level 136 mmol/L (136-145) Potassium Level 3.9 mmol/L (3.5-5.1) Chloride Level 100 mmol/L (98-107) Carbon Dioxide Level 26 mmol/L (21-32) Anion Gap 10 (6-14) Blood Urea Nitrogen 67 mg/dL (8-26) Creatinine 11.3 mg/dL (0.7-1.3) Estimated GFR (Cockcroft-Gault) 5.6 Glucose Level 106 mg/dL (70-99) Calcium Level 6.2 mg/dL (8.5-10.1) Medications Current Medications Sodium Chloride 1,000 ml @ 1,000 mls/hr 1X ONCE IV Last administered on 20:06; Start 11/30/16 at 20:00; Stop 11/30/16 at 20:59; Status DC Pantoprazole Sodium (Protonix Vial) 80 mg 1X ONCE IVP Last administered on 11/30 20:05; Start 11/30/16 at 20:00; Stop 11/30/16 at 20:01; Status DC Pantoprazole Sodium 80 mg/ Sodium Chloride 100 ml @ 10 mls/hr Q10H IV Last administered on 12/03/16 05:21; Start 11/30/16 at 20:00; Stop 12/03/16 at 16:27; Status DC Ondansetron HCl (Zofran) 8 mg 1X ONCE IV Last administered on 11/30/16 20:15; Start 11/30/16 at 20:30; Stop 11/30/16 at 20:31; Status DC Fentanyl Citrate (Fentanyl 2ml Vial) 50 mcg 1X ONCE IV Last administered on 20:16; Start 11/30/16 at 20:30; Stop 11/30/16 at 20:31; Status DC Iohexol (Omnipaque 300 Mg/ml) 75 ml 1X ONCE IV Last administered on 11/30/16 21:16; Start 11/30/16 at 21:00; Stop 11/30/16 at 21:01; Status DC Info (Do NOT chart on this entry -- for MONITORING) 1 each PRN DAILY PRN MC SEE COMMENTS; Start 11/30/16 at 20:45; Stop 12/02/16 at 20:44; Status DC Metoclopramide HCl (Reglan) 10 mg 1X ONCE IV Last administered on 11/30/16 22: 46; Start 11/30/16 at 21:30; Stop 11/30/16 at 21:31; Status DC Ondansetron HCl (Zofran) 4 mg PRN Q8HRS PRN IV NAUSEA/VOMITING; Start 11/30/16 at 21:45; Stop 12/01/16 at 21:44; Status DC Sodium Chloride 1,000 ml @ 150 mls/hr Q6H40M IV Last administered on 12/01/16 05:44; Start 11/30/16 at 22:00; Stop 12/01/16 at 21:59; Status DC Pneumococcal Polyvalent Vaccine (Do NOT chart on this placeholder) 1 each 1X ONCE MC ; Start 12/01/16 at 09:00; Stop 12/01/16 at 09:01; Status UNV Pneumococcal Polyvalent Vaccine (Pneumovax 23) 0.5 ml ONCE ONCE VAX IM ; Start 12/01/16 at 09:00; Stop 12/01/16 at 09:01; Status DC Norepinephrine Bitartrate 250 ml @ As Directed STK-MED ONCE IV ; Start 12/01/16 at 03:40; Stop 12/01/16 at 03:41; Status DC Norepinephrine Bitartrate 250 ml @ 0 mls/hr CONT PRN IV SEE I/O RECORD Last administered on 12/01/16 04:32; Start 12/01/16 at 04:15; Stop 12/03/16 at 16:02; Status DC Morphine Sulfate 2 mg PRN Q2HR PRN IV SEVERE PAIN Last administered on 08:31; Start 12/01/16 at 06:15 Epinephrine HCl (EPINEPHrine SYRINGE) 1 mg STK-MED ONCE .ROUTE ; Start 12/01/16 at 10:42; Stop 12/01/16 at 10:43; Status DC Iohexol (Omnipaque 300 Mg/ml) 100 ml STK-MED ONCE .ROUTE ; Start 12/01/16 at 12: 33; Stop 12/01/16 at 12:34; Status DC Lidocaine/Sodium Bicarbonate (Buffered Lidocaine 1%) 20 ml STK-MED ONCE IJ ; Start 12/01/16 at 12:34; Stop 12/01/16 at 12:35; Status DC Heparin Sodium/ Sodium Chloride 1,500 ml @ As Directed STK-MED ONCE .ROUTE ; Start 12/01/16 at 12:34; Stop 12/01/16 at 12:35; Status DC Midazolam HCl (Versed) 5 mg STK-MED ONCE .ROUTE ; Start 12/01/16 at 14:09; Stop 12/01/16 at 14:10; Status DC Fentanyl Citrate (Fentanyl 2ml Vial) 100 mcg STK-MED ONCE .ROUTE ; Start at 14:09; Stop 12/01/16 at 14:10; Status DC Iohexol (Omnipaque 300 Mg/ml) 100 ml STK-MED ONCE .ROUTE ; Start 12/01/16 at 14: 38; Stop 12/01/16 at 14:39; Status DC Heparin Sodium/ Sodium Chloride 1,000 unit 1X ONCE IART Last administered on 15:19; Start 12/01/16 at 14:45; Stop 12/01/16 at 14:51; Status DC Heparin Sodium/ Sodium Chloride 1,000 unit 1X ONCE IART Last administered on 15:20; Start 12/01/16 at 14:45; Stop 12/01/16 at 14:52; Status DC Lidocaine/Sodium Bicarbonate (Buffered Lidocaine 1%) 20 ml 1X ONCE IJ Last administered on 12/01/16 15:18; Start 12/01/16 at 14:45; Stop 12/01/16 at 14:51; Status DC Midazolam HCl (Versed) 5 mg 1X ONCE IV Last administered on 12/01/16 15:17; Start 12/01/16 at 14:45; Stop 12/01/16 at 14:51; Status DC Fentanyl Citrate (Fentanyl 2ml Vial) 100 mcg 1X ONCE IV Last administered on 15:18; Start 12/01/16 at 14:45; Stop 12/01/16 at 14:51; Status DC Iohexol (Omnipaque 300 Mg/ml) 100 ml 1X ONCE IART Last administered on 15:18; Start 12/01/16 at 14:45; Stop 12/01/16 at 14:51; Status DC Propofol 40 ml @ As Directed STK-MED ONCE IV ; Start 12/01/16 at 16:47; Stop 12/01 at 16:48; Status DC Lidocaine HCl (Xylocaine-Mpf 1% Vial) 5 ml STK-MED ONCE .ROUTE ; Start 12/01/16 at 16:47; Stop 12/01/16 at 16:48; Status DC Phytonadione 10 mg/Sodium Chloride 51 ml @ 102 mls/hr 1X ONCE IV Last administered on 12/02/16 14:14; Start 12/02/16 at 10:00; Stop 12/02/16 at 10:29; Status DC Sodium Chloride 1,000 ml @ 1,000 mls/hr Q1H PRN IV hypotension; Start 12/02/16 at 09:54; Stop 12/02/16 at 15:53; Status DC Sodium Chloride 1,000 ml @ 400 mls/hr Q2H30M PRN IV PATENCY; Start 12/02/16 at 09:54; Stop 12/02/16 at 21:53; Status DC Info (PHARMACY MONITORING -- do not chart) 1 each PRN DAILY PRN MC SEE COMMENTS ; Start 12/02/16 at 10:00; Status UNV Info (PHARMACY MONITORING -- do not chart) 1 each PRN DAILY PRN MC SEE COMMENTS ; Start 12/02/16 at 10:00 Saliva Substitute (Biotene Moisturizing Mouth) 2 spray PRN Q15MIN PRN PO DRY MOUTH Last administered on 12/02/16 11:49; Start 12/02/16 at 10:45 Amlodipine Besylate (Norvasc) 10 mg DAILY PO Last administered on 12/03/16 17: 19; Start 12/03/16 at 16:30; Stop 12/03/16 at 17:27; Status DC Carvedilol (Coreg) 12.5 mg BIDWMEALS PO Last administered on 12/03/16 17:19; Start 12/03/16 at 17:00; Stop 12/03/16 at 17:27; Status DC Clonidine HCl (Catapres) 0.1 mg BID PO ; Start 12/03/16 at 21:00; Stop 12/03/16 at 21:00; Status DC Tramadol HCl (Ultram) 50 mg TID PO ; Start 12/03/16 at 21:00; Stop 12/03/16 at 21: 00; Status DC Pantoprazole Sodium (Protonix) 40 mg BIDAC PO Last administered on 12/04/16 08: 18; Start 12/03/16 at 16:30 Carvedilol (Coreg) 25 mg BIDWMEALS PO Last administered on 12/04/16 08:20; Start 12/04/16 at 08:00 Carvedilol (Coreg) 12.5 mg ONCE ONCE PO ; Start 12/03/16 at 17:30; Stop 12/03/16 at 17:31; Status DC Tramadol HCl (Ultram) 50 mg PRN TID PRN PO pain Last administered on 12/03/16 20:05; Start 12/03/16 at 21:00 Darbepoetin Pb (Aranesp) 60 mcg WEEKLYHS SQ ; Start 12/04/16 at 21:00 Active Scripts Active Reported Carvedilol 25 Mg Tablet 1 Tab PO BID Tramadol Hcl 50 Mg Tablet 50 Mg PO TID Vitals/I & O Vital Sign - Last 24 Hours 12/03/16 12/03/16 12/03/16 12/03/16 15:18 17:19 17:19 19:00 Temp 98.2 98.7 98.2 98.7 Pulse 98 98 98 90 Resp 18 18 B/P (MAP) 190/97 (128) 190/97 190/97 149/86 (107) Pulse Ox 100 100 O2 Delivery Room Air Room Air 12/03/16 12/03/16 12/03/16 12/04/16 20:00 20:05 23:00 03:00 Temp 97.7 98.1 97.7 98.1 Pulse 91 84 Resp 18 18 B/P (MAP) 118/62 (80) 130/70 (90) Pulse Ox 97 99 O2 Delivery Room Air Room Air Room Air Room Air 12/04/16 12/04/16 12/04/16 12/04/16 07:45 08:00 08:20 11:15 Temp 97.9 97.7 97.9 97.7 Pulse 82 82 84 Resp 16 16 B/P (MAP) 149/86 (107) 149/86 135/78 (97) Pulse Ox 99 99 O2 Delivery Room Air Room Air Room Air Intake and Output 12/03/16 12/03/16 12/04/16 15:00 23:00 07:00 Intake Total 700 ml 0 ml Balance 700 ml 0 ml Assessment Recent UGI bleed. Cause not known nor really treated other than medically. Clips I placed were done blindly in the hope I might hit the spot. I think would be preferable to assess the nature of the lesion prior to discharge. Plan of Care Note EGD tomorrow. If no major issue, could go home after. CHRISTINE MODI MD Dec 04, 2016 14:42
[2016-12-04 14:46] VITALS: BP 159/88
[2016-12-04 19:35] VITALS: BP 152/80
[2016-12-04] MEDS ORDERED: diphenhydrAMINE HCL 25 MG CAPSULE PO PRN (20:00)
[2016-12-04] MEDS ORDERED: DARBEPOETIN ALFA 60 MCG/0.3 ML DISP.SYRIN. SQ SCH (21:00)
[2016-12-04 23:40] VITALS: BP 144/81
[2016-12-05 03:40] VITALS: BP 148/85
[2016-12-05 04:43] LABS: HEMATOCRIT 22.9 % (39.0-53.0); HEMOGLOBIN 7.6 g/dL (13.0-17.5)
[2016-12-05 05:11] LABS: CALCIUM 6.1 mg/dL (8.5-10.1); CREATININE 13.4 mg/dL (0.7-1.3); GFR 4.6; POTASSIUM 4.1 mmol/L (3.5-5.1)
[2016-12-05 07:00] VITALS: BP 150/91
[2016-12-05] MEDS ORDERED: PROCHLORPERAZINE 10 MG/2 ML VIAL. IV PRN (07:00)
[2016-12-05] MEDS ORDERED: ONDANSETRON PF 4 MG/2 ML VIAL. IV PRN (07:00)
[2016-12-05] MEDS ORDERED: HYDROmorphone 2 MG/ML VIAL IV PRN (07:00)
[2016-12-05] MEDS ORDERED: MORPHINE SULFATE 2 MG/ML DISP.SYRIN. IV PRN (07:00)
[2016-12-05] MEDS ORDERED: fentaNYL PF VIAL 100 MCG/2 ML VIAL IV PRN ×2 (07:00)
[2016-12-05] MEDS ORDERED: IV RINGERS,LACTATED 1000ML 1,000 ML IV SCH (07:00)
[2016-12-05] MEDS ORDERED: LIDOCAINE 1% 1 ML SYRINGE. ID PRN (07:00)
[2016-12-05] MEDS: PANTOPRAZOLE 40 MG TABLET.DR. PO SCH (09:02)
[2016-12-05] MEDS: CARVEDILOL 12.5 MG TABLET. PO SCH (09:02)
[2016-12-05] MEDS ORDERED: IV NORMAL SALINE 1000ML BAG 1,000 ML IV ONE (11:00)
[2016-12-05] MEDS ORDERED: PROPOFOL 20 ML IV ONE (11:44)
--- NOTE | 2016-12-05 11:53 | PDOC ---
PROGRESS NOTES Chief Complaint Chief Complaint ACute blood loss anemia GI bleed, Upper, s/p EGD on admit, clips, IR attempted to coil, not fully successful htn,, recently hypotensive, s/p fluid boluses s ESRD, HD yesterday thrombocytpenia History of Present Illness History of Present Illness Out having EGD HGb 7.6 VS ok PLAn: Await from EGD and the results zacarias Vitals Vitals Vital Signs Date Time Temp Pulse Resp B/P (MAP) Pulse Ox O2 Delivery O2 Flow Rate FiO2 12/05/16 10:38 97.3 74 18 99 97.3 12/05/16 09:02 150/91 12/05/16 07:00 Room Air Physical Exam General: Alert, Cooperative, mild distress, moderate distress Abdomen: Normal bowel sounds Extremities: No clubbing Skin: No rashes Labs LABS Laboratory Tests Test 12/05/16 03:35 Hemoglobin 7.6 g/dL (13.0-17.5) Hematocrit 22.9 % (39.0-53.0) Mean Corpuscular Hemoglobin Concent 33 g/dL (31-37) Sodium Level 135 mmol/L (136-145) Potassium Level 4.1 mmol/L (3.5-5.1) Chloride Level 99 mmol/L (98-107) Carbon Dioxide Level 26 mmol/L (21-32) Anion Gap 10 (6-14) Blood Urea Nitrogen 76 mg/dL (8-26) Creatinine 13.4 mg/dL (0.7-1.3) Estimated GFR (Cockcroft-Gault) 4.6 Glucose Level 132 mg/dL (70-99) Calcium Level 6.1 mg/dL (8.5-10.1) Comment Review of Relevant I have reviewed the following items tomas (where applicable) has been applied. Labs Laboratory Tests Test 12/04/16 03:25 12/05/16 03:35 White Blood Count 14.0 x10^3/uL (4.0-11.0) Red Blood Count 2.61 x10^6/uL (4.30-5.70) Hemoglobin 7.6 g/dL (13.0-17.5) 7.6 g/dL (13.0-17.5) Hematocrit 22.5 % (39.0-53.0) 22.9 % (39.0-53.0) Mean Corpuscular Volume 86 fL (79-100) Mean Corpuscular Hemoglobin 29 pg (25-35) Mean Corpuscular Hemoglobin Concent 34 g/dL (31-37) 33 g/dL (31-37) Red Cell Distribution Width 17.1 % (11.5-14.5) Platelet Count 125 x10^3/uL (140-400) Neutrophils (%) (Auto) 74 % (31-73) Lymphocytes (%) (Auto) 17 % (24-48) Monocytes (%) (Auto) 7 % (0-9) Eosinophils (%) (Auto) 3 % (0-3) Basophils (%) (Auto) 1 % (0-3) Neutrophils # (Auto) 10.3 x10^3uL (1.8-7.7) Lymphocytes # (Auto) 2.3 x10^3/uL (1.0-4.8) Monocytes # (Auto) 1.0 x10^3/uL (0.0-1.1) Eosinophils # (Auto) 0.4 x10^3/uL (0.0-0.7) Basophils # (Auto) 0.1 x10^3/uL (0.0-0.2) Sodium Level 136 mmol/L (136-145) 135 mmol/L (136-145) Potassium Level 3.9 mmol/L (3.5-5.1) 4.1 mmol/L (3.5-5.1) Chloride Level 100 mmol/L (98-107) 99 mmol/L (98-107) Carbon Dioxide Level 26 mmol/L (21-32) 26 mmol/L (21-32) Anion Gap 10 (6-14) 10 (6-14) Blood Urea Nitrogen 67 mg/dL (8-26) 76 mg/dL (8-26) Creatinine 11.3 mg/dL (0.7-1.3) 13.4 mg/dL (0.7-1.3) Estimated GFR (Cockcroft-Gault) 5.6 4.6 Glucose Level 106 mg/dL (70-99) 132 mg/dL (70-99) Calcium Level 6.2 mg/dL (8.5-10.1) 6.1 mg/dL (8.5-10.1) Laboratory Tests Test 12/05/16 03:35 Hemoglobin 7.6 g/dL (13.0-17.5) Hematocrit 22.9 % (39.0-53.0) Mean Corpuscular Hemoglobin Concent 33 g/dL (31-37) Sodium Level 135 mmol/L (136-145) Potassium Level 4.1 mmol/L (3.5-5.1) Chloride Level 99 mmol/L (98-107) Carbon Dioxide Level 26 mmol/L (21-32) Anion Gap 10 (6-14) Blood Urea Nitrogen 76 mg/dL (8-26) Creatinine 13.4 mg/dL (0.7-1.3) Estimated GFR (Cockcroft-Gault) 4.6 Glucose Level 132 mg/dL (70-99) Calcium Level 6.1 mg/dL (8.5-10.1) Medications Current Medications Sodium Chloride 1,000 ml @ 1,000 mls/hr 1X ONCE IV Last administered on 20:06; Start 11/30/16 at 20:00; Stop 11/30/16 at 20:59; Status DC Pantoprazole Sodium (Protonix Vial) 80 mg 1X ONCE IVP Last administered on 11/30 20:05; Start 11/30/16 at 20:00; Stop 11/30/16 at 20:01; Status DC Pantoprazole Sodium 80 mg/ Sodium Chloride 100 ml @ 10 mls/hr Q10H IV Last administered on 12/03/16 05:21; Start 11/30/16 at 20:00; Stop 12/03/16 at 16:27; Status DC Ondansetron HCl (Zofran) 8 mg 1X ONCE IV Last administered on 11/30/16 20:15; Start 11/30/16 at 20:30; Stop 11/30/16 at 20:31; Status DC Fentanyl Citrate (Fentanyl 2ml Vial) 50 mcg 1X ONCE IV Last administered on 20:16; Start 11/30/16 at 20:30; Stop 11/30/16 at 20:31; Status DC Iohexol (Omnipaque 300 Mg/ml) 75 ml 1X ONCE IV Last administered on 11/30/16 21:16; Start 11/30/16 at 21:00; Stop 11/30/16 at 21:01; Status DC Info (Do NOT chart on this entry -- for MONITORING) 1 each PRN DAILY PRN MC SEE COMMENTS; Start 11/30/16 at 20:45; Stop 12/02/16 at 20:44; Status DC Metoclopramide HCl (Reglan) 10 mg 1X ONCE IV Last administered on 11/30/16 22: 46; Start 11/30/16 at 21:30; Stop 11/30/16 at 21:31; Status DC Ondansetron HCl (Zofran) 4 mg PRN Q8HRS PRN IV NAUSEA/VOMITING; Start 11/30/16 at 21:45; Stop 12/01/16 at 21:44; Status DC Sodium Chloride 1,000 ml @ 150 mls/hr Q6H40M IV Last administered on 12/01/16 05:44; Start 11/30/16 at 22:00; Stop 12/01/16 at 21:59; Status DC Pneumococcal Polyvalent Vaccine (Do NOT chart on this placeholder) 1 each 1X ONCE MC ; Start 12/01/16 at 09:00; Stop 12/01/16 at 09:01; Status UNV Pneumococcal Polyvalent Vaccine (Pneumovax 23) 0.5 ml ONCE ONCE VAX IM ; Start 12/01/16 at 09:00; Stop 12/01/16 at 09:01; Status DC Norepinephrine Bitartrate 250 ml @ As Directed STK-MED ONCE IV ; Start 12/01/16 at 03:40; Stop 12/01/16 at 03:41; Status DC Norepinephrine Bitartrate 250 ml @ 0 mls/hr CONT PRN IV SEE I/O RECORD Last administered on 12/01/16 04:32; Start 12/01/16 at 04:15; Stop 12/03/16 at 16:02; Status DC Morphine Sulfate 2 mg PRN Q2HR PRN IV SEVERE PAIN Last administered on 08:31; Start 12/01/16 at 06:15 Epinephrine HCl (EPINEPHrine SYRINGE) 1 mg STK-MED ONCE .ROUTE ; Start 12/01/16 at 10:42; Stop 12/01/16 at 10:43; Status DC Iohexol (Omnipaque 300 Mg/ml) 100 ml STK-MED ONCE .ROUTE ; Start 12/01/16 at 12: 33; Stop 12/01/16 at 12:34; Status DC Lidocaine/Sodium Bicarbonate (Buffered Lidocaine 1%) 20 ml STK-MED ONCE IJ ; Start 12/01/16 at 12:34; Stop 12/01/16 at 12:35; Status DC Heparin Sodium/ Sodium Chloride 1,500 ml @ As Directed STK-MED ONCE .ROUTE ; Start 12/01/16 at 12:34; Stop 12/01/16 at 12:35; Status DC Midazolam HCl (Versed) 5 mg STK-MED ONCE .ROUTE ; Start 12/01/16 at 14:09; Stop 12/01/16 at 14:10; Status DC Fentanyl Citrate (Fentanyl 2ml Vial) 100 mcg STK-MED ONCE .ROUTE ; Start at 14:09; Stop 12/01/16 at 14:10; Status DC Iohexol (Omnipaque 300 Mg/ml) 100 ml STK-MED ONCE .ROUTE ; Start 12/01/16 at 14: 38; Stop 12/01/16 at 14:39; Status DC Heparin Sodium/ Sodium Chloride 1,000 unit 1X ONCE IART Last administered on 15:19; Start 12/01/16 at 14:45; Stop 12/01/16 at 14:51; Status DC Heparin Sodium/ Sodium Chloride 1,000 unit 1X ONCE IART Last administered on 15:20; Start 12/01/16 at 14:45; Stop 12/01/16 at 14:52; Status DC Lidocaine/Sodium Bicarbonate (Buffered Lidocaine 1%) 20 ml 1X ONCE IJ Last administered on 12/01/16 15:18; Start 12/01/16 at 14:45; Stop 12/01/16 at 14:51; Status DC Midazolam HCl (Versed) 5 mg 1X ONCE IV Last administered on 12/01/16 15:17; Start 12/01/16 at 14:45; Stop 12/01/16 at 14:51; Status DC Fentanyl Citrate (Fentanyl 2ml Vial) 100 mcg 1X ONCE IV Last administered on 15:18; Start 12/01/16 at 14:45; Stop 12/01/16 at 14:51; Status DC Iohexol (Omnipaque 300 Mg/ml) 100 ml 1X ONCE IART Last administered on 15:18; Start 12/01/16 at 14:45; Stop 12/01/16 at 14:51; Status DC Propofol 40 ml @ As Directed STK-MED ONCE IV ; Start 12/01/16 at 16:47; Stop 12/01 at 16:48; Status DC Lidocaine HCl (Xylocaine-Mpf 1% Vial) 5 ml STK-MED ONCE .ROUTE ; Start 12/01/16 at 16:47; Stop 12/01/16 at 16:48; Status DC Phytonadione 10 mg/Sodium Chloride 51 ml @ 102 mls/hr 1X ONCE IV Last administered on 12/02/16 14:14; Start 12/02/16 at 10:00; Stop 12/02/16 at 10:29; Status DC Sodium Chloride 1,000 ml @ 1,000 mls/hr Q1H PRN IV hypotension; Start 12/02/16 at 09:54; Stop 12/02/16 at 15:53; Status DC Sodium Chloride 1,000 ml @ 400 mls/hr Q2H30M PRN IV PATENCY; Start 12/02/16 at 09:54; Stop 12/02/16 at 21:53; Status DC Info (PHARMACY MONITORING -- do not chart) 1 each PRN DAILY PRN MC SEE COMMENTS ; Start 12/02/16 at 10:00; Status UNV Info (PHARMACY MONITORING -- do not chart) 1 each PRN DAILY PRN MC SEE COMMENTS ; Start 12/02/16 at 10:00 Saliva Substitute (Biotene Moisturizing Mouth) 2 spray PRN Q15MIN PRN PO DRY MOUTH Last administered on 12/02/16 11:49; Start 12/02/16 at 10:45 Amlodipine Besylate (Norvasc) 10 mg DAILY PO Last administered on 12/03/16 17: 19; Start 12/03/16 at 16:30; Stop 12/03/16 at 17:27; Status DC Carvedilol (Coreg) 12.5 mg BIDWMEALS PO Last administered on 12/03/16 17:19; Start 12/03/16 at 17:00; Stop 12/03/16 at 17:27; Status DC Clonidine HCl (Catapres) 0.1 mg BID PO ; Start 12/03/16 at 21:00; Stop 12/03/16 at 21:00; Status DC Tramadol HCl (Ultram) 50 mg TID PO ; Start 12/03/16 at 21:00; Stop 12/03/16 at 21: 00; Status DC Pantoprazole Sodium (Protonix) 40 mg BIDAC PO Last administered on 12/05/16 09: 02; Start 12/03/16 at 16:30 Carvedilol (Coreg) 25 mg BIDWMEALS PO Last administered on 12/05/16 09:02; Start 12/04/16 at 08:00 Carvedilol (Coreg) 12.5 mg ONCE ONCE PO ; Start 12/03/16 at 17:30; Stop 12/03/16 at 17:31; Status DC Tramadol HCl (Ultram) 50 mg PRN TID PRN PO pain Last administered on 12/03/16 20:05; Start 12/03/16 at 21:00 Darbepoetin Pb (Aranesp) 60 mcg WEEKLYHS SQ Last administered on 12/04/16 20: 48; Start 12/04/16 at 21:00 Ondansetron HCl (Zofran) 4 mg PRN Q6HRS PRN IV NAUSEA/VOMITING; Start 12/05/16 at 07:00; Stop 12/05/16 at 19:00 Fentanyl Citrate (Fentanyl 2ml Vial) 25 mcg PRN Q5MIN PRN IV MILD PAIN; Start 12/05/16 at 07:00; Stop 12/05/16 at 19:00 Fentanyl Citrate (Fentanyl 2ml Vial) 50 mcg PRN Q5MIN PRN IV MODERATE PAIN; Start 12/05/16 at 07:00; Stop 12/05/16 at 19:00 Morphine Sulfate 1 mg PRN Q10MIN PRN IV SEVERE PAIN; Start 12/05/16 at 07:00; Stop 12/05/16 at 19:00 Ringer's Solution 1,000 ml @ 30 mls/hr Q24H IV ; Start 12/05/16 at 07:00; Stop 12/05/16 at 18:59 Lidocaine HCl 2 ml PRN 1X PRN ID PRIOR TO IV START; Start 12/05/16 at 07:00; Stop 12/05/16 at 19:00 Hydromorphone HCl (Dilaudid) 0.5 mg PRN Q10MIN PRN IV SEV PAIN, Second choice; Start 12/05/16 at 07:00; Stop 12/05/16 at 19:00 Prochlorperazine Edisylate (Compazine) 5 mg PACU PRN PRN IV NAUSEA, MRX1; Start 12/05/16 at 07:00; Stop 12/05/16 at 19:00 Diphenhydramine HCl (Benadryl) 50 mg PRN QHS PRN PO INSOMNIA Last administered on 12/04/16 20:48; Start 12/04/16 at 20:00 Sodium Chloride 1,000 ml @ 100 mls/hr 1X ONCE IV Last administered on 10:41; Start 12/05/16 at 11:00; Stop 12/05/16 at 20:59 Propofol 20 ml @ As Directed STK-MED ONCE IV ; Start 12/05/16 at 11:44; Stop 12/05 at 11:45; Status DC Active Scripts Active Reported Carvedilol 25 Mg Tablet 1 Tab PO BID Tramadol Hcl 50 Mg Tablet 50 Mg PO TID Vitals/I & O Vital Sign - Last 24 Hours 12/04/16 12/04/16 12/04/16 12/04/16 14:46 17:00 19:35 20:15 Temp 97.5 98.0 97.5 98.0 Pulse 79 79 75 Resp 18 18 B/P (MAP) 159/88 (111) 159/88 152/80 (104) Pulse Ox 100 100 O2 Delivery Room Air Room Air Room Air 12/04/16 12/05/16 12/05/16 12/05/16 23:40 03:40 07:00 09:02 Temp 98.3 98.2 98.2 98.3 98.2 98.2 Pulse 82 78 83 83 Resp 18 18 18 B/P (MAP) 144/81 (102) 148/85 (106) 150/91 (110) 150/91 Pulse Ox 100 98 100 O2 Delivery Room Air Room Air Room Air 12/05/16 10:38 Temp 97.3 97.3 Pulse 74 Resp 18 Pulse Ox 99 Intake and Output 12/04/16 12/04/16 12/05/16 15:00 23:00 07:00 Intake Total 900 ml 400 ml Output Total 0 ml Balance 900 ml 400 ml LORI MATHIAS MD Dec 05, 2016 11:53
--- NOTE | 2016-12-05 12:01 | PDOC4 ---
PROCEDURE Procedure EGD/biopsy Ind: recent UGI bleeding, cause? Meds: per anesthesia Findings: E--Normal. GEJ at 45cm. G--Clip posterior wall upper body (on nothing). Just distal to this on posterior wall is partly-healed ulcer w/o high risk features. Scattered erosions in antrum. Biopsies from angulus. D--Patchy erythema, bulb. Second portion normal. Chrissie. well. IMP: Small ; may have been bleeding site as in roughly the right area. Antral erosions. Retained clip. REC: Await biopsies. OK to go home on PPI for at least 6-8 weeks. F/u with me in office in 2-3 weeks. Thanks. CHRISTINE MODI MD Dec 05, 2016 12:01
--- NOTE | 2016-12-05 12:13 | PDOC ---
Renal-Progress Notes Subjective Notes Notes NO CHANGE History of Present Illness Hx of present illness STABLE Vitals Vitals Vital Signs Date Time Temp Pulse Resp B/P (MAP) Pulse Ox O2 Delivery O2 Flow Rate FiO2 12/05/16 12:03 98.4 79 16 117/56 98 Room Air 98.4 Weight Weight [ ] I.O. Intake and Output Intake and Output 12/05/16 07:00 Intake Total 1300 ml Output Total 0 ml Balance 1300 ml Intake Oral 1300 ml Output Urine Total 0 ml # Voids 6 Labs Labs Laboratory Tests Test 12/05/16 03:35 Hemoglobin 7.6 g/dL (13.0-17.5) Hematocrit 22.9 % (39.0-53.0) Mean Corpuscular Hemoglobin Concent 33 g/dL (31-37) Sodium Level 135 mmol/L (136-145) Potassium Level 4.1 mmol/L (3.5-5.1) Chloride Level 99 mmol/L (98-107) Carbon Dioxide Level 26 mmol/L (21-32) Anion Gap 10 (6-14) Blood Urea Nitrogen 76 mg/dL (8-26) Creatinine 13.4 mg/dL (0.7-1.3) Estimated GFR (Cockcroft-Gault) 4.6 Glucose Level 132 mg/dL (70-99) Calcium Level 6.1 mg/dL (8.5-10.1) Review of Systems Constitutional: yes: alert, oriented Ears/Nose/Throat: Yes: no symptom reported Pulmonary: Yes no symptom reported Cardiovascular: Yes no symptom reported Gastrointestional: Yes: no symptom reported Genitourinary: Yes: no symptom reported Musculoskeletal: Yes: muscle stiffness Skin: Yes no symptom reported Psychiatric/Neurological: Yes: no symptom reported Endocrine: Yes: no symptom reported Physical Exam General Appearance: no apparent distress Skin: warm Respiratory: bilateral CTA Heart: S1S2, RRR Abdomen: soft, bowel sounds present Genitourinary: bladder flat Extremities: pulses present Neurology: alert Assessment Assessment IMP ESRD ANEMIA HEMATEMESIS PLAN HD TODAY UF TO DW AFTER ENDOSCOPY CONT KEITH ARANDA MD Dec 05, 2016 12:13
[2016-12-05 12:30] VITALS: BP 158/68
--- NOTE | 2016-12-05 16:10 | PDOC3 ---
Discharge Summary Visit Information Date of Admission: Nov 30, 2016 Date of Discharge: Dec 04, 2016 Admitting Diagnosis Comment: ACute blood loss anemia GI bleed, Upper, s/p EGD on admit, clips, IR attempted to coil, not fully successful htn,, recently hypotensive, s/p fluid boluses s ESRD, HD yesterday thrombocytpenia Brief Hospital Course Allergies Allergies Coded Allergies Type Severity Reaction Last Updated Verified No Known Drug Allergies 12/05/16 No Vital Signs Vital Signs Date Time Temp Pulse Resp B/P (MAP) Pulse Ox O2 Delivery O2 Flow Rate FiO2 12/05/16 12:30 70 16 158/68 95 Room Air 12/05/16 12:03 98.4 98.4 Lab Results Laboratory Tests Test 12/04/16 03:25 12/05/16 03:35 White Blood Count 14.0 x10^3/uL (4.0-11.0) Red Blood Count 2.61 x10^6/uL (4.30-5.70) Hemoglobin 7.6 g/dL (13.0-17.5) 7.6 g/dL (13.0-17.5) Hematocrit 22.5 % (39.0-53.0) 22.9 % (39.0-53.0) Mean Corpuscular Volume 86 fL (79-100) Mean Corpuscular Hemoglobin 29 pg (25-35) Mean Corpuscular Hemoglobin Concent 34 g/dL (31-37) 33 g/dL (31-37) Red Cell Distribution Width 17.1 % (11.5-14.5) Platelet Count 125 x10^3/uL (140-400) Neutrophils (%) (Auto) 74 % (31-73) Lymphocytes (%) (Auto) 17 % (24-48) Monocytes (%) (Auto) 7 % (0-9) Eosinophils (%) (Auto) 3 % (0-3) Basophils (%) (Auto) 1 % (0-3) Neutrophils # (Auto) 10.3 x10^3uL (1.8-7.7) Lymphocytes # (Auto) 2.3 x10^3/uL (1.0-4.8) Monocytes # (Auto) 1.0 x10^3/uL (0.0-1.1) Eosinophils # (Auto) 0.4 x10^3/uL (0.0-0.7) Basophils # (Auto) 0.1 x10^3/uL (0.0-0.2) Sodium Level 136 mmol/L (136-145) 135 mmol/L (136-145) Potassium Level 3.9 mmol/L (3.5-5.1) 4.1 mmol/L (3.5-5.1) Chloride Level 100 mmol/L (98-107) 99 mmol/L (98-107) Carbon Dioxide Level 26 mmol/L (21-32) 26 mmol/L (21-32) Anion Gap 10 (6-14) 10 (6-14) Blood Urea Nitrogen 67 mg/dL (8-26) 76 mg/dL (8-26) Creatinine 11.3 mg/dL (0.7-1.3) 13.4 mg/dL (0.7-1.3) Estimated GFR (Cockcroft-Gault) 5.6 4.6 Glucose Level 106 mg/dL (70-99) 132 mg/dL (70-99) Calcium Level 6.2 mg/dL (8.5-10.1) 6.1 mg/dL (8.5-10.1) Laboratory Tests Test 12/05/16 03:35 Hemoglobin 7.6 g/dL (13.0-17.5) Hematocrit 22.9 % (39.0-53.0) Mean Corpuscular Hemoglobin Concent 33 g/dL (31-37) Sodium Level 135 mmol/L (136-145) Potassium Level 4.1 mmol/L (3.5-5.1) Chloride Level 99 mmol/L (98-107) Carbon Dioxide Level 26 mmol/L (21-32) Anion Gap 10 (6-14) Blood Urea Nitrogen 76 mg/dL (8-26) Creatinine 13.4 mg/dL (0.7-1.3) Estimated GFR (Cockcroft-Gault) 4.6 Glucose Level 132 mg/dL (70-99) Calcium Level 6.1 mg/dL (8.5-10.1) Brief Hospital Course Mr. Pete is a 61 old [sex] who presented with [ ] upper GI bleed, refer to dc summ done 2 days ago RPt interval EGD done, was clean, hgb stable at 7 plus, That is his baseline, ESRD on HD, Pt unfortunately left AMA before any othervdocs could see/ clear him. Left the hospital in stable condition. Discharge Information Condition at Discharge: Improved, Stable Disposition/Orders: D/C to Home Scheduled Carvedilol (Carvedilol), 1 TAB PO BID, (Reported) Tramadol Hcl (Tramadol Hcl), 50 MG PO TID, (Reported) Discontinued Medications Amlodipine Besylate (Amlodipine Besylate), 10 MG PO DAILY, (Reported) Carvedilol (Carvedilol), 12.5 MG PO BID, (Reported) Clonidine Hcl (Clonidine Hcl), 0.1 MG PO BID, (Reported) Iron (Iron), 65 MG PO, (Reported) LORI MATHIAS MD Dec 05, 2016 16:10
== END 2016-12-05 13:11 | disposition home or self-care (01) | DRG 377 ==
LOC: ER 19:30 → 1 WEST ICU 21:30 → 6 SOUTH 12-03 10:05
PROVIDERS: ADMIT Internal Medicine; ATTEND Internal Medicine
PROC: B4141ZZ Fluoroscopy of Superior Mesenteric Artery using Low Osmolar Contrast (ICD-10-PCS; 2016-12-01)
PROC: 30233N1 Transfusion of Nonautologous Red Blood Cells into Peripheral Vein, Percutaneous Approach (ICD-10-PCS; 2016-12-01)
PROC: 0W3P8ZZ Control Bleeding in Gastrointestinal Tract, Via Natural or Artificial Opening Endoscopic (ICD-10-PCS; principal; 2016-12-01 14:00)
PROC: 5A1D60Z (ICD-10-PCS; 2016-12-02)
PROC: 0DB68ZX Excision of Stomach, Via Natural or Artificial Opening Endoscopic, Diagnostic (ICD-10-PCS; 2016-12-05)
DX: K92.2 Gastrointestinal hemorrhage, unspecified (principal); N18.6 End stage renal disease; I12.0 Hypertensive chronic kidney disease with stage 5 chronic kidney disease or end stage renal disease; D62 Acute posthemorrhagic anemia; E11.22 Type 2 diabetes mellitus with diabetic chronic kidney disease; Z99.2 Dependence on renal dialysis; F12.90 Cannabis use, unspecified, uncomplicated; K25.9 Gastric ulcer, unspecified as acute or chronic, without hemorrhage or perforation; Z82.49 Family history of ischemic heart disease and other diseases of the circulatory system; D69.6 Thrombocytopenia, unspecified
CPT/HCPCS: 36415; 71010; 74177; 75726; 76937; 80048; 80053; 82962; 83690; 85007; 85014; 85018; 85027; 85610; 85730; 86706; 86850; 86900; 86901; 86920; 87340; 87341; 87641; 93005; 96374; 96375; 99152; 99153; C1713; C1769; C1887; C1892; C1894; C9113; G0480; J0881; J1644; J2250; J2270; J2405; J2704; J2765; J3010; J3430; J7030; P9016; Q0163; Q9967; 99285-25

== ENCOUNTER 2019-03-20 02:55 | Inpatient (IN) | payer MEDICARE, BC ==
[~2019-03-20] VITALS: Ht 182.9 cm; Wt 86.6 kg
[~2019-03-20 02:55] MED LIST changes: -AMLO10TA2 PO; +AMLO10TA8 PO; +CARV12.511 PO; -CARV12.52 PO; +CARV25TA2 PO
[2019-03-20] MEDS ORDERED: IPRATRPIUM/ALBUTEROL 0.5/2.5MG 3 ML NEBU. ONE (03:12)
[2019-03-20 03:15] LABS: BASO # 0.1 x10^3/uL (0.0-0.2); BASO % 1 % (0-3); EOS # 0.3 x10^3/uL (0.0-0.7); EOS % 2 % (0-3); HEMATOCRIT 22.4 % (39.0-53.0); HEMOGLOBIN 7.3 g/dL (13.0-17.5); LYMPH # 2.1 x10^3/uL (1.0-4.8); LYMPH % 12 % (24-48); MEAN CORPUSCULAR HEMOGLOBIN 23 pg (25-35); MEAN CORPUSCULAR HGB CONC 33 g/dL (31-37); MEAN CORPUSCULAR VOLUME 69 fL (79-100); MONO # 1.9 x10^3/uL (0.0-1.1); MONO % 11 % (0-9); NEUT # 13.5 x10^3/uL (1.8-7.7); NEUT % 75 % (31-73); PLATELET COUNT 218 x10^3/uL (140-400); RED BLOOD COUNT 3.25 x10^6/uL (4.30-5.70); RED CELL DISTRIBUTION WIDTH 28.5 % (11.5-14.5); WHITE BLOOD COUNT 17.9 x10^3/uL (4.0-11.0)
[2019-03-20] MEDS ORDERED: IPRATRPIUM/ALBUTEROL 0.5/2.5MG 3 ML NEBU. NEB ONE (03:15)
[2019-03-20] MEDS ORDERED: NITROGLYCERIN OINT 1 GM PACKET. TP ONE (03:15)
[2019-03-20] MEDS ORDERED: MORPHINE SULFATE 2 MG/ML VIAL. IV ONE (03:15)
[2019-03-20 03:25] LABS: CALCIUM 8.9 mg/dL (8.5-10.1); CREATININE 15.9 mg/dL (0.7-1.3); GFR 3.7; POTASSIUM 4.7 mmol/L (3.5-5.1)
[2019-03-20 03:27] LABS: BASE EXCESS COOX 4 mmol/L (-3-3); HCO3 COOX 28 mmol/L (21-28); METHEMOGLOBIN 0.3 % (0.0-1.9); OXYHEMOGLOBIN 88.5 %; PCO2 COOX 41 mmHg (35-46); PO2 COOX 62 mmHg (65-108); SAT O2 COOX 92 % (92-99)
[2019-03-20 03:31] LABS: ALBUMIN 3.5 g/dL (3.4-5.0); ALBUMIN/GLOBULIN RATIO 0.7 (1.0-1.7); TOTAL BILIRUBIN 0.6 mg/dL (0.2-1.0); TOTAL PROTEIN 8.5 g/dL (6.4-8.2)
--- NOTE | 2019-03-20 03:41 | RAD ---
Indication: Shortness of breath. TECHNIQUE:Portable AP chest X-ray COMPARISON: None FINDINGS: Heart is normal in size. Mild interstitial opacities bilaterally without focal consolidation. No pneumothorax or pleural effusion. Visualized bony thorax within normal limits. IMPRESSION: Findings of mild interstitial edema or atypical/viral infection. Electronically signed by: Benny Souza DO (03/20/2019 3:39 AM) [facility]
--- NOTE | 2019-03-20 03:49 | PHYS DOC ---
Past Medical History Past Medical History: Diabetes-Type II, Hypertension, Renal Failure Additional Past Medical Histor: KIDNEY DISEASE Past Surgical History: Other Additional Past Surgical Histo: Lt arm dialysis shunt Alcohol Use: None Drug Use: Marijuana Adult General Chief Complaint Chief Complaint: SHORTNESS OF BREATH HPI HPI 63-year-old male underlying history of hypertension, hemodialysis Sunday presents to the emergency Department complaints of dyspnea times one day. Patient states he received dialysis on Sunday however only half the treatment. He denies any chest pain, nausea, vomiting, diarrhea, fever. Patient saturations 86% on 6 L upon arrival. Nothing makes symptoms worse, nothing makes his symptoms better. Given his shortness of breath tonight he presented ER for further evaluation. Review of Systems Review of Systems Constitutional: Denies fever or chills [] Respiratory: cough/sob Cardiovascular: No additional information not addressed in HPI [] GI: Denies abdominal pain, nausea, vomiting, bloody stools or diarrhea [] Integument: Denies rash or skin lesions [] Neurologic: Denies headache, focal weakness or sensory changes [] All other systems were reviewed and found to be within normal limits, except as documented in this note. Current Medications Current Medications Current Medications Medications (Trade) Dose Ordered Sig/Julian Start Time Stop Time Status Last Admin Dose Admin Acetaminophen (Tylenol) 650 mg PRN Q4HRS PRN 03/20/19 04:00 03/21/19 03:59 Albuterol/ Ipratropium (Duoneb) 3 ml STK-MED ONCE 03/20/19 03:12 03/20/19 03:13 DC Morphine Sulfate (Morphine Sulfate) 2 mg PRN Q2HR PRN 03/20/19 04:00 03/21/19 03:59 Nitroglycerin (Nitro-Bid Oint) 1 inch 1X ONCE 03/20/19 03:15 03/20/19 03:16 DC 03/20/19 03:27 1 INCH Ondansetron HCl (Zofran) 4 mg PRN Q8HRS PRN 03/20/19 04:00 03/21/19 03:59 Allergies Allergies Allergies Coded Allergies Type Severity Reaction Last Updated Verified No Known Drug Allergies 12/05/16 No Physical Exam Physical Exam Constitutional: Well developed, well nourished, mild resp distress, non-toxic appearance. [] HENT: Normocephalic, atraumatic, bilateral external ears normal, oropharynx moist, no oral exudates, nose normal. [] Eyes: PERRLA, EOMI, conjunctiva normal, no discharge. [] Cardiovascular:Heart rate regular rhythm, no murmur [] Lungs & Thorax: decreased BS bilaterally, occ wheeze appreciated Abdomen: Bowel sounds normal, soft, no tenderness, no masses, no pulsatile masses. [] Skin: Warm, dry, no erythema, no rash. [] Back: No tenderness, no CVA tenderness. [] Extremities: No tenderness, no edema. [] Neurologic: Alert and oriented X 3, no focal deficits noted. [] Psychologic: Affect normal, judgement normal, mood normal. [] Current Patient Data Vital Signs Vital Signs Date Time Temp Pulse Resp B/P (MAP) Pulse Ox O2 Delivery O2 Flow Rate FiO2 03/20/19 04:00 92 Venturi Mask 15.0 03/20/19 03:28 26 03/20/19 03:27 104 217/105 Lab Values Laboratory Tests Test 03/20/19 03:00 03/20/19 03:25 White Blood Count 17.9 x10^3/uL (4.0-11.0) H Red Blood Count 3.25 x10^6/uL (4.30-5.70) L Hemoglobin 7.3 g/dL (13.0-17.5) L Hematocrit 22.4 % (39.0-53.0) L Mean Corpuscular Volume 69 fL (79-100) L Mean Corpuscular Hemoglobin 23 pg (25-35) L Mean Corpuscular Hemoglobin Concent 33 g/dL (31-37) Red Cell Distribution Width 28.5 % (11.5-14.5) H Platelet Count 218 x10^3/uL (140-400) Neutrophils (%) (Auto) 75 % (31-73) H Lymphocytes (%) (Auto) 12 % (24-48) L Monocytes (%) (Auto) 11 % (0-9) H Eosinophils (%) (Auto) 2 % (0-3) Basophils (%) (Auto) 1 % (0-3) Neutrophils # (Auto) 13.5 x10^3/uL (1.8-7.7) H Lymphocytes # (Auto) 2.1 x10^3/uL (1.0-4.8) Monocytes # (Auto) 1.9 x10^3/uL (0.0-1.1) H Eosinophils # (Auto) 0.3 x10^3/uL (0.0-0.7) Basophils # (Auto) 0.1 x10^3/uL (0.0-0.2) Platelet Estimate Pending Sodium Level 139 mmol/L (136-145) Potassium Level 4.7 mmol/L (3.5-5.1) Chloride Level 95 mmol/L (98-107) L Carbon Dioxide Level 27 mmol/L (21-32) Anion Gap 17 (6-14) H Blood Urea Nitrogen 77 mg/dL (8-26) H Creatinine 15.9 mg/dL (0.7-1.3) H Estimated GFR (Cockcroft-Gault) 3.7 BUN/Creatinine Ratio 5 (6-20) L Glucose Level 183 mg/dL (70-99) H Calcium Level 8.9 mg/dL (8.5-10.1) Total Bilirubin 0.6 mg/dL (0.2-1.0) Aspartate Amino Transferase (AST) 12 U/L (15-37) L Alanine Aminotransferase (ALT) 8 U/L (16-63) L Alkaline Phosphatase 61 U/L (46-116) Total Protein 8.5 g/dL (6.4-8.2) H Albumin 3.5 g/dL (3.4-5.0) Albumin/Globulin Ratio 0.7 (1.0-1.7) L O2 Saturation 92 % (92-99) Arterial Blood pH 7.46 (7.35-7.45) H Arterial Blood pCO2 at Patient Temp 41 mmHg (35-46) Arterial Blood pO2 at Patient Temp 62 mmHg (65-108) L Arterial Blood HCO3 28 mmol/L (21-28) Arterial Blood Base Excess 4 mmol/L (-3-3) H Oxyhemoglobin 88.5 % Methemoglobin 0.3 % (0.0-1.9) Carbon Monoxide, Quantitative 3.1 % (0.0-1.9) H FiO2 50 Laboratory Tests 03/20/19 03:00 Laboratory Tests 03/20/19 03:00 EKG EKG [] Radiology/Procedures Radiology/Procedures [facility] [address] [place] [address] IMAGING REPORT Signed PATIENT: PAOLO VERDE ACCOUNT: [id number] : 1955 LOCATION: ER AGE: 63 SEX: M EXAM STATUS: REG ER ORD. PHYSICIAN: JELENA BROWNE MD REASON: Shortness of breath/dialysis patient PROCEDURE: PORTABLE CHEST 1V Indication: Shortness of breath. TECHNIQUE:Portable AP chest X-ray COMPARISON: None FINDINGS: Heart is normal in size. Mild interstitial opacities bilaterally without focal consolidation. No pneumothorax or pleural effusion. Visualized bony thorax within normal limits. IMPRESSION: Findings of mild interstitial edema or atypical/viral infection. Electronically signed by: Benny Souza DO (03/20/2019 3:39 AM) [facility] DICTATED and SIGNED BY: BENNY SOUZA DO DATE: 03/20/19338 [] Course & Med Decision Making Course & Med Decision Making Pertinent Labs and Imaging studies reviewed. (See chart for details) []63-year-old male underlying history of hypertension, hemodialysis Sunday presents to the emergency Department complaints of dyspnea times one day. Patient states he received dialysis on Sunday however only half the treatment. He denies any chest pain, nausea, vomiting, diarrhea, fever. Patient saturations 86% on 6 L upon arrival. Nothing makes symptoms worse, nothing makes his symptoms better. Given his shortness of breath tonight he presented ER for further evaluation. Laboratory values and imaging reviewed. Chest x-ray reveals evidence of pulmonary edema. Labs reviewed, white blood cell count 17.9 no evidence of acute infectious etiology. Creatinine 15.9, potassium 4.7. ABG pH 7.46, PCO2 41, PO2 62, bicarbonate 28 EKG reviewed no evidence of ST elevation PA, tachycardia appreciated with normal axis rotation time 0307 Patient was initially provided with DuoNeb, nasal cannula was changed to 50% Ventimask with improvement of oxygen saturations. 1 inch of Nitropaste applied secondary to patient's hypertension and pulmonary edema. Hydralazine 10 mg IV 1 with when necessary medications provided for the floor. She dialyzes at [facility] will plan for admission and nephrology consultation. At this time given patient's improved saturations will be okay to wait for this a.m. Garry Disclaimer Dragon Disclaimer This electronic medical record was generated, in whole or in part, using a voice recognition dictation system. Critical Care Time Critical care time was 40 minutes exclusive of procedures. Departure Departure Impression: Primary Impression: Acute respiratory distress Additional Impressions: Acute pulmonary edema ESRD (end stage renal disease) Hypertensive urgency Disposition: ADMITTED INPATIENT Admitting Physician: GIOVANNA Condition: IMPROVED Referrals: UNKNOWN PCP NAME (PCP) Problem Qualifiers JELENA BROWNE MD Mar 20, 2019 03:49
[2019-03-20] MEDS ORDERED: ONDANSETRON PF 4 MG/2 ML VIAL. IV PRN (04:00)
[2019-03-20] MEDS ORDERED: MORPHINE SULFATE 2 MG/ML VIAL. IV PRN (04:00)
[2019-03-20] MEDS ORDERED: hydrALAZINE 20 MG/ML VIAL. IVP ONE (04:30)
[2019-03-20 05:16] LABS: % BANDS 4 % (0-9); % EOS 2 % (0-5); % LYMPHS 16 % (24-48); % MONOS 9 % (0-10); % MYELOS 1 % (0-0); % SEGS 68 % (35-66)
[2019-03-20 05:17] LABS: ANISOCYTOSIS MARKED; HYPOCHROMIA MOD; MICROCYTOSIS MARKED; PLT ESTIMATE ADEQUATE (ADEQUATE); POLYCHROMASIA SLIGHT; TARGET CELLS FEW
--- NOTE | 2019-03-20 05:46 | NUR ---
The patient, PAOLO VERDE, 63 y/o, M admitted by FOUZIA VALENZUELA III, DO, was given written information regarding hospital policies, unit procedures and contact persons. ORIENTED TO ROOM, POC AND DINING ROOM HOSTESS. PT HAS ID ARMBAND, FALL AND LIMB BAND. ASSESSMENT AND MEDS WILL BE VERIFIED. PT WOBBLY/UNSTEADY. ON NICOLE MASK 50% NICOLE MASK. Valuables were checked and DOCUMENT IN EMR. LCRN
[2019-03-20 06:19] VITALS: BP 199/100
[2019-03-20] MEDS ORDERED: GABA300C18 PO (06:24)
[2019-03-20] MEDS ORDERED: RANI150C PO (06:28)
[2019-03-20] MEDS ORDERED: AMLO10TA8 PO (06:28)
[2019-03-20] MEDS ORDERED: LISI-130 PO (06:28)
[2019-03-20] MEDS ORDERED: METO50TA6 PO (06:28)
[2019-03-20] MEDS ORDERED: ASPI81TA50 PO (06:28)
[2019-03-20 07:00] VITALS: BP 187/95
--- NOTE | 2019-03-20 07:30 | EKG ---
[facility] [address] [place] [address] Test Date: 2019-03-20 Test Time: 03:07:34 Pat Name: PAOLO VERDE Department: Room: 254 1 Gender: M [employer]: : 1955 Requested By: JELENA BROWNE Order Number: [id number] Reading MD: Eduardo Encarnacion MD Measurements Intervals Gary Rate: 109 P: 174 [place]: 142 QRS: 58 QRSD: 100 T: 41 QT: 352 QTc: 476 Interpretive Statements SINUS TACHYCARDIA NON-SPECIFIC ST/T CHANGES Electronically Signed On 03-21-2019 14:31:44 NNP by Eduardo Encarnacion MD
[2019-03-20] MEDS: IPRATRPIUM/ALBUTEROL 0.5/2.5MG 3 ML NEBU. NEB SCH ×4 (08:51→20:38)
[2019-03-20] MEDS ORDERED: IV NORMAL SALINE 1000ML BAG 1,000 ML IV PRN ×2 (10:04)
[2019-03-20] MEDS ORDERED: ALBUMIN HUMAN 25% 200 ML IV PRN (10:15)
[2019-03-20] MEDS ORDERED: DIALYSIS PATIENT. MC PRN ×2 (10:15)
--- NOTE | 2019-03-20 11:18 | NUR ---
Pt left at approx 1045 for dialysis.
[2019-03-20] MEDS: hydrALAZINE 20 MG/ML VIAL. IVP PRN (13:26)
--- NOTE | 2019-03-20 14:06 | HP ---
ADMIT DATE: 03/20/2019 CHIEF COMPLAINT: Shortness of breath. HISTORY OF PRESENT ILLNESS: The patient is a pleasant 63-year-old male who is on dialysis. He missed dialysis once or twice last week. Now, he is short of breath. He is volume overloaded. He has associated anxiety, moving makes it worse, sitting still makes it better, describes as irritating. He tried taking some extra meds but that did not seem to help. I discussed the case with ER physician. It appears he is volume overload with acute on chronic systolic and diastolic heart failure. We are going to admit the patient and consult Nephrology. We are going to get him emergently dialyzed. PAST MEDICAL HISTORY: End-stage renal disease, on dialysis, noncompliance, diabetes, hypertension. ALLERGIES: None. FAMILY HISTORY: Hypertension and coronary artery disease. SOCIAL HISTORY: He does not drink, smoke or take drugs. MEDICATIONS: Reviewed, please refer to the MRAD. REVIEW OF SYSTEMS: GENERAL: No history of weight change, weakness or fevers. SKIN: No bruising, hair changes or rashes. EYES: No blurred, double or loss of vision. NOSE AND THROAT: No history of nosebleeds, hoarseness or sore throat. HEART: No history of palpitations, chest pain or shortness of breath on exertion. LUNGS: He complains of shortness of breath. GASTROINTESTINAL: Denies changes in appetite, nausea, vomiting, diarrhea or constipation. GENITOURINARY: No history of frequency, urgency, hesitancy or nocturia. NEUROLOGIC: Denies history of numbness, tingling, tremor or weakness. PSYCHIATRIC: No history of panic, anxiety or depression. ENDOCRINE: No history of heat or cold intolerance, polyuria or polydipsia. EXTREMITIES: Denies muscle weakness, joint pain, pain on walking or stiffness. PHYSICAL EXAMINATION: VITALS: Within normal limits and are stable. GENERAL: No apparent distress. Alert and oriented. HEENT: Head is normocephalic, atraumatic, pupils were equally round and reactive to light and accommodation. NECK: Supple, no JVD, no thyromegaly was noted. LUNGS: He has bilateral crackles. HEART: RRR, S1, S2 present. Peripheral pulses intact, no obvious murmurs were noted. ABDOMEN: Soft, nontender. Positive bowel sounds no organomegaly, normal bowel sounds. EXTREMITIES: Without any cyanosis, clubbing, or edema. Pedal pulses intact, Homans sign is negative. NEUROLOGIC: Normal speech, normal tone. A & O x 3, moves all extremities, no obvious focal deficits. PSYCHIATRIC: Normal affect, normal mood. Stable. SKIN: No ulcerations or rashes, good skin turgor, no jaundice. VASCULAR: Good capillary refill, neurovascular bundle appears to be intact. LABORATORY DATA: Shows electrolytes of sodium 139, potassium 4.7, BUN 77, creatinine 15.9, glucose 183. White count 17.9, hemoglobin 7.3, platelets 218. Chest x-ray shows vascular congestion. ASSESSMENT AND PLAN: Acute on chronic systolic and diastolic heart failure, volume overload, leukocytosis, azotemia, anemia in a middle-aged male who has end-stage renal disease and is noncompliant. Basically, he has been admitted and we are going to consult Nephrology and deemed dialyzed. For now, we will continue his home meds, deep venous thrombosis prophylaxis. Full code. Long-term prognosis is guarded. FOUZIA VALENZUELA DO DR: ELIUD/barak JOB#: [id number] / [id number]
[2019-03-20 15:00] VITALS: BP 200/90
[2019-03-20] MEDS: ACETAMINOPHEN 325 MG TABLET. PO PRN ×2 (15:24→23:30)
[2019-03-20] MEDS: GABAPENTIN 300 MG CAPSULE. PO SCH (15:24)
[2019-03-20] MEDS: amLODIPine BESYLATE 10 MG TABLET PO SCH (15:24)
[2019-03-20] MEDS: ASPIRIN ENTERIC COATED 81 MG TABLET.DR. PO SCH (15:24)
[2019-03-20] MEDS: LISINOPRIL 20 MG TABLET PO SCH (15:25)
--- NOTE | 2019-03-20 15:52 | NUR ---
SS following for discharge planning. SS reviewed pt chart. Pt is from home with spouse and is currently requiring oxygen. Pt has dialysis at [facility] [address] in [place], [place], ; fax [phone], Sunday, , and Sunday at 0600. SS will continue to follow for discharge planning.
[2019-03-20] MEDS ORDERED: LABETALOL 20 MG/4 ML DISP.SYRIN. IVP PRN (16:30)
[2019-03-20] MEDS ORDERED: PIP/TAZO PER PHARMACY MC PRN (16:45)
[2019-03-20] MEDS: PIPERACILLIN/TAZOBACTAM 2.25 GM in IV NORMAL SALINE 50ML 50 ML IV SCH (17:09)
[2019-03-20] MEDS ORDERED: VANCOMYCIN 2 GM in IV NORMAL SALINE 500ML BAG 500 ML IV ONE (17:30)
[2019-03-20 19:55] VITALS: BP 190/94
[2019-03-20] MEDS: METOPROLOL TART IMMED RELEASE 50 MG TABLET. PO SCH (21:33)
[2019-03-20] MEDS: FAMOTIDINE 20 MG TABLET. PO SCH (21:33)
--- NOTE | 2019-03-20 21:56 | PDOC2 ---
CONSULT Date of Consult Date of Consult DATE: 03/20/19 TIME: 12:00 Reason for Consult Reason for Consult: ESRD Source Source: Chart review, Patient History of Present Illness Reason for Visit: 63-year-old aa male underlying history of hypertension, hemodialysis Sunday presents to the emergency Department complaints of dyspnea times one day. Patient states he received dialysis on Sunday however only half the treatment. He denies any chest pain, nausea, vomiting, diarrhea, fever. Patient saturations 86% on 6 L upon arrival. Nothing makes symptoms worse, nothing makes his symptoms better. Given his shortness of breath tonight he presented ER for further evaluation. Seen onHD, denies any complaints currently. Has been on HD for 3 years, No RRF Past Medical History Cardiovascular: HTN Renal/: Chronic renal failure Past Surgical History Past Surgical History: No pertinent history Family History Family History: Heart Disease, Hypertension Social History ALCOHOL: none Drugs: Marijuana Current Problem List Problem List Problems Medical Problems: (1) Acute pulmonary edema Status: Acute (2) Acute respiratory distress Status: Acute (3) ESRD (end stage renal disease) Status: Acute (4) Hypertensive urgency Status: Acute Current Medications Current Medications Current Medications Albuterol/ Ipratropium (Duoneb) 3 ml 1X ONCE NEB Last administered on 03/20/19at 03:14; Start 03/20/19 at 03:15; Stop 03/20/19 at 03:16; Status DC Nitroglycerin (Nitro-Bid Oint) 1 inch 1X ONCE TP Last administered on 03/20/19at 03:27; Start 03/20/19 at 03:15; Stop 03/20/19 at 03:16; Status DC Morphine Sulfate (Morphine Sulfate) 2 mg 1X ONCE IV Last administered on 03/20/19at 03:28; Start 03/20/19 at 03:15; Stop 03/20/19 at 03:16; Status DC Albuterol/ Ipratropium (Duoneb) 3 ml STK-MED ONCE .ROUTE ; Start 03/20/19 at 03:12; Stop 03/20/19 at 03:13; Status DC Ondansetron HCl (Zofran) 4 mg PRN Q8HRS PRN IV NAUSEA/VOMITING; Start 03/20/19 at 04:00; Stop 03/21/19 at 03:59 Morphine Sulfate (Morphine Sulfate) 2 mg PRN Q2HR PRN IV PAIN; Start 03/20/19 at 04:00; Stop 03/21/19 at 03:59 Acetaminophen (Tylenol) 650 mg PRN Q4HRS PRN PO FEVER Last administered on at 15:24; Start 03/20/19 at 04:00; Stop 03/21/19 at 03:59 Hydralazine HCl (Apresoline Inj) 10 mg 1X ONCE IVP Last administered on 03/20/19at 04:38; Start 03/20/19 at 04:30; Stop 03/20/19 at 04:33; Status DC Hydralazine HCl (Apresoline Inj) 10 mg PRN Q4HRS PRN IVP ELEVATED BP, SEE COMMENTS Last administered on 03/20/19at 13:26; Start 03/20/19 at 04:15 Albuterol/ Ipratropium (Duoneb) 3 ml RTQID NEB Last administered on 03/20/19at 20:38; Start 03/20/19 at 08:45 Sodium Chloride 1,000 ml @ 1,000 mls/hr Q1H PRN IV hypotension; Start 03/20/19 at 10:04; Stop 03/20/19 at 16:03; Status DC Albumin Human 200 ml @ 200 mls/hr 1X PRN PRN IV Hypotension; Start 03/20/19 at 10:15; Stop 03/20/19 at 16:14; Status DC Sodium Chloride 1,000 ml @ 400 mls/hr Q2H30M PRN IV PATENCY; Start 03/20/19 at 10:04; Stop 03/20/19 at 22:03 Info (PHARMACY MONITORING -- do not chart) 1 each PRN DAILY PRN MC SEE COMMENTS; Start 03/20/19 at 10:15; Status UNV Info (PHARMACY MONITORING -- do not chart) 1 each PRN DAILY PRN MC SEE COMMENTS; Start 03/20/19 at 10:15 Amlodipine Besylate (Norvasc) 10 mg DAILY PO Last administered on 03/20/19at 15:24; Start 03/20/19 at 13:00 Aspirin (Ecotrin) 81 mg DAILY PO Last administered on 03/20/19at 15:24; Start 03/20/19 at 13:00 Gabapentin (Neurontin) 300 mg DAILY PO Last administered on 03/20/19at 15:24; Start 03/20/19 at 13:00 Lisinopril (Prinivil) 40 mg DAILY PO Last administered on 03/20/19at 15:25; Start 03/20/19 at 13:00 Metoprolol Tartrate (Lopressor) 50 mg BID PO Last administered on 03/20/19at 21:33; Start 03/20/19 at 21:00 Famotidine (Pepcid) 20 mg QHS PO Last administered on 03/20/19at 21:33; Start 03/20/19 at 21:00 Labetalol HCl (Normodyne Iv Push) 20 mg PRN Q4HRS PRN IVP HYPERTENSION Last administered on 03/20/19at 17:18; Start 03/20/19 at 16:30 Vancomycin HCl (Vanco Per Pharmacy) 1 each PRN DAILY PRN MC SEE COMMENTS; Start 03/20/19 at 16:45 Piperacillin Sod/ Tazobactam Sod (Zosyn Per Pharmacy) 1 each PRN DAILY PRN MC SEE COMMENTS; Start 03/20/19 at 16:45 Piperacillin Sod/ Tazobactam Sod 2.25 gm/Sodium Chloride 50 ml @ 100 mls/hr Q8HRS IV Last administered on 03/20/19at 17:09; Start 03/20/19 at 17:00 Vancomycin HCl 2 gm/Sodium Chloride 500 ml @ 250 mls/hr 1X ONCE IV Last administered on 03/20/19at 17:55; Start 03/20/19 at 17:30; Stop 03/20/19 at 19:29; Status DC Active Scripts Active Reported Aspir-Low (Aspirin) 81 Mg Tablet.dr 1 Tab PO DAILY Metoprolol Tartrate 50 Mg Tablet 50 Mg PO BID Lisinopril 40 Mg Tablet 40 Mg PO DAILY Amlodipine Besylate 10 Mg Tablet 10 Mg PO DAILY Ranitidine Hcl 150 Mg Capsule 1 Cap PO BID Gabapentin (Gabapentin) 300 Mg Capsule 300 Mg PO DAILY after dialysis on dialysis days Allergies Allergies: Coded Allergies: No Known Drug Allergies (Unverified , 12/05/16) ROS Review of System Per HPI Physical Exam Physical Exam GENERAL: No apparent distress. HEENT: Head is normocephalic, atraumatic,OM moist NECK: Supple, no JVD, LUNGS: bilateral crackles. HEART: RRR, S1, S2 present. ABDOMEN: Soft, nontender. EXTREMITIES: Without any cyanosis, clubbing, or edema. NEUROLOGIC: Normal speech, normal tone. A & O x 3, moves all extremities, no obvious focal deficits. PSYCHIATRIC: Normal affect, normal mood. Stable. SKIN: No ulcerations or rashes, good skin turgor, no jaundice. No Ty Vital Signs Vital Signs Date Time Temp Pulse Resp B/P (MAP) Pulse Ox O2 Delivery O2 Flow Rate FiO2 03/20/19 21:33 105 190/94 03/20/19 20:37 98 Nasal Cannula 1.0 03/20/19 19:55 98.9 18 98.9 Assessment & Plan ESRD- On HD TTS- [facility] Seen on HD , tolerating well, continue as ordered Surinder Wyatt Acute on chronic systolic and diastolic heart failure-Per Primary Anemia - CHANA per protocol for Hgb <10 Chronic HTN - Uncontrolled Antihypertensives to optimize Labs Labs Laboratory Tests Test 03/20/19 03:00 03/20/19 03:25 White Blood Count 17.9 x10^3/uL (4.0-11.0) Red Blood Count 3.25 x10^6/uL (4.30-5.70) Hemoglobin 7.3 g/dL (13.0-17.5) Hematocrit 22.4 % (39.0-53.0) Mean Corpuscular Volume 69 fL (79-100) Mean Corpuscular Hemoglobin 23 pg (25-35) Mean Corpuscular Hemoglobin Concent 33 g/dL (31-37) Red Cell Distribution Width 28.5 % (11.5-14.5) Platelet Count 218 x10^3/uL (140-400) Neutrophils (%) (Auto) 75 % (31-73) Lymphocytes (%) (Auto) 12 % (24-48) Monocytes (%) (Auto) 11 % (0-9) Eosinophils (%) (Auto) 2 % (0-3) Basophils (%) (Auto) 1 % (0-3) Neutrophils # (Auto) 13.5 x10^3/uL (1.8-7.7) Lymphocytes # (Auto) 2.1 x10^3/uL (1.0-4.8) Monocytes # (Auto) 1.9 x10^3/uL (0.0-1.1) Eosinophils # (Auto) 0.3 x10^3/uL (0.0-0.7) Basophils # (Auto) 0.1 x10^3/uL (0.0-0.2) Segmented Neutrophils % 68 % (35-66) Band Neutrophils % 4 % (0-9) Lymphocytes % 16 % (24-48) Monocytes % 9 % (0-10) Eosinophils % 2 % (0-5) Myelocytes % 1 % (0-0) Platelet Estimate Adequate (ADEQUATE) Polychromasia Slight Hypochromasia Mod Anisocytosis Marked Microcytosis Marked Target Cells Few Sodium Level 139 mmol/L (136-145) Potassium Level 4.7 mmol/L (3.5-5.1) Chloride Level 95 mmol/L (98-107) Carbon Dioxide Level 27 mmol/L (21-32) Anion Gap 17 (6-14) Blood Urea Nitrogen 77 mg/dL (8-26) Creatinine 15.9 mg/dL (0.7-1.3) Estimated GFR (Cockcroft-Gault) 3.7 BUN/Creatinine Ratio 5 (6-20) Glucose Level 183 mg/dL (70-99) Calcium Level 8.9 mg/dL (8.5-10.1) Total Bilirubin 0.6 mg/dL (0.2-1.0) Aspartate Amino Transf (AST/SGOT) 12 U/L (15-37) Alanine Aminotransferase (ALT/SGPT) 8 U/L (16-63) Alkaline Phosphatase 61 U/L (46-116) Total Protein 8.5 g/dL (6.4-8.2) Albumin 3.5 g/dL (3.4-5.0) Albumin/Globulin Ratio 0.7 (1.0-1.7) O2 Saturation 92 % (92-99) Arterial Blood pH 7.46 (7.35-7.45) Arterial Blood pCO2 at Patient Temp 41 mmHg (35-46) Arterial Blood pO2 at Patient Temp 62 mmHg (65-108) Arterial Blood HCO3 28 mmol/L (21-28) Arterial Blood Base Excess 4 mmol/L (-3-3) Oxyhemoglobin 88.5 % Methemoglobin 0.3 % (0.0-1.9) Carbon Monoxide, Quantitative 3.1 % (0.0-1.9) FiO2 50 Laboratory Tests Test 03/20/19 03:00 03/20/19 03:25 White Blood Count 17.9 x10^3/uL (4.0-11.0) Red Blood Count 3.25 x10^6/uL (4.30-5.70) Hemoglobin 7.3 g/dL (13.0-17.5) Hematocrit 22.4 % (39.0-53.0) Mean Corpuscular Volume 69 fL (79-100) Mean Corpuscular Hemoglobin 23 pg (25-35) Mean Corpuscular Hemoglobin Concent 33 g/dL (31-37) Red Cell Distribution Width 28.5 % (11.5-14.5) Platelet Count 218 x10^3/uL (140-400) Neutrophils (%) (Auto) 75 % (31-73) Lymphocytes (%) (Auto) 12 % (24-48) Monocytes (%) (Auto) 11 % (0-9) Eosinophils (%) (Auto) 2 % (0-3) Basophils (%) (Auto) 1 % (0-3) Neutrophils # (Auto) 13.5 x10^3/uL (1.8-7.7) Lymphocytes # (Auto) 2.1 x10^3/uL (1.0-4.8) Monocytes # (Auto) 1.9 x10^3/uL (0.0-1.1) Eosinophils # (Auto) 0.3 x10^3/uL (0.0-0.7) Basophils # (Auto) 0.1 x10^3/uL (0.0-0.2) Segmented Neutrophils % 68 % (35-66) Band Neutrophils % 4 % (0-9) Lymphocytes % 16 % (24-48) Monocytes % 9 % (0-10) Eosinophils % 2 % (0-5) Myelocytes % 1 % (0-0) Platelet Estimate Adequate (ADEQUATE) Polychromasia Slight Hypochromasia Mod Anisocytosis Marked Microcytosis Marked Target Cells Few Sodium Level 139 mmol/L (136-145) Potassium Level 4.7 mmol/L (3.5-5.1) Chloride Level 95 mmol/L (98-107) Carbon Dioxide Level 27 mmol/L (21-32) Anion Gap 17 (6-14) Blood Urea Nitrogen 77 mg/dL (8-26) Creatinine 15.9 mg/dL (0.7-1.3) Estimated GFR (Cockcroft-Gault) 3.7 BUN/Creatinine Ratio 5 (6-20) Glucose Level 183 mg/dL (70-99) Calcium Level 8.9 mg/dL (8.5-10.1) Total Bilirubin 0.6 mg/dL (0.2-1.0) Aspartate Amino Transf (AST/SGOT) 12 U/L (15-37) Alanine Aminotransferase (ALT/SGPT) 8 U/L (16-63) Alkaline Phosphatase 61 U/L (46-116) Total Protein 8.5 g/dL (6.4-8.2) Albumin 3.5 g/dL (3.4-5.0) Albumin/Globulin Ratio 0.7 (1.0-1.7) O2 Saturation 92 % (92-99) Arterial Blood pH 7.46 (7.35-7.45) Arterial Blood pCO2 at Patient Temp 41 mmHg (35-46) Arterial Blood pO2 at Patient Temp 62 mmHg (65-108) Arterial Blood HCO3 28 mmol/L (21-28) Arterial Blood Base Excess 4 mmol/L (-3-3) Oxyhemoglobin 88.5 % Methemoglobin 0.3 % (0.0-1.9) Carbon Monoxide, Quantitative 3.1 % (0.0-1.9) FiO2 50 Review All relevant outside records, renal labs, imaging studies, telemetry/EKG's were reviewed. Images Images Findings of mild interstitial edema or atypical/viral infection. ANGELA HERRERA MD Mar 20, 2019 21:55
[2019-03-20 23:00] VITALS: BP_SYST 182; BP_SYST 185; BP_DIAS 89; BP_DIAS 98
[2019-03-21] VITALS (7 sets, daily range): BP systolic 162–201; BP diastolic 82–95
[2019-03-21] MEDS: PIPERACILLIN/TAZOBACTAM 2.25 GM in IV NORMAL SALINE 50ML 50 ML IV SCH ×4 (03:38→20:43)
[2019-03-21] MEDS: hydrALAZINE 20 MG/ML VIAL. IVP PRN ×3 (05:47→20:43)
[2019-03-21] MEDS: GABAPENTIN 300 MG CAPSULE. PO SCH (08:06)
[2019-03-21] MEDS: amLODIPine BESYLATE 10 MG TABLET PO SCH (08:07)
[2019-03-21] MEDS: METOPROLOL TART IMMED RELEASE 50 MG TABLET. PO SCH (08:08)
[2019-03-21] MEDS: ASPIRIN ENTERIC COATED 81 MG TABLET.DR. PO SCH (08:08)
[2019-03-21] MEDS: LISINOPRIL 20 MG TABLET PO SCH (08:09)
[2019-03-21] MEDS: IPRATRPIUM/ALBUTEROL 0.5/2.5MG 3 ML NEBU. NEB SCH ×4 (08:31→19:24)
--- NOTE | 2019-03-21 08:38 | PDOC ---
Infectious Disease Note Vital Sign Vital Signs Vital Signs Date Time Temp Pulse Resp B/P (MAP) Pulse Ox O2 Delivery O2 Flow Rate FiO2 03/21/19 05:47 89 185/89 03/21/19 03:45 99.6 20 100 Nasal Cannula 2.0 99.6 Objective Assessment Fever Leukocytosis - ? chronic elevation CKD on HD R buttock gluteal cleft wound - no sign of infection Uncontrolled HTN Anemia Plan Plan of Care CBC/Blood cults this am Cont Vanc and Zosyn Flu screen Labs in am HTN per Renal and primary Anemia per renal and primary Thank you # [phone] DARIEL MCCULLOUGH MD Mar 21, 2019 08:38
--- NOTE | 2019-03-21 08:57 | PDOC2 ---
RENAY WARD GERONTOLOGY AIDE 03/21/19 0856: CARDIAC CONSULT DATE OF CONSULT Date of Consult DATE: 03/21/19 TIME: 08:46 REASON FOR CONSULT Reason for Consult: HTN urgency REFERRING PHYSICIAN Referring Physician: Mahesh SOURCE Source: Chart review, Patient HISTORY OF PRESENT ILLNESS HISTORY OF PRESENT ILLNESS This is a pleasant 63 yo male admitted for complains of SOA. Also he has been having chills. Also he has been having nonproductive cough. Last week he missed his dialysis x1 last week. No nausea , vomiting or chest pain. His BP has been good at home but upon admission it was noted to be high and uncontrolled. Reports compliance otherwise to his medications. No hx of CAD, arrhythmias but significant for ESRD, DM. Presently no symtoms and denies any REMY nor any focal neuro symptoms. PAST MEDICAL HISTORY Cardiovascular: HTN CENTRAL NERVOUS SYSTEM: TIA GI: Peptic Ulcer disease () Heme/Onc: Anemia NOS (with transfusion) Musculoskeletal: Osteoarthritis Renal/: Chronic renal failure Endocrine: Diabetes (2) PAST SURGICAL HISTORY Past Surgical History: Other (LA AV fistula) FAMILY HISTORY Family History: Heart Disease SOCIAL HISTORY Smoke: <1 pack per day ALCOHOL: none Drugs: None CURRENT MEDICATIONS CURRENT MEDICATIONS Current Medications Medications (Trade) Dose Ordered Sig/Julian Route PRN Reason Start Time Stop Time Status Last Admin Dose Admin Amlodipine Besylate (Norvasc) 10 mg DAILY PO 03/20/19 13:00 03/21/19 08:07 Aspirin (Ecotrin) 81 mg DAILY PO 03/20/19 13:00 03/21/19 08:08 Gabapentin (Neurontin) 300 mg DAILY PO 03/20/19 13:00 03/21/19 08:06 Lisinopril (Prinivil) 40 mg DAILY PO 03/20/19 13:00 03/21/19 08:09 Metoprolol Tartrate (Lopressor) 50 mg BID PO 03/20/19 21:00 03/21/19 08:08 Famotidine (Pepcid) 20 mg QHS PO 03/20/19 21:00 03/20/19 21:33 Labetalol HCl (Normodyne Iv Push) 20 mg PRN Q4HRS PRN IVP HYPERTENSION 03/20/19 16:30 03/20/19 17:18 Piperacillin Sod/ Tazobactam Sod 2.25 gm/Sodium Chloride 50 ml @ 100 mls/hr Q8HRS IV 03/20/19 17:00 03/21/19 05:47 Vancomycin HCl 2 gm/Sodium Chloride 500 ml @ 250 mls/hr 1X ONCE IV 03/20/19 17:30 03/20/19 19:29 DC 03/20/19 17:55 ALLERGIES ALLERGIES: Coded Allergies: No Known Drug Allergies (Unverified , 12/05/16) ROS Review of System 14 point ROS evaluated with pertinent positives noted per HPI PHYSICAL EXAM General: Alert, Oriented X3, Cooperative, No acute distress HEENT: Atraumatic, Mucous membr. moist/pink Lungs: Other (basilar crackles) Heart: Regular rate (SR), Normal S1, Normal S2, Other (S4- 4/6 systolic murmur to LLS border) Extremities: No cyanosis, No edema Skin: No breakdown, No significant lesion Neuro: Normal speech, Sensation intact Psych/Mental Status: Mental status NL, Mood NL MUSCULOSKELETAL: Osteoarthritic changes both hands VITALS/I&O VITALS/I&O: Vital Signs Date Time Temp Pulse Resp B/P (MAP) Pulse Ox O2 Delivery O2 Flow Rate FiO2 03/21/19 08:33 99 Room Air 03/21/19 08:09 107 201/88 03/21/19 03:45 99.6 20 2.0 99.6 I & O 03/20/19 03/20/19 03/21/19 15:00 23:00 07:00 Intake Total 200 ml 120 ml 600 ml Balance 200 ml 120 ml 600 ml ASSESSMENT/PLAN ASSESSMENT/PLAN 1. Fever with right buttock wound: ID following 2. HTN urgency 3. Acute on chronic diastolic CHF: now compensated 4. ESRD 5. DM2 6. Anemia of chronic disease with also known hx of 7. Hx of noncompliance: missed dialysis last week 8. Murmur 9. Tobaccoism Recommendations 1. TTE. lipids. UDS 2. Continue current regimen but will change to coreg and add hydralazine. Will adjust per BP trend 3. Fluid off loading per HD 4. Smoking cessation EVELYN CORRALES MD 03/22/19 0905: CARDIAC CONSULT ASSESSMENT/PLAN ASSESSMENT/PLAN Late entry for 03/21/2019 Pt. seen and examined. Agree with above OVER SHORT AND DAMAGE CLERK note. Supportive care. Thanks. Will consider outpt ischemic testing. murmur likely MR. WARDRENAY APRN Mar 21, 2019 08:56 EVELYN CORRALES MD Mar 22, 2019 09:05
--- NOTE | 2019-03-21 09:24 | CONS ---
DATE OF CONSULTATION: 03/21/2019 INFECTIOUS DISEASE CONSULTATION LOCATION: The patient is in room 234. REQUESTING PHYSICIAN: Raphael Aragon DO REASON FOR CONSULTATION: Fever. HISTORY OF PRESENT ILLNESS: The patient is a pleasant 63-year-old gentleman with history of dialysis for approximately 3 years or so. He also has a history of "boils." He developed a boil on his right buttock cleft. A little over a week ago, it became painful and difficult for him to sit. Additionally, he developed some diarrhea, some weakness and had missed dialysis several occasions secondary to the pain and boil. Apparently, his had popped it and he had this area had improved; however, he presented to [facility] secondary to shortness of air. On arrival, he had an O2 sat of 86% on 6 liters, blood pressure was 217/105 on arrival. Yesterday, he developed temperatures up to 101. Additionally, on arrival, his white blood cell count was 17.79. He underwent a chest x-ray, which showed interstitial edema or atypical/viral infection. Yesterday, he was placed on vancomycin and Zosyn and underwent some dialysis. This morning, the patient is feeling some better. He did not have a fever until he came here. He has been around his great grandkids who have been ill. He has no gross sinus issues, has a little bit of cough. No sore throat. Diarrhea has improved and had appetite. No nausea or vomiting. Denies any rashes. PAST MEDICAL HISTORY: Positive for hypertension, chronic kidney disease, has a history of a GI bleed, history of "boils" and history of hyperlipidemia. PAST SURGICAL HISTORY: Positive for tonsillectomy, EGDs, mesenteric angiography, I and D of some abscesses and left upper extremity fistula. REVIEW OF SYSTEMS: Otherwise negative. ALLERGIES: No known drug allergies. SOCIAL HISTORY: He is and has been around again some ill children. No tobacco or alcohol. FAMILY HISTORY: Positive for hypertension, coronary artery disease. CURRENT MEDICATIONS: Include vancomycin, Zosyn, Norvasc, Ecotrin, Pepcid, Neurontin, hydralazine, albuterol, Atrovent, Prinivil, metoprolol. Other meds are available and have been reviewed in the chart. PHYSICAL EXAMINATION: VITAL SIGNS: T-max has been 100 degrees, currently 99.6, pulse 89, respirations 20, blood pressure 185/89, satting 100% on 2 liters. CONSTITUTIONAL: He is a pleasant gentleman. He is cooperative. He is in no acute distress. He is lying in bed. HEENT: Pupils equal and reactive with normal conjunctivae. Oral cavity, pharynx is some questionable dentition. NECK: Supple. Good range of motion. LUNGS: Clear to auscultation. HEART: S1, S2. ABDOMEN: Soft, nontender, nondistended, positive bowel sounds. EXTREMITIES: No clubbing or cyanosis. No gross edema. SKIN: Warm to touch without signs of rash. He has a small open area on his right buttock cleft approximately a centimeter or so, did not track deep. There is no surrounding fluctuance, erythema, drainage or odor. NEUROLOGIC: Nonfocal. He is on 2 liters of oxygen. Affect is pleasant. LABORATORY DATA: White count is 7.9, hemoglobin 7.3, platelets of 218, neutrophils 75, lymphs are 12. Creatinine was 15.9 on arrival with glucose of 183. He had normal liver function study tests. Chest x-ray reviewed in the history of present illness. IMPRESSION: 1. Fever. 2. Leukocytosis, questionable chronic elevation based when he was seen here. 3. Chronic kidney disease, on hemodialysis. 4. Right buttock cleft wound. No signs of active infection. 5. Uncontrolled hypertension. 6. Anemia. RECOMMENDATIONS: Obtained a CBC and blood cultures this morning. Continue vancomycin and Zosyn. Obtain a flu screen. Follow up labs in the morning. Hypertension per Renal and primary. Anemia per Renal and primary. Thank you for allowing me to assist in the patient's care. If you have any questions, please do not hesitate to contact me. DARIEL MCCULLOUGH MD DR: CLINTON/barak JOB#: [id number] / [id number]
[2019-03-21 09:34] LABS: BASO # 0.2 x10^3/uL (0.0-0.2); BASO % 1 % (0-3); EOS # 0.7 x10^3/uL (0.0-0.7); EOS % 4 % (0-3); HEMATOCRIT 22.6 % (39.0-53.0); HEMOGLOBIN 7.4 g/dL (13.0-17.5); LYMPH # 1.3 x10^3/uL (1.0-4.8); LYMPH % 8 % (24-48); MEAN CORPUSCULAR HEMOGLOBIN 22 pg (25-35); MEAN CORPUSCULAR HGB CONC 33 g/dL (31-37); MEAN CORPUSCULAR VOLUME 69 fL (79-100); MONO # 1.4 x10^3/uL (0.0-1.1); MONO % 8 % (0-9); NEUT # 13.2 x10^3/uL (1.8-7.7); NEUT % 79 % (31-73); PLATELET COUNT 207 x10^3/uL (140-400); RED BLOOD COUNT 3.29 x10^6/uL (4.30-5.70); RED CELL DISTRIBUTION WIDTH 29.3 % (11.5-14.5); WHITE BLOOD COUNT 16.8 x10^3/uL (4.0-11.0)
[2019-03-21 09:56] LABS: CHOLESTEROL/HDL RATIO 2.8
[2019-03-21] MEDS: VANCOMYCIN PER PHARMACY MC PRN (10:38)
--- NOTE | 2019-03-21 10:41 | NUR ---
Pharmacy Vancomycin Dosing Note S:Consulted to monitor and dose vancomycin started 03/20/19. O:PAOLO VERDE is a 63 year old M with Abscess . Height: 6 feet, 0 inches Weight: 86.294406 kg [place] Body Weight: 77.60 Adjusted Body Weight: 81.28 Dosing Weight: Actual Other Antibiotics: ZOSYN LABS: Last BUN: Last Creatinine: 15.9 Creatinine Clearance: 10 mL/min Last WBC: 16.5 Last Procalcitonin: Tmax (past 24 hours): 101 Microbiology: PENDING I/O: Drug Levels: Last level: on at Last dose given 03/20/19 at 1755 Vancomycin Dosing: Loading Dose: 2000 mg x1 Dosing Weight: Actual Target Trough: 10-20 A: Based on: WEIGHT AND RENAL FUNCTION, DIALYSIS TTHSAT P: 1. 2 GM Vancomycin IV GIVEN 03/20 AT 1800 2. Follow up Random level on 03/22/19 at 0500 AND REDOSE AFTER DIALYSIS INDICATED. 3. Pharmacy will continue to monitor, follow and adjust therapy as needed. CHRISTINA SUMMERS [facility], 03/21/19 0837
--- NOTE | 2019-03-21 11:12 | PDOC ---
SUBJECTIVE ROS States feeling better OBJECTIVE Vital Signs Vital Signs Date Time Temp Pulse Resp B/P (MAP) Pulse Ox O2 Delivery O2 Flow Rate FiO2 03/21/19 08:33 99 Room Air 03/21/19 08:09 107 201/88 03/21/19 07:00 98.7 18 2.0 98.7 I & 0 Intake and Output 03/21/19 07:00 Intake Total 920 ml Balance 920 ml Intake Oral 920 ml PHYSICAL EXAM Physical Exam GENERAL: No apparent distress. HEENT: Head is normocephalic, atraumatic,OM moist NECK: Supple, no JVD, LUNGS: bilateral crackles. HEART: RRR, S1, S2 present. ABDOMEN: Soft, nontender. EXTREMITIES: Without any cyanosis, clubbing, or edema. NEUROLOGIC: Normal speech, normal tone. A & O x 3, moves all extremities, no obvious focal deficits. PSYCHIATRIC: Normal affect, normal mood. Stable. SKIN: No ulcerations or rashes, good skin turgor, no jaundice. No Ty DIAGNOSIS/ASSESSMENT Assessment & Plan ESRD- On HD TTS- [facility] No indication for HD today, stable Vol status, On RA Acute on chronic systolic and diastolic heart failure-Per Primary Anemia - [facility] per protocol for Hgb <10 Chronic HTN - Uncontrolled, Antihypertensives - cardiology managing COMMENT/RELEVANT DATA Meds Current Medications Medications (Trade) Dose Ordered Sig/Julian Start Time Stop Time Status Last Admin Dose Admin Acetaminophen (Tylenol) 650 mg PRN Q4HRS PRN 03/20/19 04:00 03/21/19 03:59 DC 03/20/19 23:30 650 MG Albumin Human 200 ml @ 200 mls/hr 1X PRN PRN 03/20/19 10:15 03/20/19 16:14 DC Albuterol/ Ipratropium (Duoneb) 3 ml RTQID 03/20/19 08:45 03/21/19 08:31 3 ML Amlodipine Besylate (Norvasc) 10 mg DAILY 03/20/19 13:00 03/21/19 08:07 10 MG Aspirin (Ecotrin) 81 mg DAILY 03/20/19 13:00 03/21/19 08:08 81 MG Carvedilol (Coreg) 12.5 mg BIDWMEALS 03/21/19 17:00 Famotidine (Pepcid) 20 mg QHS 03/20/19 21:00 03/20/19 21:33 20 MG Gabapentin (Neurontin) 300 mg DAILY 03/20/19 13:00 03/21/19 08:06 300 MG Hydralazine HCl (Apresoline Inj) 10 mg PRN Q4HRS PRN 03/20/19 04:15 03/21/19 08:06 10 MG Hydralazine HCl (Apresoline) 25 mg TID 03/21/19 11:00 Info (PHARMACY MONITORING -- do not chart) 1 each PRN DAILY PRN 03/20/19 10:15 Labetalol HCl (Normodyne Iv Push) 20 mg PRN Q4HRS PRN 03/20/19 16:30 03/20/19 17:18 20 MG Lactobacillus Rhamnosus (Culturelle) 1 cap BID 03/21/19 21:00 Lisinopril (Prinivil) 40 mg DAILY 03/20/19 13:00 03/21/19 08:09 40 MG Metoprolol Tartrate (Lopressor) 50 mg BID 03/20/19 21:00 03/21/19 10:44 DC 03/21/19 08:08 50 MG Morphine Sulfate (Morphine Sulfate) 2 mg PRN Q2HR PRN 03/20/19 04:00 03/21/19 03:59 DC Nitroglycerin (Nitro-Bid Oint) 1 inch 1X ONCE 03/20/19 03:15 03/20/19 03:16 DC 03/20/19 03:27 1 INCH Ondansetron HCl (Zofran) 4 mg PRN Q8HRS PRN 03/20/19 04:00 03/21/19 03:59 DC Piperacillin Sod/ Tazobactam Sod (Zosyn Per Pharmacy) 1 each PRN DAILY PRN 03/20/19 16:45 Piperacillin Sod/ Tazobactam Sod 2.25 gm/Sodium Chloride 50 ml @ 100 mls/hr Q8HRS 03/20/19 17:00 03/21/19 05:47 100 MLS/HR Sodium Chloride 1,000 ml @ 400 mls/hr Q2H30M PRN 03/20/19 10:04 03/20/19 22:03 DC Vancomycin HCl (Vanco Per Pharmacy) 1 each PRN DAILY PRN 03/20/19 16:45 03/21/19 10:38 1 EACH Vancomycin HCl (Vancomycin Random Level) 1 each 1X ONCE 03/22/19 05:00 03/22/19 05:01 Vancomycin HCl 2 gm/Sodium Chloride 500 ml @ 250 mls/hr 1X ONCE 03/20/19 17:30 03/20/19 19:29 DC 03/20/19 17:55 250 MLS/HR Lab Laboratory Tests Test 03/21/19 09:20 White Blood Count 16.8 x10^3/uL (4.0-11.0) Red Blood Count 3.29 x10^6/uL (4.30-5.70) Hemoglobin 7.4 g/dL (13.0-17.5) Hematocrit 22.6 % (39.0-53.0) Mean Corpuscular Volume 69 fL (79-100) Mean Corpuscular Hemoglobin 22 pg (25-35) Mean Corpuscular Hemoglobin Concent 33 g/dL (31-37) Red Cell Distribution Width 29.3 % (11.5-14.5) Platelet Count 207 x10^3/uL (140-400) Neutrophils (%) (Auto) 79 % (31-73) Lymphocytes (%) (Auto) 8 % (24-48) Monocytes (%) (Auto) 8 % (0-9) Eosinophils (%) (Auto) 4 % (0-3) Basophils (%) (Auto) 1 % (0-3) Neutrophils # (Auto) 13.2 x10^3/uL (1.8-7.7) Lymphocytes # (Auto) 1.3 x10^3/uL (1.0-4.8) Monocytes # (Auto) 1.4 x10^3/uL (0.0-1.1) Eosinophils # (Auto) 0.7 x10^3/uL (0.0-0.7) Basophils # (Auto) 0.2 x10^3/uL (0.0-0.2) Iron Level 23 ug/dL (65-175) Total Iron Binding Capacity 162 ug/dL (250-450) Iron Saturation 14 % (15-34) Triglycerides Level 66 mg/dL (0-150) Cholesterol Level 103 mg/dL (0-200) LDL Cholesterol, Calculated 53 mg/dL (0-100) VLDL Cholesterol, Calculated 13 mg/dL (0-40) Non-HDL Cholesterol Calculated 66 mg/dL (0-129) HDL Cholesterol 37 mg/dL (40-60) Cholesterol/HDL Ratio 2.8 Results All relevant outside records, renal labs, imaging studies, telemetry/EKG's were reviewed. ANGELA HERRERA MD Mar 21, 2019 11:12
--- NOTE | 2019-03-21 11:23 | PDOC ---
PROGRESS NOTES Chief Complaint Chief Complaint RT gluteal boil with mild cellulitis ESRD on [facility] HD LEft av fistula MIcrocytic anemia - gets arenesp during HD C scope - polyps > 5 yrs ago ANEMIA of ESRD ACcel HTN - normal BP at home 200s NOn compliance? to meds MIssed 2-3 sessions HD bec of buttock wound History of Present Illness History of Present Illness HE missed few seesions of HD bec of the small "boil" RT butt cheeck NO fevers, non toxic appearing WBC 17 CXR fluid overload , goty HD yesterday Renal and ID on baord BP HIGH!, no strokes yet CV also on case MCV 60s, tells me a bout c scope 5 tyrs ago only polyps GEts aranesp at HD PLAN: HD per renal, fluid off as needed Iron prep per renal TRAnsfuse if hgb < 7 IV abx per ID Wound care CARds for BP, i resumed home meds, added prns Renal DIet no pT needs TTE today Dw him Vitals Vitals Vital Signs Date Time Temp Pulse Resp B/P (MAP) Pulse Ox O2 Delivery O2 Flow Rate FiO2 03/21/19 08:33 99 Room Air 03/21/19 08:09 107 201/88 03/21/19 07:00 98.7 18 2.0 98.7 Physical Exam General: Alert, Oriented X3, Cooperative, No acute distress Heart: Regular rate (SR), Normal S1, Normal S2, Other (S4- 4/6 systolic murmur to LLS border) Abdomen: Normal bowel sounds, Soft Extremities: No clubbing, No cyanosis, No edema Skin: No breakdown, No significant lesion Labs LABS Laboratory Tests Test 03/21/19 09:20 White Blood Count 16.8 x10^3/uL (4.0-11.0) Red Blood Count 3.29 x10^6/uL (4.30-5.70) Hemoglobin 7.4 g/dL (13.0-17.5) Hematocrit 22.6 % (39.0-53.0) Mean Corpuscular Volume 69 fL (79-100) Mean Corpuscular Hemoglobin 22 pg (25-35) Mean Corpuscular Hemoglobin Concent 33 g/dL (31-37) Red Cell Distribution Width 29.3 % (11.5-14.5) Platelet Count 207 x10^3/uL (140-400) Neutrophils (%) (Auto) 79 % (31-73) Lymphocytes (%) (Auto) 8 % (24-48) Monocytes (%) (Auto) 8 % (0-9) Eosinophils (%) (Auto) 4 % (0-3) Basophils (%) (Auto) 1 % (0-3) Neutrophils # (Auto) 13.2 x10^3/uL (1.8-7.7) Lymphocytes # (Auto) 1.3 x10^3/uL (1.0-4.8) Monocytes # (Auto) 1.4 x10^3/uL (0.0-1.1) Eosinophils # (Auto) 0.7 x10^3/uL (0.0-0.7) Basophils # (Auto) 0.2 x10^3/uL (0.0-0.2) Iron Level 23 ug/dL (65-175) Total Iron Binding Capacity 162 ug/dL (250-450) Iron Saturation 14 % (15-34) Triglycerides Level 66 mg/dL (0-150) Cholesterol Level 103 mg/dL (0-200) LDL Cholesterol, Calculated 53 mg/dL (0-100) VLDL Cholesterol, Calculated 13 mg/dL (0-40) Non-HDL Cholesterol Calculated 66 mg/dL (0-129) HDL Cholesterol 37 mg/dL (40-60) Cholesterol/HDL Ratio 2.8 Review of Systems Review of Systems rt buttock pain, all else is neg Assessment and Plan Assessmemt and Plan Problems Medical Problems: (1) Acute pulmonary edema Status: Acute (2) Acute respiratory distress Status: Acute (3) ESRD (end stage renal disease) Status: Acute (4) Hypertensive urgency Status: Acute Comment Review of Relevant I have reviewed the following items tomas (where applicable) has been applied. Labs Laboratory Tests Test 03/20/19 03:00 03/20/19 03:25 03/21/19 09:20 White Blood Count 17.9 x10^3/uL (4.0-11.0) 16.8 x10^3/uL (4.0-11.0) Red Blood Count 3.25 x10^6/uL (4.30-5.70) 3.29 x10^6/uL (4.30-5.70) Hemoglobin 7.3 g/dL (13.0-17.5) 7.4 g/dL (13.0-17.5) Hematocrit 22.4 % (39.0-53.0) 22.6 % (39.0-53.0) Mean Corpuscular Volume 69 fL (79-100) 69 fL (79-100) Mean Corpuscular Hemoglobin 23 pg (25-35) 22 pg (25-35) Mean Corpuscular Hemoglobin Concent 33 g/dL (31-37) 33 g/dL (31-37) Red Cell Distribution Width 28.5 % (11.5-14.5) 29.3 % (11.5-14.5) Platelet Count 218 x10^3/uL (140-400) 207 x10^3/uL (140-400) Neutrophils (%) (Auto) 75 % (31-73) 79 % (31-73) Lymphocytes (%) (Auto) 12 % (24-48) 8 % (24-48) Monocytes (%) (Auto) 11 % (0-9) 8 % (0-9) Eosinophils (%) (Auto) 2 % (0-3) 4 % (0-3) Basophils (%) (Auto) 1 % (0-3) 1 % (0-3) Neutrophils # (Auto) 13.5 x10^3/uL (1.8-7.7) 13.2 x10^3/uL (1.8-7.7) Lymphocytes # (Auto) 2.1 x10^3/uL (1.0-4.8) 1.3 x10^3/uL (1.0-4.8) Monocytes # (Auto) 1.9 x10^3/uL (0.0-1.1) 1.4 x10^3/uL (0.0-1.1) Eosinophils # (Auto) 0.3 x10^3/uL (0.0-0.7) 0.7 x10^3/uL (0.0-0.7) Basophils # (Auto) 0.1 x10^3/uL (0.0-0.2) 0.2 x10^3/uL (0.0-0.2) Segmented Neutrophils % 68 % (35-66) Band Neutrophils % 4 % (0-9) Lymphocytes % 16 % (24-48) Monocytes % 9 % (0-10) Eosinophils % 2 % (0-5) Myelocytes % 1 % (0-0) Platelet Estimate Adequate (ADEQUATE) Polychromasia Slight Hypochromasia Mod Anisocytosis Marked Microcytosis Marked Target Cells Few Sodium Level 139 mmol/L (136-145) Potassium Level 4.7 mmol/L (3.5-5.1) Chloride Level 95 mmol/L (98-107) Carbon Dioxide Level 27 mmol/L (21-32) Anion Gap 17 (6-14) Blood Urea Nitrogen 77 mg/dL (8-26) Creatinine 15.9 mg/dL (0.7-1.3) Estimated GFR (Cockcroft-Gault) 3.7 BUN/Creatinine Ratio 5 (6-20) Glucose Level 183 mg/dL (70-99) Calcium Level 8.9 mg/dL (8.5-10.1) Total Bilirubin 0.6 mg/dL (0.2-1.0) Aspartate Amino Transf (AST/SGOT) 12 U/L (15-37) Alanine Aminotransferase (ALT/SGPT) 8 U/L (16-63) Alkaline Phosphatase 61 U/L (46-116) Total Protein 8.5 g/dL (6.4-8.2) Albumin 3.5 g/dL (3.4-5.0) Albumin/Globulin Ratio 0.7 (1.0-1.7) O2 Saturation 92 % (92-99) Arterial Blood pH 7.46 (7.35-7.45) Arterial Blood pCO2 at Patient Temp 41 mmHg (35-46) Arterial Blood pO2 at Patient Temp 62 mmHg (65-108) Arterial Blood HCO3 28 mmol/L (21-28) Arterial Blood Base Excess 4 mmol/L (-3-3) Oxyhemoglobin 88.5 % Methemoglobin 0.3 % (0.0-1.9) Carbon Monoxide, Quantitative 3.1 % (0.0-1.9) FiO2 50 Iron Level 23 ug/dL (65-175) Total Iron Binding Capacity 162 ug/dL (250-450) Iron Saturation 14 % (15-34) Triglycerides Level 66 mg/dL (0-150) Cholesterol Level 103 mg/dL (0-200) LDL Cholesterol, Calculated 53 mg/dL (0-100) VLDL Cholesterol, Calculated 13 mg/dL (0-40) Non-HDL Cholesterol Calculated 66 mg/dL (0-129) HDL Cholesterol 37 mg/dL (40-60) Cholesterol/HDL Ratio 2.8 Laboratory Tests Test 03/21/19 09:20 White Blood Count 16.8 x10^3/uL (4.0-11.0) Red Blood Count 3.29 x10^6/uL (4.30-5.70) Hemoglobin 7.4 g/dL (13.0-17.5) Hematocrit 22.6 % (39.0-53.0) Mean Corpuscular Volume 69 fL (79-100) Mean Corpuscular Hemoglobin 22 pg (25-35) Mean Corpuscular Hemoglobin Concent 33 g/dL (31-37) Red Cell Distribution Width 29.3 % (11.5-14.5) Platelet Count 207 x10^3/uL (140-400) Neutrophils (%) (Auto) 79 % (31-73) Lymphocytes (%) (Auto) 8 % (24-48) Monocytes (%) (Auto) 8 % (0-9) Eosinophils (%) (Auto) 4 % (0-3) Basophils (%) (Auto) 1 % (0-3) Neutrophils # (Auto) 13.2 x10^3/uL (1.8-7.7) Lymphocytes # (Auto) 1.3 x10^3/uL (1.0-4.8) Monocytes # (Auto) 1.4 x10^3/uL (0.0-1.1) Eosinophils # (Auto) 0.7 x10^3/uL (0.0-0.7) Basophils # (Auto) 0.2 x10^3/uL (0.0-0.2) Iron Level 23 ug/dL (65-175) Total Iron Binding Capacity 162 ug/dL (250-450) Iron Saturation 14 % (15-34) Triglycerides Level 66 mg/dL (0-150) Cholesterol Level 103 mg/dL (0-200) LDL Cholesterol, Calculated 53 mg/dL (0-100) VLDL Cholesterol, Calculated 13 mg/dL (0-40) Non-HDL Cholesterol Calculated 66 mg/dL (0-129) HDL Cholesterol 37 mg/dL (40-60) Cholesterol/HDL Ratio 2.8 Medications Current Medications Albuterol/ Ipratropium (Duoneb) 3 ml 1X ONCE NEB Last administered on 03/20/19at 03:14; Start 03/20/19 at 03:15; Stop 03/20/19 at 03:16; Status DC Nitroglycerin (Nitro-Bid Oint) 1 inch 1X ONCE TP Last administered on 03/20/19at 03:27; Start 03/20/19 at 03:15; Stop 03/20/19 at 03:16; Status DC Morphine Sulfate (Morphine Sulfate) 2 mg 1X ONCE IV Last administered on 03/20/19at 03:28; Start 03/20/19 at 03:15; Stop 03/20/19 at 03:16; Status DC Albuterol/ Ipratropium (Duoneb) 3 ml STK-MED ONCE .ROUTE ; Start 03/20/19 at 03:12; Stop 03/20/19 at 03:13; Status DC Ondansetron HCl (Zofran) 4 mg PRN Q8HRS PRN IV NAUSEA/VOMITING; Start 03/20/19 at 04:00; Stop 03/21/19 at 03:59; Status DC Morphine Sulfate (Morphine Sulfate) 2 mg PRN Q2HR PRN IV PAIN; Start 03/20/19 at 04:00; Stop 03/21/19 at 03:59; Status DC Acetaminophen (Tylenol) 650 mg PRN Q4HRS PRN PO FEVER Last administered on 03/20/19at 23:30; Start 03/20/19 at 04:00; Stop 03/21/19 at 03:59; Status DC Hydralazine HCl (Apresoline Inj) 10 mg 1X ONCE IVP Last administered on 03/20/19at 04:38; Start 03/20/19 at 04:30; Stop 03/20/19 at 04:33; Status DC Hydralazine HCl (Apresoline Inj) 10 mg PRN Q4HRS PRN IVP ELEVATED BP, SEE COMMENTS Last administered on 03/21/19at 08:06; Start 03/20/19 at 04:15 Albuterol/ Ipratropium (Duoneb) 3 ml RTQID NEB Last administered on 03/21/19at 08:31; Start 03/20/19 at 08:45 Sodium Chloride 1,000 ml @ 1,000 mls/hr Q1H PRN IV hypotension; Start 03/20/19 at 10:04; Stop 03/20/19 at 16:03; Status DC Albumin Human 200 ml @ 200 mls/hr 1X PRN PRN IV Hypotension; Start 03/20/19 at 10:15; Stop 03/20/19 at 16:14; Status DC Sodium Chloride 1,000 ml @ 400 mls/hr Q2H30M PRN IV PATENCY; Start 03/20/19 at 10:04; Stop 03/20/19 at 22:03; Status DC Info (PHARMACY MONITORING -- do not chart) 1 each PRN DAILY PRN MC SEE COMMENTS; Start 03/20/19 at 10:15; Status UNV Info (PHARMACY MONITORING -- do not chart) 1 each PRN DAILY PRN MC SEE COMMENTS; Start 03/20/19 at 10:15 Amlodipine Besylate (Norvasc) 10 mg DAILY PO Last administered on 03/21/19at 08:07; Start 03/20/19 at 13:00 Aspirin (Ecotrin) 81 mg DAILY PO Last administered on 03/21/19at 08:08; Start 03/20/19 at 13:00 Gabapentin (Neurontin) 300 mg DAILY PO Last administered on 03/21/19at 08:06; Start 03/20/19 at 13:00 Lisinopril (Prinivil) 40 mg DAILY PO Last administered on 03/21/19at 08:09; Start 03/20/19 at 13:00 Metoprolol Tartrate (Lopressor) 50 mg BID PO Last administered on 03/21/19at 08:08; Start 03/20/19 at 21:00; Stop 03/21/19 at 10:44; Status DC Famotidine (Pepcid) 20 mg QHS PO Last administered on 03/20/19at 21:33; Start 03/20/19 at 21:00 Labetalol HCl (Normodyne Iv Push) 20 mg PRN Q4HRS PRN IVP HYPERTENSION Last administered on 03/20/19at 17:18; Start 03/20/19 at 16:30 Vancomycin HCl (Vanco Per Pharmacy) 1 each PRN DAILY PRN MC SEE COMMENTS Last administered on 03/21/19at 10:38; Start 03/20/19 at 16:45 Piperacillin Sod/ Tazobactam Sod (Zosyn Per Pharmacy) 1 each PRN DAILY PRN MC SEE COMMENTS; Start 03/20/19 at 16:45 Piperacillin Sod/ Tazobactam Sod 2.25 gm/Sodium Chloride 50 ml @ 100 mls/hr Q8HRS IV Last administered on 03/21/19at 05:47; Start 03/20/19 at 17:00 Vancomycin HCl 2 gm/Sodium Chloride 500 ml @ 250 mls/hr 1X ONCE IV Last administered on 03/20/19at 17:55; Start 03/20/19 at 17:30; Stop 03/20/19 at 19:29; Status DC Vancomycin HCl (Vancomycin Random Level) 1 each 1X ONCE MC ; Start 03/22/19 at 05:00; Stop 03/22/19 at 05:01 Lactobacillus Rhamnosus (Culturelle) 1 cap BID PO ; Start 03/21/19 at 21:00 Hydralazine HCl (Apresoline) 25 mg TID PO ; Start 03/21/19 at 11:00 Carvedilol (Coreg) 12.5 mg BIDWMEALS PO ; Start 03/21/19 at 17:00 Active Scripts Active Reported Aspir-Low (Aspirin) 81 Mg Tablet.dr 1 Tab PO DAILY Metoprolol Tartrate 50 Mg Tablet 50 Mg PO BID Lisinopril 40 Mg Tablet 40 Mg PO DAILY Amlodipine Besylate 10 Mg Tablet 10 Mg PO DAILY Ranitidine Hcl 150 Mg Capsule 1 Cap PO BID Gabapentin (Gabapentin) 300 Mg Capsule 300 Mg PO DAILY after dialysis on dialysis days Vitals/I & O Vital Sign - Last 24 Hours 03/20/19 03/20/19 03/20/19 03/20/19 13:26 15:00 15:24 15:25 Temp 101.0 101.0 Pulse 100 118 118 118 Resp 20 B/P (MAP) 198/106 200/90 (126) 200/90 200/90 Pulse Ox 95 O2 Delivery Nasal Cannula O2 Flow Rate 1.0 03/20/19 03/20/19 03/20/19 03/20/19 15:53 17:18 19:55 20:00 Temp 98.9 98.9 Pulse 113 105 Resp 18 B/P (MAP) 207/84 190/94 (126) Pulse Ox 100 98 O2 Delivery Nasal Cannula Nasal Cannula Nasal Cannula O2 Flow Rate 1.0 2.0 1.0 03/20/19 03/20/19 03/20/19 03/21/19 20:37 21:33 23:00 03:45 Temp 99.6 99.6 99.6 99.6 Pulse 105 89 89 Resp 20 20 B/P (MAP) 190/94 182/98 (126) 185/89 (121) Pulse Ox 98 100 100 O2 Delivery Nasal Cannula Nasal Cannula Nasal Cannula O2 Flow Rate 1.0 2.0 2.0 03/21/19 03/21/19 03/21/19 03/21/19 05:47 07:00 08:06 08:07 Temp 98.7 98.7 Pulse 89 104 107 108 Resp 18 B/P (MAP) 185/89 201/88 (125) 201/88 201/88 Pulse Ox 100 O2 Delivery Nasal Cannula O2 Flow Rate 2.0 03/21/19 03/21/19 03/21/19 08:08 08:09 08:33 Pulse 107 B/P (MAP) 201/88 201/88 Pulse Ox 99 O2 Delivery Room Air Intake and Output 03/20/19 03/20/19 03/21/19 15:00 23:00 07:00 Intake Total 200 ml 120 ml 600 ml Balance 200 ml 120 ml 600 ml LORI MATHIAS MD Mar 21, 2019 11:23
[2019-03-21] MEDS: hydrALAZINE 25 MG TABLET PO SCH ×2 (11:30→20:42)
[2019-03-21] MEDS ORDERED: ACETAMINOPHEN 325 MG TABLET. PO ONE (13:03)
[2019-03-21] MEDS: ACETAMINOPHEN 325 MG TABLET. PO PRN ×2 (13:13→18:56)
[2019-03-21 16:34] LABS: INFLUENZA A PATIENT NEGATIVE (NEGATIVE); INFLUENZA B PATIENT NEGATIVE (NEGATIVE)
[2019-03-21] MEDS: CARVEDILOL 12.5 MG TABLET. PO SCH (17:34)
[2019-03-21] MEDS: FAMOTIDINE 20 MG TABLET. PO SCH (20:42)
[2019-03-21] MEDS: LACTOBACILLUS RHAMNOSUS GG 1 CAPSULE. PO SCH (20:42)
[2019-03-22] VITALS (7 sets, daily range): BP systolic 156–193; BP diastolic 77–108
[2019-03-22] MEDS ORDERED: VANCOMYCIN RANDOM LEVEL. MC ONE (05:00)
[2019-03-22] MEDS: hydrALAZINE 20 MG/ML VIAL. IVP PRN ×2 (05:03→22:06)
[2019-03-22] MEDS: PIPERACILLIN/TAZOBACTAM 2.25 GM in IV NORMAL SALINE 50ML 50 ML IV SCH ×3 (05:03→22:06)
[2019-03-22 05:40] LABS: BASO # 0.1 x10^3/uL (0.0-0.2); BASO % 1 % (0-3); EOS # 0.9 x10^3/uL (0.0-0.7); EOS % 7 % (0-3); LYMPH # 1.9 x10^3/uL (1.0-4.8); LYMPH % 15 % (24-48); MEAN CORPUSCULAR HEMOGLOBIN 23 pg (25-35); MEAN CORPUSCULAR HGB CONC 33 g/dL (31-37); MEAN CORPUSCULAR VOLUME 69 fL (79-100); MONO # 1.4 x10^3/uL (0.0-1.1); MONO % 11 % (0-9); NEUT # 8.3 x10^3/uL (1.8-7.7); NEUT % 66 % (31-73); PLATELET COUNT 180 x10^3/uL (140-400); RED BLOOD COUNT 2.83 x10^6/uL (4.30-5.70); RED CELL DISTRIBUTION WIDTH 29.1 % (11.5-14.5); WHITE BLOOD COUNT 12.6 x10^3/uL (4.0-11.0)
[2019-03-22 05:57] LABS: ALBUMIN 2.9 g/dL (3.4-5.0); CALCIUM 8.9 mg/dL (8.5-10.1); CREATININE 13.8 mg/dL (0.7-1.3); GFR 4.4; PHOSPHORUS 4.5 mg/dL (2.6-4.7); POTASSIUM 4.9 mmol/L (3.5-5.1)
[2019-03-22 06:00] LABS: HEMATOCRIT 19.4 % (39.0-53.0); HEMOGLOBIN 6.4 g/dL (13.0-17.5)
[2019-03-22] MEDS: CARVEDILOL 12.5 MG TABLET. PO SCH ×2 (08:00→16:58)
[2019-03-22] MEDS: IPRATRPIUM/ALBUTEROL 0.5/2.5MG 3 ML NEBU. NEB SCH ×4 (08:12→20:14)
[2019-03-22] MEDS: hydrALAZINE 25 MG TABLET PO SCH ×4 (09:00→20:24)
--- NOTE | 2019-03-22 09:30 | NUR ---
pt refused medication for high blood pressure this morning. he did not want anything given prior to dialysis. Spoke with Zoila will send meds if they are needed and blood will be transfused during dialysis too.
--- NOTE | 2019-03-22 09:49 | PDOC ---
Infectious Disease Note Subjective Subjective Feeling better but tired No fevers last 24 hours Denies sweats/aches/chills/N/V/D/SOA ROS ROS per HPI Vital Sign Vital Signs Vital Signs Date Time Temp Pulse Resp B/P (MAP) Pulse Ox O2 Delivery O2 Flow Rate FiO2 03/22/19 08:14 100 Room Air 03/22/19 07:11 98.9 102 18 193/89 (123) 1.0 98.9 Physical Exam PHYSICAL EXAM GENERAL: Sleeping, arouses to name LUNGS: Clear to auscultation. HEART: S1, S2. ABDOMEN: Soft, nontender EXTREMITIES: No clubbing or cyanosis. No gross edema. SKIN: Warm to touch without signs of rash. He has a small open area on his right buttock cleft approximately a centimeter or so, did not track deep. There is no surrounding fluctuance, erythema, drainage or odor. NEUROLOGIC: Answers questions appropriately Labs Lab Laboratory Tests Test 03/21/19 15:00 03/22/19 04:50 Influenza Type A Antigen Negative (NEGATIVE) Influenza Type B Antigen Negative (NEGATIVE) White Blood Count 12.6 x10^3/uL (4.0-11.0) Red Blood Count 2.83 x10^6/uL (4.30-5.70) Hemoglobin 6.4 g/dL (13.0-17.5) Hematocrit 19.4 % (39.0-53.0) Mean Corpuscular Volume 69 fL (79-100) Mean Corpuscular Hemoglobin 23 pg (25-35) Mean Corpuscular Hemoglobin Concent 33 g/dL (31-37) Red Cell Distribution Width 29.1 % (11.5-14.5) Platelet Count 180 x10^3/uL (140-400) Neutrophils (%) (Auto) 66 % (31-73) Lymphocytes (%) (Auto) 15 % (24-48) Monocytes (%) (Auto) 11 % (0-9) Eosinophils (%) (Auto) 7 % (0-3) Basophils (%) (Auto) 1 % (0-3) Neutrophils # (Auto) 8.3 x10^3/uL (1.8-7.7) Lymphocytes # (Auto) 1.9 x10^3/uL (1.0-4.8) Monocytes # (Auto) 1.4 x10^3/uL (0.0-1.1) Eosinophils # (Auto) 0.9 x10^3/uL (0.0-0.7) Basophils # (Auto) 0.1 x10^3/uL (0.0-0.2) Sodium Level 138 mmol/L (136-145) Potassium Level 4.9 mmol/L (3.5-5.1) Chloride Level 96 mmol/L (98-107) Carbon Dioxide Level 27 mmol/L (21-32) Anion Gap 15 (6-14) Blood Urea Nitrogen 63 mg/dL (8-26) Creatinine 13.8 mg/dL (0.7-1.3) Estimated GFR (Cockcroft-Gault) 4.4 Glucose Level 104 mg/dL (70-99) Calcium Level 8.9 mg/dL (8.5-10.1) Phosphorus Level 4.5 mg/dL (2.6-4.7) Albumin 2.9 g/dL (3.4-5.0) Random Vancomycin Level 22.8 mcg/mL Micro Microbiology 03/21/19 Blood Culture - Preliminary, Resulted NO GROWTH AFTER 1 DAY Objective Assessment 1. Fever - better 2. Leukocytosis, questionable chronic elevation based when he was seen here. improving 3. Chronic kidney disease, on hemodialysis. 4. Right buttock cleft wound. No signs of active infection. 5. Uncontrolled hypertension. 6. Anemia. Plan Plan of Care Random Trough 22.8 Cont Vanc and Zosyn Flu screen neg Moniotr labs/temp HTN per Renal and primary PRBCs underway Patient seen and examined. Chart reviewed in detail. Case discussed with [employer]. Agree with above plan HUMBERTO AYON APRN Mar 22, 2019 09:49 YOU MCDANIEL MD Mar 22, 2019 18:33
[2019-03-22] MEDS ORDERED: IV NORMAL SALINE 1000ML BAG 1,000 ML IV PRN ×2 (10:00)
[2019-03-22] MEDS: VANCOMYCIN PER PHARMACY MC PRN (10:26)
--- NOTE | 2019-03-22 10:27 | NUR ---
Pharmacy Vancomycin Dosing Note S: Consulted to monitor and dose vancomycin started 03/20/19. O: PAOLO VERDE is a 63 year old M with empiric coverage for fevers, leukocytosis (no active skin infection). Other Antibiotics: ZOSYN 2.25G IV Q8HRS LABS: Last BUN: 36 Last Creatinine: 13.8 Creatinine Clearance: ERSD on HD Last WBC: 12.6 Last Procalcitonin: - Tmax (past 24 hours): 99.5 Microbiology: BLOOD CX (03/21): NGTD I/O: 400/- Drug Levels: Last Random level: 22.8 (pre-HD level) on 03/22/19 at 0500 Last dose given 03/20/19 at 1755 Vancomycin Dosing: Dosing Weight: Actual Target Trough: 15-20 A: Patient received a one time dose of vancomycin on 03/20. A pre-HD random level of 22.8 mcg/ml is estimated to be ~17 mcg/ml after HD. Initiate scheduled dosing after today's HD session. P: 1. Start Vancomycin 500 mg IV after HD sessions 2. Follow up level PRN 3. Pharmacy will continue to monitor, follow and adjust therapy as needed. MARLON MARADIAGA [facility], 03/22/19 [id number]
--- NOTE | 2019-03-22 11:10 | PDOC ---
[employer] PROGRESS NOTE Chief Complaint Chief Complaint RT gluteal boil with mild cellulitis ESRD on [facility] HD LEft av fistula MIcrocytic anemia - gets arenesp during HD C scope - polyps > 5 yrs ago ANEMIA of ESRD ACcel HTN - normal BP at home 200s NOn compliance? to meds MIssed 2-3 sessions HD bec of buttock wound History of Present Illness History of Present Illness 03/22/19 Pt seen examined while receiving dialysis. Pt resting comfortably and conversational. Pt denies shortness of breath or feeling feverish. Vitals/I&O Vitals/I&O: Vital Signs Date Time Temp Pulse Resp B/P (MAP) Pulse Ox O2 Delivery O2 Flow Rate FiO2 03/22/19 10:34 98.3 102 18 100 Room Air 98.3 03/22/19 07:11 1.0 I & O 03/21/19 03/21/19 03/22/19 15:00 23:00 07:00 Intake Total 350 ml 50 ml Output Total 0 ml Balance 350 ml 50 ml Physical Exam Physical Exam: HEENT: Nose-midline. Head- atraumatic NEUROLOGIC: Answers questions appropriately General: Alert, Cooperative, No acute distress Heart: No murmurs, Other (Regular rythmn with tachycardic rate in the low 100s) Lungs: Clear, Other (No respiratory distress. No wheezing.) Abdomen: Normal bowel sounds, Soft, No tenderness Extremities: No edema Skin: Other (No rash on visible skin.) Labs Labs: Laboratory Tests Test 03/21/19 15:00 03/22/19 04:50 Influenza Type A Antigen Negative (NEGATIVE) Influenza Type B Antigen Negative (NEGATIVE) White Blood Count 12.6 x10^3/uL (4.0-11.0) Red Blood Count 2.83 x10^6/uL (4.30-5.70) Hemoglobin 6.4 g/dL (13.0-17.5) Hematocrit 19.4 % (39.0-53.0) Mean Corpuscular Volume 69 fL (79-100) Mean Corpuscular Hemoglobin 23 pg (25-35) Mean Corpuscular Hemoglobin Concent 33 g/dL (31-37) Red Cell Distribution Width 29.1 % (11.5-14.5) Platelet Count 180 x10^3/uL (140-400) Neutrophils (%) (Auto) 66 % (31-73) Lymphocytes (%) (Auto) 15 % (24-48) Monocytes (%) (Auto) 11 % (0-9) Eosinophils (%) (Auto) 7 % (0-3) Basophils (%) (Auto) 1 % (0-3) Neutrophils # (Auto) 8.3 x10^3/uL (1.8-7.7) Lymphocytes # (Auto) 1.9 x10^3/uL (1.0-4.8) Monocytes # (Auto) 1.4 x10^3/uL (0.0-1.1) Eosinophils # (Auto) 0.9 x10^3/uL (0.0-0.7) Basophils # (Auto) 0.1 x10^3/uL (0.0-0.2) Sodium Level 138 mmol/L (136-145) Potassium Level 4.9 mmol/L (3.5-5.1) Chloride Level 96 mmol/L (98-107) Carbon Dioxide Level 27 mmol/L (21-32) Anion Gap 15 (6-14) Blood Urea Nitrogen 63 mg/dL (8-26) Creatinine 13.8 mg/dL (0.7-1.3) Estimated GFR (Cockcroft-Gault) 4.4 Glucose Level 104 mg/dL (70-99) Calcium Level 8.9 mg/dL (8.5-10.1) Phosphorus Level 4.5 mg/dL (2.6-4.7) Albumin 2.9 g/dL (3.4-5.0) Random Vancomycin Level 22.8 mcg/mL Review of Systems Review of Systems: Neurologic: Denies headache GI: Denies abdominal pain Cardiovascular: Denies chest pain Respiratory: Denies shortness of breath, denies cough Assessment and Plan Assessmemt and Plan Problems Medical Problems: (1) Acute pulmonary edema Status: Acute (2) Acute respiratory distress Status: Acute (3) ESRD (end stage renal disease) Status: Acute (4) Hypertensive urgency Status: Acute PLAN - Home medications - Antibiotics per infectious disease recommendations - Dialysis Sunday//Sunday - Monitor labs and temperature - Flu screen negative Full code Comment Review of Relevant I have reviewed the following items tomas (where applicable) has been applied. Medications: Current Medications Medications (Trade) Dose Ordered Sig/Julian Route PRN Reason Start Time Stop Time Status Last Admin Dose Admin Vancomycin HCl (Vancomycin Random Level) 1 each 1X ONCE MC 03/22/19 05:00 03/22/19 05:01 DC 03/22/19 05:00 Lactobacillus Rhamnosus (Culturelle) 1 cap BID PO 03/21/19 21:00 03/21/19 20:42 Carvedilol (Coreg) 12.5 mg BIDWMEALS PO 03/21/19 17:00 03/21/19 17:34 Acetaminophen (Tylenol) 650 mg PRN Q6HRS PRN PO fever 03/21/19 13:15 03/21/19 18:56 FOUZIA VALENZUELA III DO Mar 22, 2019 11:10
--- NOTE | 2019-03-22 14:07 | PDOC ---
SUBJECTIVE ROS States feeling better OBJECTIVE Vital Signs Vital Signs Date Time Temp Pulse Resp B/P (MAP) Pulse Ox O2 Delivery O2 Flow Rate FiO2 03/22/19 13:00 98.0 96 16 180/99 98.0 03/22/19 12:41 Room Air 03/22/19 10:34 100 03/22/19 08:00 1.0 I & 0 Intake and Output 03/22/19 06:59 Intake Total 400 ml Output Total 0 ml Balance 400 ml Intake Oral 300 ml IV Total 100 ml Output Urine Total 0 ml PHYSICAL EXAM Physical Exam GENERAL: No apparent distress. HEENT: Head is normocephalic, atraumatic,OM moist NECK: Supple, no JVD, LUNGS: bilateral crackles. HEART: RRR, S1, S2 present. ABDOMEN: Soft, nontender. EXTREMITIES: Without any cyanosis, clubbing, or edema. NEUROLOGIC: Normal speech, normal tone. A & O x 3, moves all extremities, no obvious focal deficits. PSYCHIATRIC: Normal affect, normal mood. Stable. SKIN: No ulcerations or rashes, good skin turgor, no jaundice. No Ty DIAGNOSIS/ASSESSMENT Assessment & Plan ESRD- On HD TTS- [facility] seen on HD , tolerating well, continue as ordered, Surinder Sosa Acute on chronic systolic and diastolic heart failure-Per Primary Anemia - Hgb < 7 s/p PRBC with hd [facility] per protocol for Hgb <10 Chronic HTN - Uncontrolled, Antihypertensives - cardiology managing COMMENT/RELEVANT DATA Meds Current Medications Medications (Trade) Dose Ordered Sig/Julian Start Time Stop Time Status Last Admin Dose Admin Acetaminophen (Tylenol) 650 mg PRN Q6HRS PRN 03/21/19 13:15 03/21/19 18:56 650 MG Albumin Human 200 ml @ 200 mls/hr 1X PRN PRN 03/20/19 10:15 03/20/19 16:14 DC Albuterol/ Ipratropium (Duoneb) 3 ml RTQID 03/20/19 08:45 03/22/19 12:39 3 ML Amlodipine Besylate (Norvasc) 10 mg DAILY 03/20/19 13:00 03/21/19 08:07 10 MG Aspirin (Ecotrin) 81 mg DAILY 03/20/19 13:00 03/21/19 08:08 81 MG Carvedilol (Coreg) 12.5 mg BIDWMEALS 03/21/19 17:00 03/21/19 17:34 12.5 MG Famotidine (Pepcid) 20 mg QODAY@2100 03/22/19 21:00 Gabapentin (Neurontin) 300 mg DAILY 03/20/19 13:00 03/21/19 08:06 300 MG Hydralazine HCl (Apresoline Inj) 10 mg PRN Q4HRS PRN 03/20/19 04:15 03/22/19 05:03 10 MG Hydralazine HCl (Apresoline) 25 mg TID 03/21/19 11:00 03/21/19 20:42 25 MG Info (PHARMACY MONITORING -- do not chart) 1 each PRN DAILY PRN 03/20/19 10:15 Labetalol HCl (Normodyne Iv Push) 20 mg PRN Q4HRS PRN 03/20/19 16:30 03/20/19 17:18 20 MG Lactobacillus Rhamnosus (Culturelle) 1 cap BID 03/21/19 21:00 03/21/19 20:42 1 CAP Lisinopril (Prinivil) 40 mg DAILY 03/20/19 13:00 03/21/19 08:09 40 MG Metoprolol Tartrate (Lopressor) 50 mg BID 03/20/19 21:00 03/21/19 10:44 DC 03/21/19 08:08 50 MG Morphine Sulfate (Morphine Sulfate) 2 mg PRN Q2HR PRN 03/20/19 04:00 03/21/19 03:59 DC Nitroglycerin (Nitro-Bid Oint) 1 inch 1X ONCE 03/20/19 03:15 03/20/19 03:16 DC 03/20/19 03:27 1 INCH Ondansetron HCl (Zofran) 4 mg PRN Q8HRS PRN 03/20/19 04:00 03/21/19 03:59 DC Piperacillin Sod/ Tazobactam Sod (Zosyn Per Pharmacy) 1 each PRN DAILY PRN 03/20/19 16:45 Piperacillin Sod/ Tazobactam Sod 2.25 gm/Sodium Chloride 50 ml @ 100 mls/hr Q8HRS 03/20/19 17:00 03/22/19 05:03 100 MLS/HR Sodium Chloride 1,000 ml @ 400 mls/hr Q2H30M PRN 03/20/19 10:04 03/20/19 22:03 DC Vancomycin HCl (Vanco Per Pharmacy) 1 each PRN DAILY PRN 03/20/19 16:45 03/22/19 10:26 1 EACH Vancomycin HCl (Vancomycin Random Level) 1 each 1X ONCE 03/22/19 05:00 03/22/19 05:01 DC 03/22/19 05:00 1 EACH Vancomycin HCl 500 mg/Sodium Chloride 100 ml @ 100 mls/hr QTUTHSA 03/22/19 16:00 Vancomycin HCl 2 gm/Sodium Chloride 500 ml @ 250 mls/hr 1X ONCE 03/20/19 17:30 03/20/19 19:29 DC 03/20/19 17:55 250 MLS/HR Lab Laboratory Tests Test 03/21/19 15:00 03/22/19 04:50 Influenza Type A Antigen Negative (NEGATIVE) Influenza Type B Antigen Negative (NEGATIVE) White Blood Count 12.6 x10^3/uL (4.0-11.0) Red Blood Count 2.83 x10^6/uL (4.30-5.70) Hemoglobin 6.4 g/dL (13.0-17.5) Hematocrit 19.4 % (39.0-53.0) Mean Corpuscular Volume 69 fL (79-100) Mean Corpuscular Hemoglobin 23 pg (25-35) Mean Corpuscular Hemoglobin Concent 33 g/dL (31-37) Red Cell Distribution Width 29.1 % (11.5-14.5) Platelet Count 180 x10^3/uL (140-400) Neutrophils (%) (Auto) 66 % (31-73) Lymphocytes (%) (Auto) 15 % (24-48) Monocytes (%) (Auto) 11 % (0-9) Eosinophils (%) (Auto) 7 % (0-3) Basophils (%) (Auto) 1 % (0-3) Neutrophils # (Auto) 8.3 x10^3/uL (1.8-7.7) Lymphocytes # (Auto) 1.9 x10^3/uL (1.0-4.8) Monocytes # (Auto) 1.4 x10^3/uL (0.0-1.1) Eosinophils # (Auto) 0.9 x10^3/uL (0.0-0.7) Basophils # (Auto) 0.1 x10^3/uL (0.0-0.2) Sodium Level 138 mmol/L (136-145) Potassium Level 4.9 mmol/L (3.5-5.1) Chloride Level 96 mmol/L (98-107) Carbon Dioxide Level 27 mmol/L (21-32) Anion Gap 15 (6-14) Blood Urea Nitrogen 63 mg/dL (8-26) Creatinine 13.8 mg/dL (0.7-1.3) Estimated GFR (Cockcroft-Gault) 4.4 Glucose Level 104 mg/dL (70-99) Calcium Level 8.9 mg/dL (8.5-10.1) Phosphorus Level 4.5 mg/dL (2.6-4.7) Albumin 2.9 g/dL (3.4-5.0) Random Vancomycin Level 22.8 mcg/mL Results All relevant outside records, renal labs, imaging studies, telemetry/EKG's were reviewed. ANGELA HERRERA MD Mar 22, 2019 14:07
[2019-03-22] MEDS ORDERED: DIALYSIS PATIENT. MC PRN (15:45)
[2019-03-22] MEDS ORDERED: VANCOMYCIN 500 MG in IV NORMAL SALINE 100ML 100 ML IV SCH (16:00)
[2019-03-22] MEDS: ACETAMINOPHEN 325 MG TABLET. PO PRN ×2 (16:54→20:23)
[2019-03-22] MEDS: LACTOBACILLUS RHAMNOSUS GG 1 CAPSULE. PO SCH ×2 (16:55→20:24)
[2019-03-22] MEDS: ASPIRIN ENTERIC COATED 81 MG TABLET.DR. PO SCH (16:55)
[2019-03-22] MEDS: GABAPENTIN 300 MG CAPSULE. PO SCH (16:55)
[2019-03-22] MEDS: amLODIPine BESYLATE 10 MG TABLET PO SCH (16:59)
[2019-03-22] MEDS: LISINOPRIL 20 MG TABLET PO SCH (17:00)
[2019-03-22] MEDS ORDERED: DARBEPOETIN ALFA 60 MCG/0.3 ML DISP.SYRIN. SQ SCH (21:00)
[2019-03-22] MEDS ORDERED: FAMOTIDINE 20 MG TABLET. PO SCH (21:00)
[2019-03-23 03:30] VITALS: BP 174/86
[2019-03-23] MEDS: hydrALAZINE 20 MG/ML VIAL. IVP PRN (05:08)
[2019-03-23] MEDS: PIPERACILLIN/TAZOBACTAM 2.25 GM in IV NORMAL SALINE 50ML 50 ML IV SCH (05:09)
[2019-03-23 06:57] LABS: CALCIUM 8.9 mg/dL (8.5-10.1); CREATININE 10.5 mg/dL (0.7-1.3); POTASSIUM 4.2 mmol/L (3.5-5.1)
[2019-03-23 06:58] LABS: BASO # 0.1 x10^3/uL (0.0-0.2); BASO % 1 % (0-3); EOS # 1.1 x10^3/uL (0.0-0.7); EOS % 9 % (0-3); HEMATOCRIT 25.2 % (39.0-53.0); HEMOGLOBIN 8.4 g/dL (13.0-17.5); LYMPH # 1.7 x10^3/uL (1.0-4.8); LYMPH % 15 % (24-48); MEAN CORPUSCULAR HEMOGLOBIN 24 pg (25-35); MEAN CORPUSCULAR HGB CONC 34 g/dL (31-37); MEAN CORPUSCULAR VOLUME 71 fL (79-100); MONO # 1.2 x10^3/uL (0.0-1.1); MONO % 10 % (0-9); NEUT # 7.3 x10^3/uL (1.8-7.7); NEUT % 65 % (31-73); PLATELET COUNT 241 x10^3/uL (140-400); RED BLOOD COUNT 3.57 x10^6/uL (4.30-5.70); RED CELL DISTRIBUTION WIDTH 29.1 % (11.5-14.5); WHITE BLOOD COUNT 11.3 x10^3/uL (4.0-11.0)
[2019-03-23 07:16] VITALS: BP 172/80
[2019-03-23] MEDS: IPRATRPIUM/ALBUTEROL 0.5/2.5MG 3 ML NEBU. NEB SCH ×2 (08:16→12:11)
[2019-03-23] MEDS: LACTOBACILLUS RHAMNOSUS GG 1 CAPSULE. PO SCH (08:40)
[2019-03-23] MEDS: amLODIPine BESYLATE 10 MG TABLET PO SCH (08:40)
[2019-03-23] MEDS: GABAPENTIN 300 MG CAPSULE. PO SCH (08:40)
[2019-03-23] MEDS: CARVEDILOL 12.5 MG TABLET. PO SCH (08:40)
[2019-03-23] MEDS: hydrALAZINE 25 MG TABLET PO SCH (08:41)
[2019-03-23] MEDS: ASPIRIN ENTERIC COATED 81 MG TABLET.DR. PO SCH (08:41)
[2019-03-23] MEDS: LISINOPRIL 20 MG TABLET PO SCH (08:41)
--- NOTE | 2019-03-23 08:56 | PDOC ---
Infectious Disease Note Subjective Subjective Doesn't care [facility] food Hoping to go home soon Denies F/C/N/V/D?SOA ROS ROS per HPI Vital Sign Vital Signs Vital Signs Date Time Temp Pulse Resp B/P (MAP) Pulse Ox O2 Delivery O2 Flow Rate FiO2 03/23/19 08:41 105 03/23/19 08:18 98 Room Air 03/23/19 07:16 98.0 18 172/80 (110) 98.0 03/22/19 19:35 1.0 Physical Exam PHYSICAL EXAM GENERAL: Lying down, alert, smiling LUNGS: Clear to auscultation. HEART: S1, S2. ABDOMEN: Soft, nontender EXTREMITIES: No clubbing or cyanosis. No gross edema.LUE-AVF SKIN: Warm to touch without signs of rash. Right buttock cleft wound. NEUROLOGIC: Alert and answers questions appropriately Labs Lab Laboratory Tests Test 03/23/19 06:25 White Blood Count 11.3 x10^3/uL (4.0-11.0) Red Blood Count 3.57 x10^6/uL (4.30-5.70) Hemoglobin 8.4 g/dL (13.0-17.5) Hematocrit 25.2 % (39.0-53.0) Mean Corpuscular Volume 71 fL (79-100) Mean Corpuscular Hemoglobin 24 pg (25-35) Mean Corpuscular Hemoglobin Concent 34 g/dL (31-37) Red Cell Distribution Width 29.1 % (11.5-14.5) Platelet Count 241 x10^3/uL (140-400) Neutrophils (%) (Auto) 65 % (31-73) Lymphocytes (%) (Auto) 15 % (24-48) Monocytes (%) (Auto) 10 % (0-9) Eosinophils (%) (Auto) 9 % (0-3) Basophils (%) (Auto) 1 % (0-3) Neutrophils # (Auto) 7.3 x10^3/uL (1.8-7.7) Lymphocytes # (Auto) 1.7 x10^3/uL (1.0-4.8) Monocytes # (Auto) 1.2 x10^3/uL (0.0-1.1) Eosinophils # (Auto) 1.1 x10^3/uL (0.0-0.7) Basophils # (Auto) 0.1 x10^3/uL (0.0-0.2) Sodium Level 135 mmol/L (136-145) Potassium Level 4.2 mmol/L (3.5-5.1) Chloride Level 94 mmol/L (98-107) Carbon Dioxide Level 27 mmol/L (21-32) Anion Gap 14 (6-14) Blood Urea Nitrogen 44 mg/dL (8-26) Creatinine 10.5 mg/dL (0.7-1.3) Estimated GFR (Cockcroft-Gault) 6.0 Glucose Level 132 mg/dL (70-99) Calcium Level 8.9 mg/dL (8.5-10.1) Micro Microbiology 03/21/19 Blood Culture - Preliminary, Resulted NO GROWTH AFTER 1 DAY Objective Assessment 1. Fever - better BC neg so far 2. Leukocytosis, questionable chronic elevation based when he was seen here. improving 3. Chronic kidney disease, on hemodialysis. 4. Right buttock cleft wound. No signs of active infection. 5. Uncontrolled hypertension. 6. Anemia. s/p PRBCs 03/22 Plan Plan of Care Random Trough 22.8 Cont Vanc and Zosyn Flu screen neg Moniotr labs/temp HTN per Renal and primary Patient seen and examined. Chart reviewed in detail. Case discussed with DIV[employer]IED [employer] SUPERVISOR. Agree with above plan. HUMBERTO AYON APRN Mar 23, 2019 08:56 YOU MCDANIEL MD Mar 23, 2019 18:22
[2019-03-23 09:22] LABS: % ATYL 4 % (0-0); % BASOS 1 % (0-3); % EOS 8 % (0-5); % LYMPHS 14 % (24-48); % MONOS 9 % (0-10); % SEGS 64 % (35-66); PLT ESTIMATE ADEQUATE (ADEQUATE)
[2019-03-23 09:24] LABS: ANISOCYTOSIS MOD; HYPOCHROMIA SLIGHT; MICROCYTOSIS MOD; OVALOCYTES PRESENT; POIKILOCYTOSIS PRESENT; TARGET CELLS FEW
[2019-03-23 10:19] VITALS: BP 147/82
[2019-03-23] MEDS: VANCOMYCIN PER PHARMACY MC PRN (10:56)
--- NOTE | 2019-03-23 11:11 | PDOC ---
[employer] PROGRESS NOTE Chief Complaint Chief Complaint RT gluteal boil with mild cellulitis ESRD on [facility] HD LEft av fistula MIcrocytic anemia - gets arenesp during HD C scope - polyps > 5 yrs ago ANEMIA of ESRD ACcel HTN - normal BP at home 200s NOn compliance? to meds MIssed 2-3 sessions HD bec of buttock wound History of Present Illness History of Present Illness 03/22/19 Pt seen examined while receiving dialysis. Pt resting comfortably and conversational. Pt denies shortness of breath or feeling feverish. 03/23 Pt seen and examined Pt resting comfortable Pt wanting to go home, feeling better Vitals/I&O Vitals/I&O: Vital Signs Date Time Temp Pulse Resp B/P (MAP) Pulse Ox O2 Delivery O2 Flow Rate FiO2 03/23/19 10: 97.8 96 18 147/82 (103) 97 Room Air 97.8 03/22/19 19:35 1.0 I & O 03/22/19 03/22/19 03/23/19 15:00 23:00 07:00 Intake Total 80 ml 850 ml 250 ml Output Total 0 ml Balance 80 ml 850 ml 250 ml Physical Exam Physical Exam: GENERAL: Lying down, alert, smiling LUNGS: Clear to auscultation. HEART: S1, S2. ABDOMEN: Soft, nontender EXTREMITIES: No clubbing or cyanosis. No gross edema.LUE-AVF SKIN: Warm to touch without signs of rash. Right buttock cleft wound. NEUROLOGIC: Alert and answers questions appropriately General: Alert, Cooperative, No acute distress Heart: No murmurs, Other (Regular rythmn with tachycardic rate in the low 100s) Lungs: Clear, Other (No respiratory distress. No wheezing.) Abdomen: Normal bowel sounds, Soft, No tenderness Extremities: No edema Skin: Other (No rash on visible skin.) Labs Labs: Laboratory Tests Test 03/23/19 06:25 White Blood Count 11.3 x10^3/uL (4.0-11.0) Red Blood Count 3.57 x10^6/uL (4.30-5.70) Hemoglobin 8.4 g/dL (13.0-17.5) Hematocrit 25.2 % (39.0-53.0) Mean Corpuscular Volume 71 fL (79-100) Mean Corpuscular Hemoglobin 24 pg (25-35) Mean Corpuscular Hemoglobin Concent 34 g/dL (31-37) Red Cell Distribution Width 29.1 % (11.5-14.5) Platelet Count 241 x10^3/uL (140-400) Neutrophils (%) (Auto) 65 % (31-73) Lymphocytes (%) (Auto) 15 % (24-48) Monocytes (%) (Auto) 10 % (0-9) Eosinophils (%) (Auto) 9 % (0-3) Basophils (%) (Auto) 1 % (0-3) Neutrophils # (Auto) 7.3 x10^3/uL (1.8-7.7) Lymphocytes # (Auto) 1.7 x10^3/uL (1.0-4.8) Monocytes # (Auto) 1.2 x10^3/uL (0.0-1.1) Eosinophils # (Auto) 1.1 x10^3/uL (0.0-0.7) Basophils # (Auto) 0.1 x10^3/uL (0.0-0.2) Segmented Neutrophils % 64 % (35-66) Lymphocytes % 14 % (24-48) Atypical Lymphocytes % (Manual) 4 % (0-0) Monocytes % 9 % (0-10) Eosinophils % 8 % (0-5) Basophils % 1 % (0-3) Platelet Estimate Adequate (ADEQUATE) Hypochromasia Slight Poikilocytosis Present Anisocytosis Mod Microcytosis Mod Target Cells Few Ovalocytes Present Sodium Level 135 mmol/L (136-145) Potassium Level 4.2 mmol/L (3.5-5.1) Chloride Level 94 mmol/L (98-107) Carbon Dioxide Level 27 mmol/L (21-32) Anion Gap 14 (6-14) Blood Urea Nitrogen 44 mg/dL (8-26) Creatinine 10.5 mg/dL (0.7-1.3) Estimated GFR (Cockcroft-Gault) 6.0 Glucose Level 132 mg/dL (70-99) Calcium Level 8.9 mg/dL (8.5-10.1) Review of Systems Review of Systems: No CP, SOB Assessment and Plan Assessmemt and Plan Problems Medical Problems: (1) Acute pulmonary edema Status: Acute (2) Acute respiratory distress Status: Acute (3) ESRD (end stage renal disease) Status: Acute (4) Hypertensive urgency Status: Acute Assessment RT gluteal boil with mild cellulitis ESRD on HD LEft av fistula MIcrocytic anemia - gets arenesp during HD C scope - polyps > 5 yrs ago ANEMIA of ESRD ACcel HTN - normal BP at home 200s NOn compliance? to meds MIssed 2-3 sessions HD bec of buttock wound Plan Home medications Antibiotics per infectious disease recommendations Dialysis Sunday//Sunday Monitor labs and temperature Blood pressure controlled Flu screen negative Full code DC when ok with subspecialist Comment Review of Relevant I have reviewed the following items tomas (where applicable) has been applied. Medications: Current Medications Medications (Trade) Dose Ordered Sig/Julian Route PRN Reason Start Time Stop Time Status Last Admin Dose Admin Vancomycin HCl 500 mg/Sodium Chloride 100 ml @ 100 mls/hr QTUTHSA IV 03/22/19 16:00 03/22/19 16:54 Famotidine (Pepcid) 20 mg QODAY@2100 PO 03/22/19 21:00 03/22/19 20:24 Darbepoetin Pb (ARANESP for DIALYSIS PTS) 60 mcg WEEKLYHS SQ 03/22/19 21:00 03/22/19 20:24 FOUZIA VALENZUELA III DO Mar 23, 2019 11:11
[2019-03-23] MEDS ORDERED: HYDR-2868 PO (11:27)
[2019-03-23] MEDS ORDERED: CARV25TA PO (11:32)
[2019-03-23] MEDS ORDERED: AMOX1TAB61 PO (11:34)
[2019-03-23] MEDS ORDERED: LACT1CAP29 PO (11:39)
--- NOTE | 2019-03-23 12:15 | PDOC ---
SUBJECTIVE ROS Stable OBJECTIVE Vital Signs Vital Signs Date Time Temp Pulse Resp B/P (MAP) Pulse Ox O2 Delivery O2 Flow Rate FiO2 03/23/19 12:12 Room Air 03/23/19 10:19 97.8 96 18 147/82 (103) 97 97.8 03/22/19 19:35 1.0 I & 0 Intake and Output 03/23/19 07:00 Intake Total 1180 ml Output Total 0 ml Balance 1180 ml Intake Oral 1000 ml IV Total 100 ml Blood Product IV Normal Saline Flush 80 ml Output Urine Total 0 ml PHYSICAL EXAM Physical Exam GENERAL: No apparent distress. HEENT: Head is normocephalic, atraumatic,OM moist NECK: Supple, no JVD, LUNGS: bilateral crackles. HEART: RRR, S1, S2 present. ABDOMEN: Soft, nontender. EXTREMITIES: Without any cyanosis, clubbing, or edema. NEUROLOGIC: Normal speech, normal tone. A & O x 3, moves all extremities, no obvious focal deficits. PSYCHIATRIC: Normal affect, normal mood. Stable. SKIN: No ulcerations or rashes, good skin turgor, no jaundice. No Ty DIAGNOSIS/ASSESSMENT Assessment & Plan ESRD- On HD TTS- [facility] No indication today Acute on chronic systolic and diastolic heart failure-Per Primary Anemia - Hgb < 7 s/p PRBC on 03/22 [facility] per protocol for Hgb <10 Chronic HTN - Uncontrolled, better Antihypertensives - cardiology managing COMMENT/RELEVANT DATA Meds Current Medications Medications (Trade) Dose Ordered Sig/Julian Start Time Stop Time Status Last Admin Dose Admin Acetaminophen (Tylenol) 650 mg PRN Q6HRS PRN 03/21/19 13:15 03/22/19 20:23 650 MG Albumin Human 200 ml @ 200 mls/hr 1X PRN PRN 03/20/19 10:15 03/20/19 16:14 DC Albuterol/ Ipratropium (Duoneb) 3 ml RTQID 03/20/19 08:45 03/23/19 12:11 3 ML Amlodipine Besylate (Norvasc) 10 mg DAILY 03/20/19 13:00 03/23/19 08:40 10 MG Aspirin (Ecotrin) 81 mg DAILY 03/20/19 13:00 03/23/19 08:41 81 MG Carvedilol (Coreg) 12.5 mg BIDWMEALS 03/21/19 17:00 03/23/19 08:40 12.5 MG Darbepoetin Pb (ARANESP for DIALYSIS PTS) 60 mcg WEEKLYHS 03/22/19 21:00 03/22/19 20:24 60 MCG Famotidine (Pepcid) 20 mg QODAY@2100 03/22/19 21:00 03/22/19 20:24 20 MG Gabapentin (Neurontin) 300 mg DAILY 03/20/19 13:00 03/23/19 08:40 300 MG Hydralazine HCl (Apresoline Inj) 10 mg PRN Q4HRS PRN 03/20/19 04:15 03/23/19 05:08 10 MG Hydralazine HCl (Apresoline) 25 mg TID 03/21/19 11:00 03/23/19 08:41 25 MG Info (PHARMACY MONITORING -- do not chart) 1 each PRN DAILY PRN 03/22/19 15:45 Labetalol HCl (Normodyne Iv Push) 20 mg PRN Q4HRS PRN 03/20/19 16:30 03/20/19 17:18 20 MG Lactobacillus Rhamnosus (Culturelle) 1 cap BID 03/21/19 21:00 03/23/19 08:40 1 CAP Lisinopril (Prinivil) 40 mg DAILY 03/20/19 13:00 03/23/19 08:41 40 MG Metoprolol Tartrate (Lopressor) 50 mg BID 03/20/19 21:00 03/21/19 10:44 DC 03/21/19 08:08 50 MG Morphine Sulfate (Morphine Sulfate) 2 mg PRN Q2HR PRN 03/20/19 04:00 03/21/19 03:59 DC Nitroglycerin (Nitro-Bid Oint) 1 inch 1X ONCE 03/20/19 03:15 03/20/19 03:16 DC 03/20/19 03:27 1 INCH Ondansetron HCl (Zofran) 4 mg PRN Q8HRS PRN 03/20/19 04:00 03/21/19 03:59 DC Piperacillin Sod/ Tazobactam Sod (Zosyn Per Pharmacy) 1 each PRN DAILY PRN 03/20/19 16:45 Piperacillin Sod/ Tazobactam Sod 2.25 gm/Sodium Chloride 50 ml @ 100 mls/hr Q8HRS 03/20/19 17:00 03/23/19 05:09 100 MLS/HR Sodium Chloride 1,000 ml @ 400 mls/hr Q2H30M PRN 03/22/19 10:00 03/22/19 21:59 DC Vancomycin HCl (Vanco Per Pharmacy) 1 each PRN DAILY PRN 03/20/19 16:45 03/23/19 10:56 1 EACH Vancomycin HCl (Vancomycin Random Level) 1 each 1X ONCE 03/22/19 05:00 03/22/19 05:01 DC 03/22/19 05:00 1 EACH Vancomycin HCl 500 mg/Sodium Chloride 100 ml @ 100 mls/hr QTUTHSA 03/22/19 16:00 03/22/19 16:54 100 MLS/HR Vancomycin HCl 2 gm/Sodium Chloride 500 ml @ 250 mls/hr 1X ONCE 03/20/19 17:30 03/20/19 19:29 DC 03/20/19 17:55 250 MLS/HR Lab Laboratory Tests Test 03/23/19 06:25 White Blood Count 11.3 x10^3/uL (4.0-11.0) Red Blood Count 3.57 x10^6/uL (4.30-5.70) Hemoglobin 8.4 g/dL (13.0-17.5) Hematocrit 25.2 % (39.0-53.0) Mean Corpuscular Volume 71 fL (79-100) Mean Corpuscular Hemoglobin 24 pg (25-35) Mean Corpuscular Hemoglobin Concent 34 g/dL (31-37) Red Cell Distribution Width 29.1 % (11.5-14.5) Platelet Count 241 x10^3/uL (140-400) Neutrophils (%) (Auto) 65 % (31-73) Lymphocytes (%) (Auto) 15 % (24-48) Monocytes (%) (Auto) 10 % (0-9) Eosinophils (%) (Auto) 9 % (0-3) Basophils (%) (Auto) 1 % (0-3) Neutrophils # (Auto) 7.3 x10^3/uL (1.8-7.7) Lymphocytes # (Auto) 1.7 x10^3/uL (1.0-4.8) Monocytes # (Auto) 1.2 x10^3/uL (0.0-1.1) Eosinophils # (Auto) 1.1 x10^3/uL (0.0-0.7) Basophils # (Auto) 0.1 x10^3/uL (0.0-0.2) Segmented Neutrophils % 64 % (35-66) Lymphocytes % 14 % (24-48) Atypical Lymphocytes % (Manual) 4 % (0-0) Monocytes % 9 % (0-10) Eosinophils % 8 % (0-5) Basophils % 1 % (0-3) Platelet Estimate Adequate (ADEQUATE) Hypochromasia Slight Poikilocytosis Present Anisocytosis Mod Microcytosis Mod Target Cells Few Ovalocytes Present Sodium Level 135 mmol/L (136-145) Potassium Level 4.2 mmol/L (3.5-5.1) Chloride Level 94 mmol/L (98-107) Carbon Dioxide Level 27 mmol/L (21-32) Anion Gap 14 (6-14) Blood Urea Nitrogen 44 mg/dL (8-26) Creatinine 10.5 mg/dL (0.7-1.3) Estimated GFR (Cockcroft-Gault) 6.0 Glucose Level 132 mg/dL (70-99) Calcium Level 8.9 mg/dL (8.5-10.1) Results All relevant outside records, renal labs, imaging studies, telemetry/EKG's were reviewed. ANGELA HERRERA MD Mar 23, 2019 12:15
--- NOTE | 2019-03-23 12:49 | DS ---
DATE OF DISCHARGE: 03/23/2019 ADMISSION DIAGNOSES: Respiratory failure with respiratory distress secondary to volume overload secondary to noncompliance with dialysis. DISCHARGE DIAGNOSES: 1. Resolving volume overload and respiratory failure secondary to noncompliance with dialysis. 2. Resolving fevers. CONSULTS: Infectious Disease, Cardiology, and Nephrology. PROCEDURES: None. HOSPITAL COURSE: The patient is a pleasant middle-aged male who basically skipped his dialysis ended up with volume overload. He was admitted. We did consult Nephrology and get him dialyzed. He developed some fevers. He had leukocytosis. We did put him on empiric IV antibiotics. Over the past few days, he is doing much better. Today, I saw him and examined him. He is requesting discharge. I called Infectious Disease explained that I would like to put him on Augmentin and let him go. They were little concerned that they are not sure exactly what they are treating, but the patient has threatened to leave AMA. He is up walking in his best interest. I thank you and we were very glad and let him have the Augmentin and let him get home if okay with Infectious Disease, we hope to discharge this afternoon if okay with him. DISPOSITION: Home. ACTIVITY: As tolerated. DIET: Renal. MEDICATIONS: Please see the MRAD. TOTAL TIME: 33 minutes. FOUZIA VALENZUELA DO DR: ELIUD/barak JOB#: [id number] / [id number]
--- NOTE | 2019-03-23 13:10 | NUR ---
Discharge: Teaching verbal and written. Reviewed medications, follow-up, dialysis, hypertension, smoking cessation, ect. Patient verbalized understanding. 3 written prescriptions given to patient (Coreg, Augmentin, and hydralazine). All belongings with patient. Patient assisted off of unit via wheelchair accompanied by nurse.
== END 2019-03-23 13:00 | disposition home or self-care (01) | DRG 871 ==
LOC: ER 02:55 → 2 SOUTH 04:00
PROVIDERS: ADMIT Internal Medicine; ATTEND Internal Medicine
PROC: 30233N1 Transfusion of Nonautologous Red Blood Cells into Peripheral Vein, Percutaneous Approach (ICD-10-PCS; principal; 2019-03-20)
DX: A41.9 Sepsis, unspecified organism (principal); N18.6 End stage renal disease; I50.43 Acute on chronic combined systolic (congestive) and diastolic (congestive) heart failure; J96.90 Respiratory failure, unspecified, unspecified whether with hypoxia or hypercapnia; L03.317 Cellulitis of buttock; I13.2 Hypertensive heart and chronic kidney disease with heart failure and with stage 5 chronic kidney disease, or end stage renal disease; E87.70 Fluid overload, unspecified; E11.22 Type 2 diabetes mellitus with diabetic chronic kidney disease; F41.9 Anxiety disorder, unspecified; M19.90 Unspecified osteoarthritis, unspecified site; F17.210 Nicotine dependence, cigarettes, uncomplicated; I16.0 Hypertensive urgency; D63.1 Anemia in chronic kidney disease; E78.5 Hyperlipidemia, unspecified; L02.92 Furuncle, unspecified; B34.9 Viral infection, unspecified; D50.9 Iron deficiency anemia, unspecified; Z99.2 Dependence on renal dialysis; Z91.15 Patient's noncompliance with renal dialysis; Z91.19 Patient's noncompliance with other medical treatment and regimen; Z87.11 Personal history of peptic ulcer disease; Z86.73 Personal history of transient ischemic attack (TIA), and cerebral infarction without residual deficits; Z82.49 Family history of ischemic heart disease and other diseases of the circulatory system
CPT/HCPCS: 36415; 36600; 71045; 80048; 80053; 80061; 80069; 80202; 82805; 83540; 83550; 85007; 85025; 86850; 86900; 86901; 86920; 87040; 87804; 93005; 93306; 94640; 94760; 96374; 96375; 99406; J0360; J0882; J2270; J2543; J3370; J3490; J7040; J7620; P9016; 99291-25; G0378